=== PATIENT | female | born 1935 | race Caucasian/White ===

== ENCOUNTER 2017-11-13 15:44 | Emergency (ER) | payer MEDICARE, OTHER ==
--- NOTE | 2017-11-13 18:39 | EDM.PDOC ---
ED HPI GENERAL MEDICAL PROBLEM - General Chief Complaint: Headache Stated Complaint: CONCERNED ABOUT STROKE,FEELS FINE NOW Time Seen by Provider: 11/13/17 18:20 Source of Information: Reports: Patient, Family, Old Records History Limitations: Reports: No Limitations - History of Present Illness INITIAL COMMENTS - FREE TEXT/NARRATIVE: 82 yo nearly 3 ppd smoker awoke from a nap this afternoon with slurred speech and a mild FOX. Her sx's lasted about 2.5 minutes and she is now back to her baseline. Her daughter witnessed this and is visiting from [place]. Is already on aspirin. No pHx of CVA. Is on ASA daily and did take it today. Does not use alcohol. No chest pain. No hx of afib. Onset: Today Onset Date: 11/13/17 Onset Time: 14:30 Duration: Minutes: (2.5 estimated.), Resolved Prior to Arrival Location: Reports: Face (speech affected) Quality: Reports: Other (no pain) Severity: Mild Improves with: Reports: Other (time) Worsens with: Reports: Other (? 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 below) (none) - Related Data Allergies Allergy/AdvReac Type Severity Reaction Status Date / Time No Known Allergies Allergy Verified 11/13/17 16:45 Home Meds: Home Meds Digoxin 0.25 mg PO DAILY 11/13/17 [History] Insulin Glarg,Human.Rec.Analog [Lantus Solostar] 18 units SQ DAILY 11/13/17 [ History] Lisinopril [Prinivil] 30 mg PO DAILY 11/13/17 [History] SitaGLIPtin [Januvia] 100 mg PO DAILY 11/13/17 [History] metFORMIN [Glucophage] 1,000 mg PO BIDMEALS 11/13/17 [History] Past Medical History HEENT History: Reports: Cataract, Impaired Vision Cardiovascular History: Reports: Arrhythmia, Hypertension Gastrointestinal History: Reports: Cholelithiasis, Diverticulosis 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: Musculoskeletal History: Reports: Arthritis, Fracture Endocrine/Metabolic History: Reports: Diabetes, Type II - Past Surgical History GI Surgical History: Reports: Cholecystectomy, Colon Social & Family History - Tobacco Use Smoking Status *Q: Current Every Day Smoker Years of Tobacco use: 70 Packs/Tins Daily: 3 - Caffeine Use Caffeine Use: Reports: Coffee - Recreational Drug Use Recreational Drug Use: No ED ROS GENERAL - Review of Systems Review Of Systems: See Below Constitutional: Reports: No Symptoms HEENT: Reports: No Symptoms Respiratory: Reports: No Symptoms Cardiovascular: Reports: No Symptoms GI/Abdominal: Reports: No Symptoms : Reports: No Symptoms Musculoskeletal: Reports: No Symptoms Skin: Reports: No Symptoms Neurological: Reports: Trouble Speaking Psychiatric: Reports: No Symptoms ED EXAM, NEURO - Physical Exam Exam: See Below Exam Limited By: No Limitations General Appearance: Alert, WD/WN, No Apparent Distress Eye Exam: Bilateral Eye: EOMI, Normal Inspection, PERRL Ears: Normal External Exam, Normal Canal, Hearing Grossly Normal Nose: Normal Inspection, Normal Mucosa, No Blood Throat/Mouth: Normal Inspection, Normal Lips, Normal Oropharynx, Normal Voice, No Airway Compromise Head Exam: Atraumatic, Normocephalic Neck: Normal Inspection, Supple, Non-Tender Respiratory/Chest: No Respiratory Distress, Lungs Clear, Normal Breath Sounds, No Accessory Muscle Use, Decreased Breath Sounds (diffusely) Cardiovascular: Regular Rate, Rhythm, No Edema GI/Abdominal: Normal Bowel Sounds, Soft, Non-Tender, No Distention Neurological: Alert, Normal Mood/Affect, Normal Dorsiflexion, CN II-XII Intact, No Motor/Sensory Deficits, Oriented x 3 Back Exam: Normal Inspection Extremities: Normal Inspection, Normal Range of Motion, Non-Tender, No Pedal Edema Psychiatric: Normal Affect, Normal Mood Skin Exam: Warm, Dry, Intact, Normal Color, No Rash Course - Vital Signs Last Recorded V/S: Last Vital Signs Temp 36.9 C 11/13/17 17:05 Pulse 73 11/13/17 19:19 Resp 15 11/13/17 19:19 BP 160/72 H 11/13/17 19:21 Pulse Ox 94 L 11/13/17 19:19 - Orders/Labs/Meds Orders: Active Orders 24 hr Category Date Time Status Cardiac Monitoring [RC] .As Directed Care 11/13/17 18:32 Active Head wo Cont [CT] Stat Exams 11/13/17 18:33 Taken CULTURE URINE [RM] Stat Lab 11/13/17 19:45 Received UA W/MICROSCOPIC [URIN] Stat Lab 11/13/17 19:15 Ordered Labs: Laboratory Tests 11/13/17 11/13/17 11/13/17 Range/Units 18:35 18:35 19:15 WBC 9.9 (4.5-11.0) K/uL RBC 4.85 (3.30-5.50) M/uL Hgb 14.3 (12.0-15.0) g/dL Hct 41.5 (36.0-48.0) % MCV 86 (80-98) fL MCH 30 (27-31) pg MCHC 35 (32-36) % Plt Count 301 (150-400) K/uL Sodium 137 L (140-148) mmol/L Potassium 4.3 (3.6-5.2) mmol/L Chloride 100 (100-108) mmol/L Carbon Dioxide 29 (21-32) mmol/L Anion Gap 12.3 (5.0-14.0) mmol/L BUN 12 (7-18) mg/dL Creatinine 0.8 (0.6-1.0) mg/dL Est Cr Clr Drug Dosing 45.62 mL/min Estimated GFR (MDRD) > 60 (>60) Glucose 104 (74-106) mg/dL Calcium 9.4 (8.5-10.1) mg/dL Troponin I < 0.017 (0.000-0.056) ng/mL Urine Color Yellow Urine Appearance Cloudy Urine pH 6.0 (4.5-8.0) Ur Specific [place] 1.015 (1.008-1.030) Urine Protein Negative (NEGATIVE) mg/dL Urine Glucose (UA) Normal (NEGATIVE) mg/dL Urine Ketones Negative (NEGATIVE) mg/dL Urine Occult Blood Negative (NEGATIVE) Urine Nitrite Positive H (NEGATIVE) Urine Bilirubin Negative (NEGATIVE) Urine Urobilinogen Normal (NORMAL) mg/dL Ur Leukocyte Esterase Negative (NEGATIVE) Urine RBC 0-5 (0-5) Urine WBC 5-10 H (0-5) Ur Epithelial Cells Few Amorphous Sediment Not seen Urine Bacteria Many Urine Mucus Not seen Meds: Medications Discontinued Medications Generic Name Dose Route Start Last Admin Trade Name Freq PRN Reason Stop Dose Admin Lisinopril 10 mg 11/13/17 19:07 11/13/17 19:21 Prinivil PO 11/13/17 19:08 10 mg ONETIME ONE Administration - Radiology Interpretation Free Text/Narrative:: Head CT scan-negative CT Results Date: 11/13/17 CT Results Time: 20:20 Departure - Departure Time of Disposition: 20:31 Disposition: Home, Self-Care 01 Condition: Fair Clinical Impression: Tobacco abuse TIA (transient ischemic attack) Qualifiers: Transient cerebral ischemia type: carotid artery syndrome (hemispheric) Qualified Code(s): G45.1 - Carotid artery syndrome (hemispheric) - Discharge Information Referrals: Panfilo De Leon MD [Primary Care Provider] - Forms: ED Department Discharge Additional Instructions: Increase your lisinopril to 40 mg daily. Continue your aspirin daily. See your doctor soon for a lipid panel if you've not had one in the past 5 yrs. Return for a carotid ultrasound to see if you have any blockages in those arteries that feed your brain. Smoke as little as possible and work with your provider to help you find ways to quit. Also return for a Holter monitor to make sure you are not having episodes of atrial fibrillation that would raise your risk of stroke. Return as needed. - My Orders Last 24 Hours: My Active Orders 11/13/17 18:32 Cardiac Monitoring [RC] .As Directed 11/13/17 18:33 Head wo Cont [CT] Stat 11/13/17 19:15 UA W/MICROSCOPIC [URIN] Stat 11/13/17 19:45 CULTURE URINE [RM] Stat - Assessment/Plan Last 24 Hours: My Active Orders 11/13/17 18:32 Cardiac Monitoring [RC] .As Directed 11/13/17 18:33 Head wo Cont [CT] Stat 11/13/17 19:15 UA W/MICROSCOPIC [URIN] Stat 11/13/17 19:45 CULTURE URINE [RM] Stat
[2017-11-13] MEDS ORDERED: Lisinopril 10 MG Tab PO ONE (19:07)
== END 2017-11-13 20:40 | disposition home or self-care (01) ==
LOC: JP.ED 15:44
DX: G45.1 Carotid artery syndrome (hemispheric) (principal); F17.210 Nicotine dependence, cigarettes, uncomplicated; I10 Essential (primary) hypertension; E11.9 Type 2 diabetes mellitus without complications; Z79.4 Long term (current) use of insulin; Z79.899 Other long term (current) drug therapy
CPT/HCPCS: 36415; 70450; 80048; 81001; 84484; 85027; 87086; 99284; A9270

== ENCOUNTER 2020-01-06 10:00 | Inpatient (IN) | payer MEDICARE, OTHER ==
[2020-01-06] MEDS ORDERED: Sodium Chloride 0.9% 1,000 ML IV SCH ×2 (10:45→12:58)
--- NOTE | 2020-01-06 10:55 | EDM.PDOC ---
ED HPI GENERAL MEDICAL PROBLEM - General Chief Complaint: Lower Extremity Injury/Pain Stated Complaint: MEDICAL VIA NORTH Time Seen by Provider: 01/06/20 10:50 Source of Information: Reports: Patient History Limitations: Reports: No Limitations - History of Present Illness INITIAL COMMENTS - FREE TEXT/NARRATIVE: pt fell on Monday and she landed on her rt side. She slipped on wayer in her house. She had some pain at first but the pain has gotten progressively worse. She is not able to bear weight on the rt leg. Onset: Other (pt fell on Monday, ) Duration: Hour(s): Location: Reports: Lower Extremity, Right Associated Symptoms: Reports: Other (pain in rt hip with movement. ) Right Hip Pain Score (Numeric/FACES): 2 - Related Data Allergies Allergy/AdvReac Type Severity Reaction Status Date / Time No Known Allergies Allergy Verified 01/06/20 10:08 Home Meds: Home Meds Digoxin 0.25 mg PO DAILY 11/13/17 [History] metFORMIN [Glucophage] 1,000 mg PO BIDMEALS 11/13/17 [History] Aspirin [Angelique Chewable Aspirin] 81 mg PO DAILY 01/06/20 [History] Insulin Detemir [Levemir Flextouch] 22 units SUBCUT BEDTIME 01/06/20 [History] Liraglutide [Victoza] 0.6 ml SUBCUT DAILY 01/06/20 [History] lisinopriL [Lisinopril] 30 mg PO DAILY 01/06/20 [History] Past Medical History HEENT History: Reports: Cataract, Impaired Vision Cardiovascular History: Reports: Arrhythmia, Hypertension Gastrointestinal History: Reports: Cholelithiasis, Diverticulosis 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: Musculoskeletal History: Reports: Arthritis, Fracture Endocrine/Metabolic History: Reports: Diabetes, Type II - Past Surgical History HEENT Surgical History: Reports: Cataract Surgery GI Surgical History: Reports: Cholecystectomy, Colon Social & Family History - Tobacco Use Smoking Status *Q: Heavy Tobacco Smoker Years of Tobacco use: 67 Packs/Tins Daily: 2 - Caffeine Use Caffeine Use: Reports: Coffee - Recreational Drug Use Recreational Drug Use: No Review of Systems - Review of Systems Review Of Systems: See Below Constitutional: Reports: No Symptoms Eyes: Reports: No Symptoms Ears: Reports: No Symptoms Nose: Reports: No Symptoms Mouth/Throat: Reports: No Symptoms Respiratory: Reports: No Symptoms Cardiovascular: Reports: No Symptoms GI/Abdominal: Reports: No Symptoms Genitourinary: Reports: No Symptoms Musculoskeletal: Reports: Other (pain in the rt hip area. ) Skin: Reports: No Symptoms Neurological: Reports: No Symptoms ED EXAM, GENERAL - Physical Exam Exam: See Below Free Text/Narrative:: pt arrived with pain in her rt hip. Sh fell on Monday and has been having a fair amount of pain since that time. She has no other injuries. She is a diabetic but has not had recent problems. Exam Limited By: No Limitations General Appearance: Alert, Anxious, Moderate Distress, Other (pupils equal and reactive. ) Ears: Normal TMs Nose: Normal Inspection Throat/Mouth: Normal Inspection Head: Atraumatic Neck: Normal Inspection Respiratory/Chest: No Respiratory Distress Cardiovascular: Regular Rate, Rhythm GI/Abdominal: Soft, Non-Tender (Female) Exam: Deferred Rectal (Female) Exam: Deferred Back Exam: Normal Inspection Extremities: Other (pt has pain in the rt hip with any motion. It is rotated outward. ) Neurological: Alert, Oriented, Normal Cognition Psychiatric: Normal Affect Course - Vital Signs Last Recorded V/S: Last Vital Signs Temp 36.2 C 01/06/20 10:04 Pulse 86 01/06/20 10:04 Resp 16 01/06/20 10:04 BP 173/75 H 01/06/20 10:04 Pulse Ox 96 01/06/20 10:04 - Orders/Labs/Meds Orders: Active Orders 24 hr Category Date Time Status EKG Documentation Completion [RC] ASDIRECTED Care 01/06/20 10:50 Active Hip Min 2V or 3V w Pelvis Rt [CR] Stat Exams 01/06/20 10:23 Taken COMPREHENSIVE METABOLIC PN,CMP [CHEM] Urgent Lab 01/06/20 10:59 Received UA W/MICROSCOPIC [URIN] Urgent Lab 01/06/20 10:44 Ordered Sodium Chloride 0.9% [Normal Saline] 1,000 ml Med 01/06/20 10:45 Active IV ASDIRECTED EKG 12 Lead [EK] Routine Ther 01/06/20 10:50 Ordered Medication Orders Sodium Chloride (Normal Saline) 1,000 mls @ 250 mls/hr IV ASDIRECTED SHELBI Last Admin: 01/06/20 10:58 Dose: 250 mls/hr Documented by: LIZZIE Labs: Laboratory Tests 01/06/20 Range/Units 10:59 WBC 14.2 H (4.5-11.0) K/uL RBC 5.02 (3.30-5.50) M/uL Hgb 14.6 (12.0-15.0) g/dL Hct 43.2 (36.0-48.0) % MCV 86 (80-98) fL MCH 29 (27-31) pg MCHC 34 (32-36) % Plt Count 312 (150-400) K/uL Neut % (Auto) 83 H (36-66) % Lymph % (Auto) 11 L (24-44) % [place] % (Auto) 5 (2-6) % Eos % (Auto) 1 L (2-4) % Baso % (Auto) 0 (0-1) % Meds: Medications Generic Name Dose Route Start Last Admin Trade Name Freq PRN Reason Stop Dose Admin Sodium Chloride 1,000 mls @ 250 mls/hr 01/06/20 10:45 01/06/20 10:58 Normal Saline IV 250 mls/hr ASDIRECTED SHELBI Administration - Re-Assessments/Exams Free Text/Narrative Re-Assessment/Exam: 01/06/20 11:18 Pt was found to have a fracture in the neck of the hip with some impaction Departure - Departure Time of Disposition: 11:19 Disposition: Admitted As Inpatient 67 Condition: Fair Clinical Impression: Fracture of right hip, Diabetes mellitus - Discharge Information Referrals: PCP,None [Primary Care Provider] - Forms: ED Department Discharge Care Plan Goals: admit to Dr Ely and Dr Murcia Sepsis Event Note (ED) - Evaluation Sepsis Screening Result: No Definite Risk - Focused Exam Vital Signs: Vital Signs Temp Pulse Resp BP Pulse Ox 01/06/20 10:04 36.2 C 86 16 173/75 H 96 - My Orders Last 24 Hours: My Active Orders 01/06/20 10:23 Hip Min 2V or 3V w Pelvis Rt [CR] Stat 01/06/20 10:44 UA W/MICROSCOPIC [URIN] Urgent 01/06/20 10:45 Sodium Chloride 0.9% [Normal Saline] 1,000 ml IV ASDIRECTED 01/06/20 10:50 EKG Documentation Completion [RC] ASDIRECTED EKG 12 Lead [EK] Routine 01/06/20 10:59 COMPREHENSIVE METABOLIC PN,CMP [CHEM] Urgent - Assessment/Plan Last 24 Hours: My Active Orders 01/06/20 10:23 Hip Min 2V or 3V w Pelvis Rt [CR] Stat 01/06/20 10:44 UA W/MICROSCOPIC [URIN] Urgent 01/06/20 10:45 Sodium Chloride 0.9% [Normal Saline] 1,000 ml IV ASDIRECTED 01/06/20 10:50 EKG Documentation Completion [RC] ASDIRECTED EKG 12 Lead [EK] Routine 01/06/20 10:59 COMPREHENSIVE METABOLIC PN,CMP [CHEM] Urgent
--- NOTE | 2020-01-06 11:41 | PCM.HP.2 ---
H&P History of Present Illness - General Date of Service: 01/06/20 Admit Problem/Dx: Admission Diagnosis/Problem Admission Diagnosis/Problem Fracture of hip Source of Information: Patient, Family, Provider, RN Notes Reviewed History Limitations: Reports: No Limitations - History of Present Illness Initial Comments - Free Text/Narative: Ms. Ng is an 84-year-old woman who was admitted through the emergency department for further management of right hip pain secondary to a right hip fracture. She had been doing relatively well until 3 days prior to admission when she fell and noted immediate onset of right hip pain. She was able to get around over the next 3 days with use of a walker but had ongoing severe pain in her hip. She presented to the emergency department this morning and x-ray does document a fracture. This has been reviewed by Dr. Rogers, plan is for surgical repair. She otherwise has been doing relatively well up until the fall. Denies recent symptoms of chest pain or pressure or increased shortness of breath. She has a 94-vuro-weim smoking history and smoked up until the time of this admission. She has had no difficulty with general anesthesia and has no family history of adverse reaction to general anesthetic. She denies any hi story of DVT, PE, or bleeding abnormalities. Right Hip Pain Score (Numeric/FACES): 2 - Related Data Allergies/Adverse Reactions: Allergies Allergy/AdvReac Type Severity Reaction Status Date / Time No Known Allergies Allergy Verified 01/06/20 10:08 Home Medications: Home Meds Digoxin 0.25 mg PO DAILY 11/13/17 [History] metFORMIN [Glucophage] 1,000 mg PO BIDMEALS 11/13/17 [History] Aspirin [Angelique Chewable Aspirin] 81 mg PO DAILY 01/06/20 [History] Insulin Detemir [Levemir Flextouch] 22 units SUBCUT BEDTIME 01/06/20 [History] Liraglutide [Victoza] 0.6 ml SUBCUT DAILY 01/06/20 [History] lisinopriL [Lisinopril] 30 mg PO DAILY 01/06/20 [History] Past Medical History HEENT History: Reports: Cataract, Impaired Vision Cardiovascular History: Reports: Arrhythmia, Hypertension Gastrointestinal History: Reports: Cholelithiasis, Diverticulosis 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: Musculoskeletal History: Reports: Arthritis, Fracture Endocrine/Metabolic History: Reports: Diabetes, Type II - Past Surgical History HEENT Surgical History: Reports: Cataract Surgery GI Surgical History: Reports: Cholecystectomy, Colon Social & Family History - Tobacco Use Smoking Status *Q: Heavy Tobacco Smoker Years of Tobacco use: 67 Packs/Tins Daily: 2 - Caffeine Use Caffeine Use: Reports: Coffee - Recreational Drug Use Recreational Drug Use: No H&P Review of Systems - Review of Systems: Review Of Systems: See Below General: Reports: No Symptoms HEENT: Reports: No Symptoms Pulmonary: Reports: No Symptoms Cardiovascular: Reports: No Symptoms Gastrointestinal: Reports: No Symptoms Genitourinary: Reports: No Symptoms Musculoskeletal: Reports: Other (Right hip pain) Skin: Reports: No Symptoms Psychiatric: Reports: No Symptoms Neurological: Reports: No Symptoms Hematologic/Lymphatic: Reports: No Symptoms Immunologic: Reports: No Symptoms Exam - Exam Exam: See Below - Vital Signs Vital Signs: Last Vital Signs Temp 97.1 F 01/06/20 10:04 Pulse 84 01/06/20 11:08 Resp 16 01/06/20 11:08 BP 164/81 H 01/06/20 11:08 Pulse Ox 92 L 01/06/20 11:08 Weight: 135 lb - Exam Quality Assessment: DVT Prophylaxis General: Alert, Oriented, Cooperative, Moderate Distress HEENT: Conjunctiva Clear, Hearing Intact, Mucosa Moist & [place], Normal Nasal Septum, Posterior Pharynx Clear, Pupils Equal Neck: Supple, Trachea Midline, +2 Carotid Pulse wo Bruit Lungs: Clear to Auscultation, Normal Respiratory Effort, Decreased Breath Sounds Cardiovascular: Regular Rate, Regular Rhythm, Normal S1, Normal S2 GI/Abdominal Exam: Soft, Non-Tender, No Organomegaly, No Distention Skin: Warm, Dry, Intact Neurological: Cranial Nerves Intact, Strength Equal Bilateral, Normal Speech, Normal Tone, Sensation Intact. No: Focal Deficit Neuro Extensive - Mental Status: Alert, Oriented x3, Normal Mood/Affect, Normal Cognition, Memory Intact - Patient Data Lab Results Last 24 hrs: Laboratory Results - last 24 hr 01/06/20 Range/Units 10:59 WBC 14.2 H (4.5-11.0) K/uL RBC 5.02 (3.30-5.50) M/uL Hgb 14.6 (12.0-15.0) g/dL Hct 43.2 (36.0-48.0) % MCV 86 (80-98) fL MCH 29 (27-31) pg MCHC 34 (32-36) % Plt Count 312 (150-400) K/uL Neut % (Auto) 83 H (36-66) % Lymph % (Auto) 11 L (24-44) % [place] % (Auto) 5 (2-6) % Eos % (Auto) 1 L (2-4) % Baso % (Auto) 0 (0-1) % Result Diagrams: 01/06/20 10:59 01/06/20 10:59 Sepsis Event Note - Evaluation Sepsis Screening Result: No Definite Risk - Focused Exam Vital Signs: Vital Signs Temp Pulse Resp BP Pulse Ox 01/06/20 11:08 84 16 164/81 H 92 L 01/06/20 10:04 97.1 F 86 16 173/75 H 96 Date Exam was Performed: 01/06/20 Time Exam was Performed: 12:16 *Q Meaningful Use (ADM) - VTE *Q VTE Pharmacological Contraindications *Q: Patient Scheduled Surgery - VTE Risk Assess *Q Each Risk Factor Represents 1 Point: None Total Score 1 Point Risk Factors: 0 Each Risk Factor Represents 2 Points: None Total Score 2 Point Risk Factors: 0 Each Risk Factor Represents 3 Points: Age 75 Years or Greater Total Score 3 Point Risk Factors: 3 Each Risk Factor Represents 5 Points: Hip, Pelvis or Leg Fracture, Less than 1 month Total Score 5 Point Risk Factors: 5 Venous Thromboembolism Risk Factor Score *Q: 8 Problem List Initiated/Reviewed/Updated: Yes Orders Last 24hrs: Active Orders 24 hr Category Date Time Status Patient Status Manage Transfer [TRANSFER] Routine ADT 01/06/20 11:33 Active EKG Documentation Completion [RC] ASDIRECTED Care 01/06/20 10:50 Active Chest 1V Frontal [CR] Stat Exams 01/06/20 11:11 Taken Hip Min 2V or 3V w Pelvis Rt [CR] Stat Exams 01/06/20 10:23 Taken COMPREHENSIVE METABOLIC PN,CMP [CHEM] Urgent Lab 01/06/20 10:59 Received UA W/MICROSCOPIC [URIN] Urgent Lab 01/06/20 10:44 Ordered Sodium Chloride 0.9% [Normal Saline] 1,000 ml Med 01/06/20 10:45 Active IV ASDIRECTED Resuscitation Status Routine Resus Stat 01/06/20 11:35 Ordered EKG 12 Lead [EK] Routine Ther 01/06/20 10:50 Ordered Medication Orders Sodium Chloride (Normal Saline) 1,000 mls @ 250 mls/hr IV ASDIRECTED SHELBI Last Admin: 01/06/20 10:58 Dose: 250 mls/hr Documented by: LIZZIE Assessment/Plan Comment:: ASSESSMENT AND PLAN RIGHT HIP FRACTURE-she fell 3 days ago and has had significant pain in her right hip since then. X-ray obtained in the emergency department documents fracture. -Consult Dr. Rogers -N.p.o. until seen by Dr. Rogers -IV fluids for hydration -Pain and nausea medication as needed HYPERTENSION -Continue outpatient medications TYPE 2 DIABETES MELLITUS -Continue usual dose of long-acting insulin -Hold metformin -4 times daily glucometers -Low-dose sliding scale Humalog MAINTENANCE ISSUES -DVT prophylaxis; SCUDs, Lovenox postop -GI prophylaxis; not indicated -Byers catheter; not indicated -Nutrition; consistent carbohydrate diet -Nicotine dependence; nicotine patch and nicotine gum as needed CODE STATUS-FULL CODE ADMISSION STATUS-patient will be admitted to inpatient status, expect at least a 2 night hospital stay for evaluation and management of problems as outlined above. At the time of this admission I do not reasonably expected evaluation and management of this problem will require more than a 96 hour hospital stay. DISPOSITION-anticipate discharge to home after the hospital stay. PRIMARY CARE PROVIDER- - Mortality Measure Prognosis:: Good
[2020-01-06] MEDS ORDERED: Nicotine Polacrilex 2 MG Gum CHEW PRN (12:24)
--- NOTE | 2020-01-06 12:31 | CR ---
Hip Min 2V or 3V w Pelvis Rt CLINICAL HISTORY: Fall, right hip pain FINDINGS: Patient is comminuted fracture of the femoral neck. There is minimal displacement IMPRESSION: Comminuted fracture right femoral neck
--- NOTE | 2020-01-06 12:47 | CR ---
CHEST: Portable 01/06/2020 at 11:31 AM CLINICAL HISTORY:Hip fracture COMPARISON:None FINDINGS: The heart size, pulmonary vascularity and hilar structures are normal. No infiltrate effusion or pneumothorax is seen. Lungs are hyperaerated. IMPRESSION: No acute cardiopulmonary process. Emphysematous changes.
[2020-01-06] MEDS ORDERED: fentaNYL 100 MCG/2 ML SDV ONE (12:56)
[2020-01-06] MEDS ORDERED: Propofol 200 MG/20 ML SDV ONE (12:56)
[2020-01-06] MEDS ORDERED: Midazolam 1 MG/ML 2 ML SDV ONE (12:56)
[2020-01-06] MEDS ORDERED: Ondansetron 4 MG/2 ML SDV IV PRN (12:58)
[2020-01-06] MEDS ORDERED: 50% Dextrose in Water 50 ML Syringe IV PRN (12:58)
[2020-01-06] MEDS ORDERED: Acetaminophen 325 MG Tab PO PRN (12:58)
[2020-01-06] MEDS ORDERED: Polyethylene Glycol 3350 Powder 17 GM Packet PO PRN (12:58)
[2020-01-06] MEDS ORDERED: Glucose Gel 15 GM in 37.5 GM Tube PO PRN (12:58)
[2020-01-06] MEDS ORDERED: Sodium Chloride 0.9% 10 ML Syringe FLUSH PRN (12:58)
[2020-01-06] MEDS: Nicotine 21 MG/24 Hr Patch TRDERM SCH (13:48)
[2020-01-06] MEDS: HYDROmorphone 0.5 MG/0.5 ML Syringe IVPUSH PRN ×2 (13:48→22:39)
[2020-01-06] MEDS ORDERED: Povidone-Iodine 10% Soln 118.25 ML Bottle ONE (14:11)
[2020-01-06] MEDS ORDERED: ceFAZolin 1 GM Vial ONE (16:19)
[2020-01-06] MEDS ORDERED: Sodium Chloride 0.9% 10 ML ONE (16:19)
[2020-01-06] MEDS ORDERED: Lactated Ringers 1,000 ML ONE (16:44)
[2020-01-06] MEDS ORDERED: Morphine 2 MG/ML SYRINGE IVPUSH PRN (17:26)
[2020-01-06] MEDS ORDERED: traMADol 50 MG Tab PO PRN (17:26)
[2020-01-06] MEDS: Insulin Lispro 100 Unit/ML 3 ML KwikPen SUBCUT SCH ×2 (18:20→21:10)
[2020-01-06] MEDS: oxyCODONE 5 MG Tab PO PRN (19:54)
[2020-01-06] MEDS ORDERED: INSULIN DETEMIR 22 UNIT SUBCUT SCH (21:00)
[2020-01-06] MEDS: Insulin Glargine,Human Rec. Analog 100 Units/ML 3 ML Pen SUBCUT SCH (21:07)
[2020-01-06] MEDS: Nozin Nasal Sanitizer NASBOTH SCH (21:11)
[2020-01-06] MEDS: Aspirin 325 MG Tab.EC PO SCH (21:11)
[2020-01-07] MEDS ORDERED: ceFAZolin 1 GM in Sodium Chloride 0.9% 50 ML IV SCH ×2
[2020-01-07] MEDS: oxyCODONE 5 MG Tab PO PRN ×5 (02:36→22:53)
[2020-01-07] MEDS: Insulin Lispro 100 Unit/ML 3 ML KwikPen SUBCUT SCH ×4 (07:23→21:19)
[2020-01-07] MEDS ORDERED: ceFAZolin 1 GM in Premix Bag 1 BAG IV SCH (08:00)
[2020-01-07] MEDS: Nicotine 21 MG/24 Hr Patch TRDERM SCH (08:17)
[2020-01-07] MEDS: Docusate Sodium 100 MG Cap PO SCH (08:17)
[2020-01-07] MEDS: Aspirin 325 MG Tab.EC PO SCH ×2 (08:17→21:20)
[2020-01-07] MEDS: Liraglutide (rDNA Origin) 0.6 MG/0.1 ML 3 ML Pen SUBCUT SCH (08:21)
[2020-01-07] MEDS ORDERED: LISINOPRIL 30 MG PO SCH (09:00)
[2020-01-07] MEDS ORDERED: Non-Formulary Medication 1 Each (Digoxin [Digoxin] 0.25 MG) PO SCH (09:00)
[2020-01-07] MEDS ORDERED: Liraglutide (rDNA Origin) 0.6 MG/0.1 ML 3 ML Pen SUBCUT SCH (09:00)
[2020-01-07] MEDS: Nozin Nasal Sanitizer NASBOTH SCH ×2 (09:09→21:20)
--- NOTE | 2020-01-07 09:19 | CR ---
Hip Min 1V Rt CLINICAL HISTORY: Postop FINDINGS: Patient has had the placement of a right hemiprosthesis following femoral neck fracture. Component appears well-seated IMPRESSION: Postop placement right hip hemiarthroplasty
[2020-01-07] MEDS: Digoxin 125 MCG Tab PO SCH (12:34)
--- NOTE | 2020-01-07 12:41 | PCM.PN ---
- General Info Date of Service: 01/07/20 Subjective Update: Ms. Ng has been stable status post surgical repair of a right hip fracture yesterday afternoon by Dr. Rogers. She denies symptoms of chest pain or pressure shortness of breath nausea. Pain control has been adequate and she already has been up and transferring/ambulating. Functional Status: Reports: Tolerating Diet, Ambulating - Review of Systems General: Reports: No Symptoms Pulmonary: Reports: No Symptoms Cardiovascular: Reports: No Symptoms Gastrointestinal: Reports: No Symptoms Musculoskeletal: Reports: Joint Pain (Right hip) - Patient Data Vitals - Most Recent: Last Vital Signs Temp 98.7 F 01/07/20 11:00 Pulse 90 01/07/20 12:34 Resp 16 01/07/20 11:00 BP 141/53 H 01/07/20 11:00 Pulse Ox 98 01/07/20 11:00 Weight - Most Recent: 131 lb 3.2 oz I&O - Last 24 Hours: Intake & Output 01/06/20 01/07/20 01/07/20 22:59 06:59 14:59 Intake Total 290 Output Total 710 450 Balance -710 -450 290 Lab Results Last 24 Hours: Laboratory Results - last 24 hr 01/06/20 01/06/20 01/06/20 Range/Units 12:15 12:23 13:29 WBC (4.5-11.0) K/uL RBC (3.30-5.50) M/uL Hgb (12.0-15.0) g/dL Hct (36.0-48.0) % MCV (80-98) fL MCH (27-31) pg MCHC (32-36) % Plt Count (150-400) K/uL Neut % (Auto) (36-66) % Lymph % (Auto) (24-44) % [place] % (Auto) (2-6) % Eos % (Auto) (2-4) % Baso % (Auto) (0-1) % Sodium (140-148) mmol/L Potassium (3.6-5.2) mmol/L Chloride (100-108) mmol/L Carbon Dioxide (21-32) mmol/L Anion Gap (5.0-14.0) mmol/L BUN (7-18) mg/dL Creatinine (0.6-1.0) mg/dL Est Cr Clr Drug Dosing mL/min Estimated GFR (MDRD) (>60) Glucose (74-106) mg/dL POC Glucose (74-106) MG/DL Calcium (8.5-10.1) mg/dL Urine Color Yellow (YELLOW) Urine Appearance Slightly cloudy A (CLEAR) Urine pH 7.0 (5.0-8.0) Ur Specific [place] 1.020 (1.008-1.030) Urine Protein Negative (NEGATIVE) mg/dL Urine Glucose (UA) Negative (NEGATIVE) mg/dL Urine Ketones Trace H (NEGATIVE) mg/dL Urine Occult Blood Negative (NEGATIVE) Urine Nitrite Positive H (NEGATIVE) Urine Bilirubin Negative (NEGATIVE) Urine Urobilinogen 0.2 (0.2-1.0) EU/dL Ur Leukocyte Esterase Negative (NEGATIVE) Urine RBC Not seen (0-5) Urine WBC 0-5 (0-5) Ur Epithelial Cells Moderate Urine Bacteria Many Digoxin 1.09 (0.90-2.00) ng/mL SARS Virus RNA (PCR) Negative (NEGATIVE) 01/06/20 01/07/20 01/07/20 Range/Units 21:00 04:10 04:10 WBC 12.7 H (4.5-11.0) K/uL RBC 4.17 (3.30-5.50) M/uL Hgb 12.3 D (12.0-15.0) g/dL Hct 36.5 (36.0-48.0) % MCV 88 (80-98) fL MCH 30 (27-31) pg MCHC 34 (32-36) % Plt Count 304 (150-400) K/uL Neut % (Auto) 72 H (36-66) % Lymph % (Auto) 19 L (24-44) % Garvin % (Auto) 8 H (2-6) % Eos % (Auto) 1 L (2-4) % Baso % (Auto) 0 (0-1) % Sodium 137 L (140-148) mmol/L Potassium 4.0 (3.6-5.2) mmol/L Chloride 102 (100-108) mmol/L Carbon Dioxide 30 (21-32) mmol/L Anion Gap 9.0 (5.0-14.0) mmol/L BUN 12 (7-18) mg/dL Creatinine 0.9 (0.6-1.0) mg/dL Est Cr Clr Drug Dosing 39.18 mL/min Estimated GFR (MDRD) 60 (>60) Glucose 148 H (74-106) mg/dL POC Glucose 94 (74-106) MG/DL Calcium 8.7 (8.5-10.1) mg/dL Urine Color (YELLOW) Urine Appearance (CLEAR) Urine pH (5.0-8.0) Ur Specific [place] (1.008-1.030) Urine Protein (NEGATIVE) mg/dL Urine Glucose (UA) (NEGATIVE) mg/dL Urine Ketones (NEGATIVE) mg/dL Urine Occult Blood (NEGATIVE) Urine Nitrite (NEGATIVE) Urine Bilirubin (NEGATIVE) Urine Urobilinogen (0.2-1.0) EU/dL Ur Leukocyte Esterase (NEGATIVE) Urine RBC (0-5) Urine WBC (0-5) Ur Epithelial Cells Urine Bacteria Digoxin (0.90-2.00) ng/mL SARS Virus RNA (PCR) (NEGATIVE) 01/07/20 01/07/20 Range/Units 07:25 11:30 WBC (4.5-11.0) K/uL RBC (3.30-5.50) M/uL Hgb (12.0-15.0) g/dL Hct (36.0-48.0) % MCV (80-98) fL MCH (27-31) pg MCHC (32-36) % Plt Count (150-400) K/uL Neut % (Auto) (36-66) % Lymph % (Auto) (24-44) % Garvin % (Auto) (2-6) % Eos % (Auto) (2-4) % Baso % (Auto) (0-1) % Sodium (140-148) mmol/L Potassium (3.6-5.2) mmol/L Chloride (100-108) mmol/L Carbon Dioxide (21-32) mmol/L Anion Gap (5.0-14.0) mmol/L BUN (7-18) mg/dL Creatinine (0.6-1.0) mg/dL Est Cr Clr Drug Dosing mL/min Estimated GFR (MDRD) (>60) Glucose (74-106) mg/dL POC Glucose 115 H 102 (74-106) MG/DL Calcium (8.5-10.1) mg/dL Urine Color (YELLOW) Urine Appearance (CLEAR) Urine pH (5.0-8.0) Ur Specific [place] (1.008-1.030) Urine Protein (NEGATIVE) mg/dL Urine Glucose (UA) (NEGATIVE) mg/dL Urine Ketones (NEGATIVE) mg/dL Urine Occult Blood (NEGATIVE) Urine Nitrite (NEGATIVE) Urine Bilirubin (NEGATIVE) Urine Urobilinogen (0.2-1.0) EU/dL Ur Leukocyte Esterase (NEGATIVE) Urine RBC (0-5) Urine WBC (0-5) Ur Epithelial Cells Urine Bacteria Digoxin (0.90-2.00) ng/mL SARS Virus RNA (PCR) (NEGATIVE) Med Orders - Current: Current Medications Acetaminophen (Tylenol) 650 mg PO Q4H PRN PRN Reason: Pain (Mild 1-3)/fever Aspirin (Ecotrin) 325 mg PO BID [facility] Last Admin: 01/07/20 08:17 Dose: 325 mg Documented by: Bandage/Support Products ( Nasal Patient Transporter) 1 applic NASBOTH BID [facility] Stop: 01/13/20 21:01 Last Admin: 01/07/20 09:09 Dose: 1 applic Documented by: Dextrose (Glutose 15) 15 gm PO ASDIRECTED PRN PRN Reason: Hypoglycemia Dextrose/Water (Dextrose 50% In Water) 50 ml IV ASDIRECTED PRN PRN Reason: Hypoglycemia Digoxin (Lanoxin) 250 mcg PO DAILY@1300 [facility] Last Admin: 01/07/20 12:34 Dose: 250 mcg Documented by: Docusate Sodium (Colace) 100 mg PO DAILY [facility] Last Admin: 01/07/20 08:17 Dose: 100 mg Documented by: Hydromorphone HCl (Dilaudid) 0.5 mg IVPUSH Q2H PRN PRN Reason: Pain (severe 7-10) Last Admin: 01/06/20 22:39 Dose: 0.5 mg Documented by: Sodium Chloride (Normal Saline) 1,000 mls @ 125 mls/hr IV ASDIRECTED [facility] Last Admin: 01/07/20 05:20 Dose: 125 mls/hr Documented by: Cefazolin Sodium/Dextrose 1 gm (/ Premix) 50 mls @ 100 mls/hr IV Q8H [facility] Stop: 01/07/20 16:29 Last Admin: 01/07/20 08:15 Dose: 100 mls/hr Documented by: Insulin Glargine (Lantus Solostar) 22 units SUBCUT BEDTIME [facility] Last Admin: 01/06/20 21:07 Dose: 22 units Documented by: Insulin Human Lispro (Humalog) 0 unit SUBCUT QIDACANDBED [facility]; Protocol Last Admin: 01/07/20 11:40 Dose: Not Given Documented by: Liraglutide (Victoza) 0.6 mg SUBCUT DAILY [facility] Last Admin: 01/07/20 08:21 Dose: 0.6 mg Documented by: Lisinopril 10 mg/ Lisinopril (20 mg) 30 mg PO DAILY [facility] Last Admin: 01/07/20 08:19 Dose: 30 mg Documented by: Magnesium Hydroxide (Milk Of Magnesia) 30 ml PO Q6H PRN PRN Reason: Stool Softener Morphine Sulfate (Morphine) 1 mg IVPUSH Q1H PRN PRN Reason: Breakthrough Pain Nicotine (Habitrol) 21 mg TRDERM DAILY [facility] Last Admin: 01/07/20 08:17 Dose: 21 mg Documented by: Nicotine Polacrilex (Nicorelief) 2 mg CHEW Q1H PRN PRN Reason: Other Ondansetron HCl (Zofran) 4 mg IV Q4H PRN PRN Reason: Nausea/Vomiting Oxycodone HCl (Oxycodone) 5 mg PO Q4H PRN PRN Reason: Pain (moderate 4-6) Last Admin: 01/07/20 12:35 Dose: 5 mg Documented by: Polyethylene Glycol (Miralax) 17 gm PO DAILY PRN PRN Reason: Constipation Sodium Chloride (Saline Flush) 10 ml FLUSH ASDIRECTED PRN PRN Reason: Keep Vein Open Tramadol HCl (Ultram) 50 mg PO Q6H PRN PRN Reason: Pain (mild 1-3) Discontinued Medications Cefazolin Sodium (Ancef) Confirm Administered Dose 1 gm .ROUTE .STK-MED ONE Stop: 01/06/20 16:20 Fentanyl (Sublimaze) Confirm Administered Dose 100 mcg .ROUTE .STK-MED ONE Stop: 01/06/20 12:57 Sodium Chloride (Normal Saline) 1,000 mls @ 250 mls/hr IV ASDIRECTED [facility] Last Admin: 01/06/20 10:58 Dose: 250 mls/hr Documented by: Sodium Chloride (Normal Saline) Confirm Administered Dose 10 mls @ as directed .ROUTE .STK-MED ONE Stop: 01/06/20 16:20 Lactated Ringer's (Ringers, Lactated) Confirm Administered Dose 1,000 mls @ as directed .ROUTE .STK-MED ONE Stop: 01/06/20 16:45 Cefazolin Sodium 1 gm/ Sodium (Chloride) 50 mls @ 200 mls/hr IV Q8H [facility] Stop: 01/07/20 16:14 Last Admin: 01/06/20 23:18 Dose: 200 mls/hr Documented by: Lisinopril 10 mg/ Lisinopril (20 mg) 30 mg PO DAILY [facility] Midazolam HCl (Versed 1 Mg/Ml) Confirm Administered Dose 2 mg .ROUTE .STK-MED ONE Stop: 01/06/20 12:57 Povidone Iodine (Betadine 10% Soln) Confirm Administered Dose 1 ml .ROUTE .STK- MED ONE Stop: 01/06/20 14:12 Last Admin: 01/06/20 17:00 Dose: 1 ml Documented by: Propofol (Diprivan 20 Ml) Confirm Administered Dose 200 mg .ROUTE .STK-MED ONE Stop: 01/06/20 12:57 - Exam Quality Assessment: DVT Prophylaxis General: Alert, Oriented, Cooperative, Moderate Distress Lungs: Clear to Auscultation, Normal Respiratory Effort Cardiovascular: Regular Rate, Regular Rhythm, No Murmurs GI/Abdominal Exam: Soft, Non-Tender, No Organomegaly, No Distention Sepsis Event Note - Evaluation Sepsis Screening Result: No Definite Risk - Focused Exam Vital Signs: Vital Signs Temp Temp Pulse Pulse Resp BP BP 01/07/20 12:34 90 01/07/20 11:00 98.7 F 16 141/53 H 01/07/20 08:19 128/73 01/07/20 07:00 97.7 F 85 16 128/73 01/07/20 02:35 98.9 F 90 18 132/61 Pulse Ox 01/07/20 12:34 01/07/20 11:00 98 01/07/20 08:19 01/07/20 07:00 96 01/07/20 02:35 97 Date Exam was Performed: 01/07/20 Time Exam was Performed: 12:37 - Problem List Review Problem List Initiated/Reviewed/Updated: Yes - My Orders Last 24 Hours: My Active Orders 01/06/20 12:24 Nicotine Polacrilex [Nicorelief] 2 mg CHEW Q1H PRN 01/06/20 12:30 Nicotine [Habitrol] 21 mg TRDERM DAILY 01/06/20 12:58 Acetaminophen [Tylenol] 650 mg PO Q4H PRN Dextrose 50% in Water 50 ml IV ASDIRECTED PRN Dextrose [Glutose 15] 15 gm PO ASDIRECTED PRN HYDROmorphone [Dilaudid] 0.5 mg IVPUSH Q2H PRN Ondansetron [Zofran] 4 mg IV Q4H PRN Sodium Chloride 0.9% [Normal Saline] 1,000 ml IV ASDIRECTED Sodium Chloride 0.9% [Saline Flush] 10 ml FLUSH ASDIRECTED PRN oxyCODONE 5 mg PO Q4H PRN polyethylene glycoL 3350 [MiraLAX] 17 gm PO DAILY PRN 01/06/20 12:58 Patient Status [ADT] Routine Diabetes Education [RC] Click to Edit Height and Weight [RC] 0500 Intake and Output [RC] QSHIFT Notify Provider [RC] PRN Oxygen Therapy [RC] PRN Peripheral IV Care [RC] Q12H Up With Assistance [RC] ASDIRECTED Vital Signs [RC] Q4H Peripheral IV Insertion Adult [OM.PC] Routine Sequential Compression Device [OM.PC] Per Unit Routine 01/06/20 14:30 Lisinopril [Prinivil] 30 mg PO DAILY 01/06/20 17:00 Insulin Lispro [HumaLOG] See Protocol SUBCUT QIDACANDBED 01/06/20 21:00 Insulin Glarg,Human.Rec.Analog [LantUS Solostar] 22 units SUBCUT BEDTIME 01/07/20 09:00 Liraglutide [Victoza] 0.6 mg SUBCUT DAILY 01/07/20 13:00 Digoxin [Lanoxin] 250 mcg PO DAILY@1300 01/07/20 16:30 GLUCOSE POC LAB TO COLLECT JPM [POC] QIDACANDBED 01/07/20 21:00 GLUCOSE POC LAB TO COLLECT JPM [POC] QIDACANDBED 01/08/20 07:30 GLUCOSE POC LAB TO COLLECT JPM [POC] QIDACANDBED 01/08/20 11:30 GLUCOSE POC LAB TO COLLECT JPM [POC] QIDACANDBED 01/08/20 16:30 GLUCOSE POC LAB TO COLLECT JPM [POC] QIDACANDBED 01/08/20 21:00 GLUCOSE POC LAB TO COLLECT JPM [POC] QIDACANDBED 01/09/20 07:30 GLUCOSE POC LAB TO COLLECT JPM [POC] QIDACANDBED 01/09/20 11:30 GLUCOSE POC LAB TO COLLECT JPM [POC] QIDACANDBED 01/09/20 16:30 GLUCOSE POC LAB TO COLLECT JPM [POC] QIDACANDBED 01/09/20 21:00 GLUCOSE POC LAB TO COLLECT JPM [POC] QIDACANDBED 01/10/20 07:30 GLUCOSE POC LAB TO COLLECT JPM [POC] QIDACANDBED 01/10/20 11:30 GLUCOSE POC LAB TO COLLECT JPM [POC] QIDACANDBED 01/10/20 16:30 GLUCOSE POC LAB TO COLLECT JPM [POC] QIDACANDBED 01/10/20 21:00 GLUCOSE POC LAB TO COLLECT JPM [POC] QIDACANDBED 01/11/20 07:30 GLUCOSE POC LAB TO COLLECT JPM [POC] QIDACANDBED 01/11/20 11:30 GLUCOSE POC LAB TO COLLECT JPM [POC] QIDACANDBED - Plan Plan:: ASSESSMENT AND PLAN RIGHT HIP FRACTURE-status post surgical repair yesterday by Dr. Rogers -Postoperative care per Dr. Rogers HYPERTENSION -Continue outpatient medications TYPE 2 DIABETES MELLITUS -Continue usual dose of long-acting insulin -Hold metformin -4 times daily glucometers -Low-dose sliding scale Humalog MAINTENANCE ISSUES -DVT prophylaxis; SCUDs, Lovenox postop -GI prophylaxis; not indicated -Byers catheter; not indicated -Nutrition; consistent carbohydrate diet -Nicotine dependence; nicotine patch and nicotine gum as needed CODE STATUS-FULL CODE ADMISSION STATUS-patient will be admitted to inpatient status, expect at least a 2 night hospital stay for evaluation and management of problems as outlined above. At the time of this admission I do not reasonably expected evaluation and management of this problem will require more than a 96 hour hospital stay. DISPOSITION-anticipate discharge to home after the hospital stay. PRIMARY CARE PROVIDER-
[2020-01-07] MEDS: Insulin Glargine,Human Rec. Analog 100 Units/ML 3 ML Pen SUBCUT SCH (21:20)
[2020-01-08] MEDS: Magnesium Hydroxide 400 MG/5 ML Susp 30 ML Cup PO PRN ×2 (05:32→21:25)
[2020-01-08] MEDS: Insulin Lispro 100 Unit/ML 3 ML KwikPen SUBCUT SCH ×4 (07:32→21:22)
[2020-01-08] MEDS: Nozin Nasal Sanitizer NASBOTH SCH ×2 (08:28→20:01)
[2020-01-08] MEDS: Aspirin 325 MG Tab.EC PO SCH ×2 (08:29→20:02)
[2020-01-08] MEDS: Nicotine 21 MG/24 Hr Patch TRDERM SCH (08:29)
[2020-01-08] MEDS: Docusate Sodium 100 MG Cap PO SCH (08:29)
[2020-01-08] MEDS: Liraglutide (rDNA Origin) 0.6 MG/0.1 ML 3 ML Pen SUBCUT SCH (08:30)
--- NOTE | 2020-01-08 10:43 | PCM.PN ---
- General Info Date of Service: 01/08/20 Subjective Update: Ms. Ng continues to do well, working with physical therapy and has been able to ambulate short distances. Functional Status: Reports: Tolerating Diet, Ambulating - Review of Systems General: Reports: Weakness, Malaise. Denies: Fever, Chills Pulmonary: Reports: No Symptoms Cardiovascular: Reports: No Symptoms Gastrointestinal: Reports: No Symptoms Musculoskeletal: Reports: Joint Pain - Patient Data Vitals - Most Recent: Last Vital Signs Temp 98.9 F 01/08/20 10:32 Pulse 83 01/08/20 10:32 Resp 18 01/08/20 10:32 BP 142/65 H 01/08/20 10:32 Pulse Ox 96 01/08/20 10:32 Weight - Most Recent: 131 lb 3.189 oz I&O - Last 24 Hours: Intake & Output 01/07/20 01/08/20 01/08/20 22:59 06:59 14:59 Intake Total 960 Output Total 550 Balance 410 Lab Results Last 24 Hours: Laboratory Results - last 24 hr 01/07/20 01/07/20 01/07/20 Range/Units 11:30 16:27 20:55 POC Glucose 102 103 142 H (74-106) MG/DL 01/08/20 Range/Units 07:30 POC Glucose 94 (74-106) MG/DL Med Orders - Current: Current Medications Acetaminophen (Tylenol) 650 mg PO Q4H PRN PRN Reason: Pain (Mild 1-3)/fever Last Admin: 01/07/20 22:53 Dose: 650 mg Documented by: Aspirin (Ecotrin) 325 mg PO BID [facility] Last Admin: 01/08/20 08:29 Dose: 325 mg Documented by: Bandage/Support Products ( Nasal Investigator Fraud) 1 applic NASBOTH BID [facility] Stop: 01/13/20 21:01 Last Admin: 01/08/20 08:28 Dose: 1 applic Documented by: Dextrose (Glutose 15) 15 gm PO ASDIRECTED PRN PRN Reason: Hypoglycemia Digoxin (Lanoxin) 250 mcg PO DAILY@1300 [facility] Last Admin: 01/07/20 12:34 Dose: 250 mcg Documented by: Docusate Sodium (Colace) 100 mg PO DAILY [facility] Last Admin: 01/08/20 08:29 Dose: 100 mg Documented by: Insulin Glargine (Lantus Solostar) 22 units SUBCUT BEDTIME [facility] Last Admin: 01/07/20 21:20 Dose: 22 units Documented by: Insulin Human Lispro (Humalog) 0 unit SUBCUT QIDACANDBED [facility]; Protocol Last Admin: 01/08/20 07:32 Dose: Not Given Documented by: Liraglutide (Victoza) 0.6 mg SUBCUT DAILY [facility] Last Admin: 01/08/20 08:30 Dose: 0.6 mg Documented by: Lisinopril 10 mg/ Lisinopril (20 mg) 30 mg PO DAILY [facility] Last Admin: 01/08/20 08:29 Dose: 30 mg Documented by: Magnesium Hydroxide (Milk Of Magnesia) 30 ml PO Q6H PRN PRN Reason: Stool Softener Last Admin: 01/08/20 05:32 Dose: 30 ml Documented by: Nicotine (Habitrol) 21 mg TRDERM DAILY [facility] Last Admin: 01/08/20 08:29 Dose: 21 mg Documented by: Nicotine Polacrilex (Nicorelief) 2 mg CHEW Q1H PRN PRN Reason: Other Oxycodone HCl (Oxycodone) 5 mg PO Q4H PRN PRN Reason: Pain (moderate 4-6) Last Admin: 01/07/20 22:53 Dose: 5 mg Documented by: Polyethylene Glycol (Miralax) 17 gm PO DAILY PRN PRN Reason: Constipation Tramadol HCl (Ultram) 50 mg PO Q6H PRN PRN Reason: Pain (mild 1-3) Discontinued Medications Cefazolin Sodium (Ancef) Confirm Administered Dose 1 gm .ROUTE .STK-MED ONE Stop: 01/06/20 16:20 Dextrose/Water (Dextrose 50% In Water) 50 ml IV ASDIRECTED PRN PRN Reason: Hypoglycemia Fentanyl (Sublimaze) Confirm Administered Dose 100 mcg .ROUTE .STK-MED ONE Stop: 01/06/20 12:57 Hydromorphone HCl (Dilaudid) 0.5 mg IVPUSH Q2H PRN PRN Reason: Pain (severe 7-10) Last Admin: 01/06/20 22:39 Dose: 0.5 mg Documented by: Sodium Chloride (Normal Saline) 1,000 mls @ 250 mls/hr IV ASDIRECTED [facility] Last Admin: 01/06/20 10:58 Dose: 250 mls/hr Documented by: Sodium Chloride (Normal Saline) 1,000 mls @ 125 mls/hr IV ASDIRECTED [facility] Last Admin: 01/07/20 05:20 Dose: 125 mls/hr Documented by: Sodium Chloride (Normal Saline) Confirm Administered Dose 10 mls @ as directed .ROUTE .[facility] Stop: 01/06/20 16:20 Lactated Ringer's (Ringers, Lactated) Confirm Administered Dose 1,000 mls @ as directed .ROUTE .[facility] ONE Stop: 01/06/20 16:45 Cefazolin Sodium 1 gm/ Sodium (Chloride) 50 mls @ 200 mls/hr IV Q8H [facility] Stop: 01/07/20 16:14 Last Admin: 01/06/20 23:18 Dose: 200 mls/hr Documented by: Cefazolin Sodium/Dextrose 1 gm (/ Premix) 50 mls @ 100 mls/hr IV Q8H [facility] Stop: 01/07/20 16:29 Last Admin: 01/07/20 08:15 Dose: 100 mls/hr Documented by: Lisinopril 10 mg/ Lisinopril (20 mg) 30 mg PO DAILY [facility] Midazolam HCl (Versed 1 Mg/Ml) Confirm Administered Dose 2 mg .ROUTE .[facility] ONE Stop: 01/06/20 12:57 Morphine Sulfate (Morphine) 1 mg IVPUSH Q1H PRN PRN Reason: Breakthrough Pain Ondansetron HCl (Zofran) 4 mg IV Q4H PRN PRN Reason: Nausea/Vomiting Povidone Iodine (Betadine 10% Soln) Confirm Administered Dose 1 ml .ROUTE .[facility] ONE Stop: 01/06/20 14:12 Last Admin: 01/06/20 17:00 Dose: 1 ml Documented by: Propofol (Diprivan 20 Ml) Confirm Administered Dose 200 mg .ROUTE .[facility] Stop: 01/06/20 12:57 Sodium Chloride (Saline Flush) 10 ml FLUSH ASDIRECTED PRN PRN Reason: Keep Vein Open - Exam General: Alert, Oriented, Cooperative, Mild Distress Lungs: Clear to Auscultation, Normal Respiratory Effort Cardiovascular: Regular Rate, Regular Rhythm, No Murmurs GI/Abdominal Exam: Soft, Non-Tender, No Organomegaly, No Distention Extremities: Non-Tender, No Pedal Edema Sepsis Event Note - Evaluation Sepsis Screening Result: No Definite Risk - Focused Exam Vital Signs: Vital Signs Temp Temp Pulse Resp BP BP Pulse Ox 01/08/20 10:32 98.9 F 83 18 142/65 H 96 01/08/20 08:29 136/67 01/08/20 07:04 98.4 F 81 18 136/67 97 01/08/20 02:46 96.5 F L 78 16 112/48 L 98 01/07/20 23:23 96.5 F L 01/07/20 22:53 99.4 F 01/07/20 22:52 99.4 F 74 18 95 Date Exam was Performed: 01/08/20 Time Exam was Performed: 10:42 - Problem List Review Problem List Initiated/Reviewed/Updated: Yes - My Orders Last 24 Hours: My Active Orders 01/07/20 13:00 Digoxin [Lanoxin] 250 mcg PO DAILY@1300 01/08/20 11:30 GLUCOSE POC LAB TO COLLECT JPM [POC] QIDACANDBED 01/08/20 16:30 GLUCOSE POC LAB TO COLLECT JPM [POC] QIDACANDBED 01/08/20 21:00 GLUCOSE POC LAB TO COLLECT JPM [POC] QIDACANDBED 01/09/20 07:30 GLUCOSE POC LAB TO COLLECT JPM [POC] QIDACANDBED 01/09/20 11:30 GLUCOSE POC LAB TO COLLECT JPM [POC] QIDACANDBED 01/09/20 16:30 GLUCOSE POC LAB TO COLLECT JPM [POC] QIDACANDBED 01/09/20 21:00 GLUCOSE POC LAB TO COLLECT JPM [POC] QIDACANDBED 01/10/20 07:30 GLUCOSE POC LAB TO COLLECT JPM [POC] QIDACANDBED 01/10/20 11:30 GLUCOSE POC LAB TO COLLECT JPM [POC] QIDACANDBED 01/10/20 16:30 GLUCOSE POC LAB TO COLLECT JPM [POC] QIDACANDBED 01/10/20 21:00 GLUCOSE POC LAB TO COLLECT JPM [POC] QIDACANDBED 01/11/20 07:30 GLUCOSE POC LAB TO COLLECT JPM [POC] QIDACANDBED 01/11/20 11:30 GLUCOSE POC LAB TO COLLECT JPM [POC] QIDACANDBED - Plan Plan:: ASSESSMENT AND PLAN RIGHT HIP FRACTURE-status post surgical repair by Dr. Rogers -Postoperative care per Dr. Rogers HYPERTENSION -Continue outpatient medications TYPE 2 DIABETES MELLITUS -Continue usual dose of long-acting insulin -Hold metformin -4 times daily glucometers -Low-dose sliding scale Humalog MAINTENANCE ISSUES -DVT prophylaxis; SCUDs, Lovenox postop -GI prophylaxis; not indicated -Byers catheter; not indicated -Nutrition; consistent carbohydrate diet -Nicotine dependence; nicotine patch and nicotine gum as needed CODE STATUS-FULL CODE ADMISSION STATUS-patient will be admitted to inpatient status, expect at least a 2 night hospital stay for evaluation and management of problems as outlined above. At the time of this admission I do not reasonably expected evaluation and management of this problem will require more than a 96 hour hospital stay. DISPOSITION-anticipate discharge to home after the hospital stay. PRIMARY CARE PROVIDER-
[2020-01-08] MEDS: Digoxin 125 MCG Tab PO SCH (13:13)
[2020-01-08] MEDS: oxyCODONE 5 MG Tab PO PRN (13:14)
[2020-01-08] MEDS ORDERED: Enoxaparin 30 MG/0.3 ML Syringe SUBCUT SCH (16:00)
[2020-01-08] MEDS: Insulin Glargine,Human Rec. Analog 100 Units/ML 3 ML Pen SUBCUT SCH (21:22)
[2020-01-09] MEDS: Insulin Lispro 100 Unit/ML 3 ML KwikPen SUBCUT SCH ×2 (07:50→11:50)
[2020-01-09] MEDS: Liraglutide (rDNA Origin) 0.6 MG/0.1 ML 3 ML Pen SUBCUT SCH (09:02)
[2020-01-09] MEDS: Aspirin 325 MG Tab.EC PO SCH (09:02)
[2020-01-09] MEDS: Nozin Nasal Sanitizer NASBOTH SCH (09:02)
[2020-01-09] MEDS: Docusate Sodium 100 MG Cap PO SCH (09:05)
[2020-01-09] MEDS: Nicotine 21 MG/24 Hr Patch TRDERM SCH (09:06)
--- NOTE | 2020-01-09 10:27 | PCM.DCSUM1 ---
Discharge Summary - Hospital Course Brief History: Ms. Ng is an 84-year-old woman who was admitted through the emergency department with right hip pain secondary to a fracture of the right femoral neck. - Discharge Data Discharge Date: 01/09/20 Discharge Disposition: DC/Tfer to SNF 03 Condition: Fair - Referral to Home Health Primary Care Physician: PCP None - Discharge Diagnosis/Problem(s) (1) Status post-operative repair of closed fracture of right hip SNOMED Code(s): 302232732 ICD Code: Z98.890 - OTHER SPECIFIED POSTPROCEDURAL STATES; Z87.81 - PERSONAL HISTORY OF (HEALED) TRAUMATIC FRACTURE Status: Acute Current Visit: Yes (2) Fracture of right hip SNOMED Code(s): 216815224 ICD Code: S72.001A - FRACTURE OF UNSP PART OF NECK OF RIGHT FEMUR, INIT Status: Acute Current Visit: Yes (3) Diabetes mellitus SNOMED Code(s): 91478480 ICD Code: E11.9 - TYPE 2 DIABETES MELLITUS WITHOUT COMPLICATIONS Status: Chronic Current Visit: Yes - Patient Summary/Data Consults: Consultations 01/06/20 17:26 Consult to Case Management/Mixing Operator [CONS] Routine Comment: Physician Instructions: Discharge placement post hip surgery Service(s) to be Consulted: Case Management PT Evaluation and Treatment [CONS] Routine Please Evaluate and Treat. PT Reason for Consult: Ambulation Discharge Disposition: Home w Home Health Special Instructions: posterior hip precautions, WBAT This query below is only for informational purposes and is not editable. Admission Diagnosis/Problem: Fracture of hip PT Evaluation and Treatment [CONS] Routine Please Evaluate and Treat. PT Reason for Consult: Post op Ortho Surgery Hip Pending Discharge: Yes, 2- -3 days Special Instructions: Schedule first outpatient P.T. appointment 3 - 5 days post discharge This query below is only for informational purposes and is not editable. Admission Diagnosis/Problem: Fracture of hip 01/06/20 17:32 OT Evaluation and Treatment [CONS] Routine Please Evaluate and Treat. OT Reason for Consult: ADL's Special Instructions: Status post Hip Surgery This query below is only for informational purposes and is not editable. Admission Diagnosis/Problem: Fracture of hip Hospital Course: Ms. Ng is an 84-year-old woman who was admitted through the emergency department for further management of right hip pain secondary to a right femoral neck fracture. She had been doing relatively well until 3 days prior to admission when she fell and noted immediate onset of right hip pain. She was able to get around over the next 3 days with use of a walker but had ongoing severe pain in her hip. She presented to the emergency department and x-ray documents a fracture of the right femoral neck. This has been reviewed by Dr. Rogers, plan is for surgical repair. She otherwise has been doing relatively well up until the fall. Denies recent symptoms of chest pain or pressure or increased shortness of breath. She has a [id number] smoking history and smoked up until the time of this admission. Later in the afternoon of admission she underwent surgical repair of the right femoral neck fracture with a unipolar prosthesis. She did well during postoperative care and by the time of discharge was ambulating short distances with use of her walker. Blood glucose levels were monitored throughout her hospital stay and remained within desired range. She will be discharged to the detention for restorative physical therapy and Occupational Therapy. She will be on a 3-week course of anticoagulation with Lovenox 30 mg subcu daily. Activity will be as tolerated and she will remain on a diabetic diet. Follow-up appointment will be scheduled with Dr. Rogers. - Patient Instructions Diet: Diabetic Diet Activity: As Tolerated Other/Special Instructions: Daily physical therapy and occupational therapy while at the detention. Please schedule follow-up appointment with Dr. Rogers - Discharge Plan *PRESCRIPTION DRUG MONITORING PROGRAM REVIEWED*: Not Applicable *COPY OF PRESCRIPTION DRUG MONITORING REPORT IN PATIENT ABRAHAM: Not Applicable Prescriptions/Med Rec: Enoxaparin [Lovenox] 30 mg SUBCUT Q24H #19 syringe oxyCODONE 5 mg PO Q4H PRN #20 tablet PRN Reason: Pain (Moderate 4-6) Home Medications: Home Meds Digoxin 0.25 mg PO DAILY 11/13/17 [History] metFORMIN [Glucophage] 1,000 mg PO BIDMEALS 11/13/17 [History] Aspirin [Angelique Chewable Aspirin] 81 mg PO DAILY 01/06/20 [History] Insulin Detemir [Levemir Flextouch] 22 units SUBCUT BEDTIME 01/06/20 [History] Liraglutide [Victoza] 0.6 mg SUBCUT DAILY 01/06/20 [History] lisinopriL [Lisinopril] 30 mg PO DAILY 01/06/20 [History] Enoxaparin [Lovenox] 30 mg SUBCUT Q24H #19 syringe 01/09/20 [Rx] oxyCODONE 5 mg PO Q4H PRN #20 tablet 01/09/20 [Rx] Referrals: Clay Rogers MD [Physician] - 01/21/20 2:00 pm (Please arrive 15 minutes early to register for your appointment. Please register at the ER desk.) - Discharge Summary/Plan Comment DC Time >30 min.: No - Patient Data Vitals - Most Recent: Last Vital Signs Temp 99.4 F 01/09/20 07:00 Pulse 87 01/09/20 07:00 Resp 18 01/09/20 07:00 BP 121/69 01/09/20 09:05 Pulse Ox 95 01/09/20 07:00 Weight - Most Recent: 126 lb 3.2 oz I&O - Last 24 hours: Intake & Output 01/08/20 01/09/20 01/09/20 22:59 06:59 14:59 Intake Total 300 120 Balance 300 120 Lab Results - Last 24 hrs: Laboratory Results - last 24 hr 01/08/20 01/08/20 01/08/20 Range/Units 11:30 16:26 20:57 POC Glucose 137 H 139 H 155 H (74-106) MG/DL 01/09/20 Range/Units 07:37 POC Glucose 94 (74-106) MG/DL Med Orders - Current: Current Medications Acetaminophen (Tylenol) 650 mg PO Q4H PRN PRN Reason: Pain (Mild 1-3)/fever Last Admin: 01/07/20 22:53 Dose: 650 mg Documented by: Aspirin (Ecotrin) 325 mg PO BID [facility] Last Admin: 01/09/20 09:02 Dose: 325 mg Documented by: Bandage/Support Products ( Nasal Energy Conservation Specialist) 1 applic NASBOTH BID [facility] Stop: 01/13/20 21:01 Last Admin: 01/09/20 09:02 Dose: 1 applic Documented by: Dextrose (Glutose 15) 15 gm PO ASDIRECTED PRN PRN Reason: Hypoglycemia Digoxin (Lanoxin) 250 mcg PO DAILY@1300 [facility] Last Admin: 01/08/20 13:13 Dose: 250 mcg Documented by: Docusate Sodium (Colace) 100 mg PO DAILY [facility] Last Admin: 01/09/20 09:05 Dose: Not Given Documented by: Enoxaparin Sodium (Lovenox) 30 mg SUBCUT Q24H [facility] Last Admin: 01/08/20 15:55 Dose: 30 mg Documented by: Insulin Glargine (Lantus Solostar) 22 units SUBCUT BEDTIME [facility] Last Admin: 01/08/20 21:22 Dose: 22 units Documented by: Insulin Human Lispro (Humalog) 0 unit SUBCUT QIDACANDBED [facility]; Protocol Last Admin: 01/09/20 07:50 Dose: Not Given Documented by: Liraglutide (Victoza) 0.6 mg SUBCUT DAILY [facility] Last Admin: 01/09/20 09:02 Dose: 0.6 mg Documented by: Lisinopril 10 mg/ Lisinopril (20 mg) 30 mg PO DAILY [facility] Last Admin: 01/09/20 09:05 Dose: 30 mg Documented by: Magnesium Hydroxide (Milk Of Magnesia) 30 ml PO Q6H PRN PRN Reason: Stool Softener Last Admin: 01/08/20 21:25 Dose: 30 ml Documented by: Nicotine (Habitrol) 21 mg TRDERM DAILY [facility] Last Admin: 01/09/20 09:06 Dose: 21 mg Documented by: Nicotine Polacrilex (Nicorelief) 2 mg CHEW Q1H PRN PRN Reason: Other Oxycodone HCl (Oxycodone) 5 mg PO Q4H PRN PRN Reason: Pain (moderate 4-6) Last Admin: 01/08/20 13:14 Dose: 5 mg Documented by: Polyethylene Glycol (Miralax) 17 gm PO DAILY PRN PRN Reason: Constipation Tramadol HCl (Ultram) 50 mg PO Q6H PRN PRN Reason: Pain (mild 1-3) Discontinued Medications Cefazolin Sodium (Ancef) Confirm Administered Dose 1 gm .ROUTE .[facility] ONE Stop: 01/06/20 16:20 Dextrose/Water (Dextrose 50% In Water) 50 ml IV ASDIRECTED PRN PRN Reason: Hypoglycemia Fentanyl (Sublimaze) Confirm Administered Dose 100 mcg .ROUTE .STK-[facility] ONE Stop: 01/06/20 12:57 Hydromorphone HCl (Dilaudid) 0.5 mg IVPUSH Q2H PRN PRN Reason: Pain (severe 7-10) Last Admin: 01/06/20 22:39 Dose: 0.5 mg Documented by: Sodium Chloride (Normal Saline) 1,000 mls @ 250 mls/hr IV ASDIRECTED [facility] Last Admin: 01/06/20 10:58 Dose: 250 mls/hr Documented by: Sodium Chloride (Normal Saline) 1,000 mls @ 125 mls/hr IV ASDIRECTED [facility] Last Admin: 01/07/20 05:20 Dose: 125 mls/hr Documented by: Sodium Chloride (Normal Saline) Confirm Administered Dose 10 mls @ as directed .ROUTE .[facility] ONE Stop: 01/06/20 16:20 Lactated Ringer's (Ringers, Lactated) Confirm Administered Dose 1,000 mls @ as directed .ROUTE .[facility] ONE Stop: 01/06/20 16:45 Cefazolin Sodium 1 gm/ Sodium (Chloride) 50 mls @ 200 mls/hr IV Q8H [facility] Stop: 01/07/20 16:14 Last Admin: 01/06/20 23:18 Dose: 200 mls/hr Documented by: Cefazolin Sodium/Dextrose 1 gm (/ Premix) 50 mls @ 100 mls/hr IV Q8H [facility] Stop: 01/07/20 16:29 Last Admin: 01/07/20 08:15 Dose: 100 mls/hr Documented by: Lisinopril 10 mg/ Lisinopril (20 mg) 30 mg PO DAILY [facility] Midazolam HCl (Versed 1 Mg/Ml) Confirm Administered Dose [address] ONE Stop: 01/06/20 12:57 Morphine Sulfate (Morphine) 1 mg IVPUSH Q1H PRN PRN Reason: Breakthrough Pain Ondansetron HCl (Zofran) 4 mg IV Q4H PRN PRN Reason: Nausea/Vomiting Povidone Iodine (Betadine 10% Soln) Confirm Administered Dose [address] Stop: 01/06/20 14:12 Last Admin: 01/06/20 17:00 Dose: 1 ml Documented by: Propofol (Diprivan 20 Ml) Confirm Administered Dose [address] ONE Stop: 01/06/20 12:57 Sodium Chloride (Saline Flush) 10 ml FLUSH ASDIRECTED PRN PRN Reason: Keep Vein Open - Exam Quality Assessment: Reports: DVT Prophylaxis General: Reports: Alert, Oriented, Cooperative, Mild Distress Lungs: Reports: Clear to Auscultation, Normal Respiratory Effort, Decreased Breath Sounds Cardiovascular: Reports: Regular Rate, Regular Rhythm, No Murmurs GI/Abdominal Exam: Soft, Non-Tender, No Organomegaly, No Distention Extremities: Other (Right hip pain) *Q Meaningful Use (DIS) - VTE *Q VTE Pharmacological Contraindications *Q: Patient Scheduled Surgery
[2020-01-09] MEDS: oxyCODONE 5 MG Tab PO PRN (12:17)
[2020-01-09] MEDS: Digoxin 125 MCG Tab PO SCH (12:18)
--- NOTE | 2020-01-29 18:44 | OR ---
DATE OF PROCEDURE: 01/06/2020 SURGEON: Clay Rogers MD PREOPERATIVE DIAGNOSIS: Displaced right femoral neck fracture. POSTOPERATIVE DIAGNOSIS: Displaced right femoral neck fracture with mild comminution. PROCEDURE: Hemiarthroplasty, right hip, using Britta M/L Taper stem size 7.5, 43 mm bipolar cup, with a 22 mm +3 femoral head. ANESTHESIA: Spinal with sedation. INDICATIONS: Chelsea is an 84-year-old female who sustained a fall resulting in fracture of her right hip. X-rays revealed a displaced fracture of the femoral neck, which extends down just to the lesser trochanter. Taken to the operating room for a hemiarthroplasty. Risks, benefits, and potential complications were discussed. PROCEDURE IN DETAIL: After adequate anesthesia was obtained, patient was placed in lateral decubitus position and secured with the hip positioner. The right hip and leg were prepped and draped in a sterile fashion. An incision was made over the greater trochanter, carried down through the subcutaneous tissues and hemostasis obtained with electrocautery. Tensor fascia was split in line with its fibers and a Charnley retractor was placed. Short external rotators were taken off the greater trochanter along with the capsule in a single layer. Capsule was divided in a T-fashion. Hip was internally rotated revealing the fracture. The femoral neck was recut with an oscillating saw and a portion of the fracture was removed. The femoral head was then removed and measured. A trial cup size 43 mm was placed with good fit. A box osteotome was used to remove the lateral femoral neck cortex. An awl was placed down the canal, followed by lateralizing reamer. Broaches were then placed sequentially up to a size 7.5. A trial reduction was made with +3 neck length providing excellent stability and mandaeism of limb length. The trials were then removed. A M/L Taper stem was press-fit into position. A 43 mm bipolar cup with a 22 mm head and +3 neck length were then placed onto the trunnion, and this was reduced into the acetabulum. The hip was taken through range of motion, found to be quite stable at full extension and good mandaeism of limb length. This was then irrigated with the pulse lavage followed by dilute Betadine solution and additional pulse lavage. The capsule was closed with #2 Ethibond and short external rotators reattached to greater trochanter with #2 Ethibond. Tensor fascia was closed in a running locking fashion and the skin was closed with 2-0 Vicryl and a running 3-0 Monocryl. Steri-Strips were applied. Sterile dressing was then placed. The patient tolerated procedure well, there were no complications, taken from the operating room in stable condition. Clay Rogers MD /[id number]
== END 2020-01-09 12:40 | DRG 470 ==
LOC: JP.ED 10:00 → JP.MS 11:33
PROVIDERS: ADMIT Hospitalist; ATTEND Specialist
PROC: 0SRR0JA Replacement of Right Hip Joint, Femoral Surface with Synthetic Substitute, Uncemented, Open Approach (ICD-10-PCS; principal; 2020-01-06)
DX: S72.001A Fracture of unspecified part of neck of right femur, initial encounter for closed fracture (principal); E11.9 Type 2 diabetes mellitus without complications; F17.210 Nicotine dependence, cigarettes, uncomplicated; F17.200 Nicotine dependence, unspecified, uncomplicated; I10 Essential (primary) hypertension; Z79.84 Long term (current) use of oral hypoglycemic drugs; Z20.828 Contact with and (suspected) exposure to other viral communicable diseases; W01.0XXA Fall on same level from slipping, tripping and stumbling without subsequent striking against object, initial encounter; Z79.82 Long term (current) use of aspirin; Z79.4 Long term (current) use of insulin; Z79.899 Other long term (current) drug therapy; Z98.49 Cataract extraction status, unspecified eye; W01.10XA Fall on same level from slipping, tripping and stumbling with subsequent striking against unspecified object, initial encounter; Y92.009 Unspecified place in unspecified non-institutional (private) residence as the place of occurrence of the external cause
CPT/HCPCS: 36415; 71045 ×2; 73502 ×2; 80053; 85025; 93005; 99285; J7030; 51702; 73501-26-RT; 73501-RT; 80048; 80162; 81001; 82962; 93010; 97110-GP; 97116-GP; 97161-GP; 97165-GO; 97530-GP; 99221-AI; 99231; 99238; 99284; A9270-GY; C1776; J0690; J1170; J1650; J1815-GY; J2250; J2704; J3010; J7050; J7120; U0002

== ENCOUNTER 2021-01-18 05:41 | Inpatient (IN) | payer MEDICARE ==
[2021-01-18] MEDS ORDERED: Lactated Ringers 1,000 ML IV SCH (06:00)
[2021-01-18] MEDS ORDERED: Nozin Nasal Sanitizer NASBOTH SCH (06:00)
[2021-01-18] MEDS ORDERED: Povidone-Iodine 10% Soln 118.25 ML Bottle ONE (06:45)
[2021-01-18] MEDS ORDERED: Albuterol/Ipratropium 3.0-0.5 MG/3 ML Neb Soln NEB ONE (07:35)
[2021-01-18] MEDS ORDERED: fentaNYL 100 MCG/2 ML SDV ONE (07:50)
[2021-01-18] MEDS ORDERED: Midazolam 1 MG/ML 2 ML SDV ONE (07:50)
[2021-01-18] MEDS ORDERED: Propofol 200 MG/20 ML SDV ONE (07:50)
[2021-01-18] MEDS ORDERED: Lactated Ringers 1,000 ML ONE (08:32)
[2021-01-18] MEDS ORDERED: Magnesium Hydroxide 400 MG/5 ML Susp 30 ML Cup PO PRN (09:28)
[2021-01-18] MEDS ORDERED: Acetaminophen 325 MG Tab PO PRN (09:28)
[2021-01-18] MEDS ORDERED: Ondansetron 4 MG/2 ML SDV IVPUSH PRN (09:28)
[2021-01-18] MEDS ORDERED: Morphine 2 MG/ML SYRINGE IVPUSH PRN (09:28)
[2021-01-18] MEDS: Acetaminophen/HYDROcodone 325-5 MG Tab PO PRN ×3 (10:56→19:37)
[2021-01-18] MEDS: Sodium Chloride 0.9% 1,000 ML IV SCH ×2 (11:24→19:51)
[2021-01-18] MEDS: ceFAZolin 1 GM in Premix Bag 1 BAG IV SCH ×2 (14:44→21:23)
--- NOTE | 2021-01-18 15:28 | CR ---
Knee 1V or 2V Lt CLINICAL HISTORY: Total knee arthroplasty FINDINGS: Patient is status post total knee arthroplasty. Components appear well seated.
[2021-01-18] MEDS ORDERED: Insulin Lispro 100 Unit/ML 3 ML KwikPen SUBCUT SCH (18:00)
[2021-01-18] MEDS ORDERED: Glucagon,Human Recombinant 1 MG Vial IM PRN ×2 (18:01→18:03)
[2021-01-18] MEDS ORDERED: 50% Dextrose in Water 50 ML Syringe IVPUSH PRN ×2 (18:01→18:03)
[2021-01-18] MEDS: Insulin Lispro 100 Unit/ML 3 ML KwikPen SUBCUT SCH ×2 (18:23→21:19)
[2021-01-18] MEDS: metFORMIN 500 MG Tab PO SCH (18:25)
[2021-01-18] MEDS: Nozin Nasal Sanitizer NASBOTH SCH (19:59)
[2021-01-18] MEDS: Docusate Sodium 100 MG Cap PO SCH (19:59)
[2021-01-18] MEDS ORDERED: Insulin Glargine,Human Rec. Analog 100 Units/ML 3 ML Pen SUBCUT SCH (21:00)
[2021-01-18] MEDS: Acetaminophen/oxyCODONE 325-5 MG Tab PO PRN (23:54)
[2021-01-19] MEDS: Sodium Chloride 0.9% 1,000 ML IV SCH (04:34)
[2021-01-19] MEDS: ceFAZolin 1 GM in Premix Bag 1 BAG IV SCH (05:31)
[2021-01-19] MEDS: Acetaminophen/oxyCODONE 325-5 MG Tab PO PRN ×3 (05:34→14:29)
[2021-01-19] MEDS: metFORMIN 500 MG Tab PO SCH ×2 (07:43→17:31)
[2021-01-19] MEDS: Insulin Lispro 100 Unit/ML 3 ML KwikPen SUBCUT SCH ×3 (07:43→21:36)
[2021-01-19] MEDS: Docusate Sodium 100 MG Cap PO SCH ×2 (08:04→21:34)
[2021-01-19] MEDS: Enoxaparin 30 MG/0.3 ML Syringe SUBCUT SCH (08:04)
[2021-01-19] MEDS: Nozin Nasal Sanitizer NASBOTH SCH ×2 (08:04→21:32)
[2021-01-19] MEDS: amLODIPine 5 MG Tab PO SCH (08:05)
[2021-01-19] MEDS: Hydrochlorothiazide 25 MG Tab PO SCH (08:05)
[2021-01-19] MEDS: Liraglutide (rDNA Origin) 0.6 MG/0.1 ML 3 ML Pen SUBCUT SCH (08:06)
--- NOTE | 2021-01-19 08:21 | PCM.SURGPN ---
- General Info Date of Service: 01/19/21 Date of Surgery/Procedure: 01/18/21 POD#: 1 Post-Op Diagnosis: left knee osteoarthritis Admission Diagnosis/Problem: Knee joint operation Functional Status: Reports: Pain Controlled, Incentive Spirometry - Review of Systems General: Denies: Fever, Weakness, Fatigue, Malaise, Chills Pulmonary: Denies: Shortness of Breath Cardiovascular: Denies: Chest Pain Gastrointestinal: Denies: Nausea, Vomiting Musculoskeletal: Reports: Leg Pain (left ), Joint Pain (left knee ), Joint Swelling (left knee ) Neurological: Reports: No Symptoms Psychiatric: Reports: No Symptoms - Patient Data Vitals - Most Recent: Last Vital Signs Temp 99.2 F 01/19/21 07:55 Pulse 71 01/19/21 07:55 Resp 16 01/19/21 07:55 BP 126/71 01/19/21 07:55 Pulse Ox 96 01/19/21 07:55 Weight - Most Recent: 118 lb 11.2 oz I&O - Last 24 Hours: Intake & Output 01/18/21 01/19/21 01/19/21 22:59 06:59 14:59 Intake Total 1396 1523 Output Total 575 465 Balance 821 1058 Lab Results Last 24 Hrs: Laboratory Results - last 24 hr 01/18/21 01/18/21 01/18/21 Range/Units 09:33 13:22 16:23 WBC (4.5-11.0) K/uL RBC (3.30-5.50) M/uL Hgb (12.0-15.0) g/dL Hct (36.0-48.0) % MCV (80-98) fL MCH (27-31) pg MCHC (32-36) % Plt Count (150-400) K/uL POC Glucose 176 H 216 H 291 H (74-106) mg/dL 01/18/21 01/19/21 01/19/21 Range/Units 21:12 06:08 07:23 WBC 9.0 (4.5-11.0) K/uL RBC 3.60 (3.30-5.50) M/uL Hgb 10.7 L D (12.0-15.0) g/dL Hct 31.7 L (36.0-48.0) % MCV 88 (80-98) fL MCH 30 (27-31) pg MCHC 34 (32-36) % Plt Count 208 (150-400) K/uL POC Glucose 235 H 182 H (74-106) mg/dL Med Orders - Current: Current Medications Acetaminophen (Acetaminophen 325 Mg Tab) 650 mg PO Q4H PRN PRN Reason: Pain/Fever Hydrocodone Bitart/Acetaminophen (Acetaminophen/Hydrocodone 325-5 Mg Tab) 1 tab PO Q4H PRN PRN Reason: Pain (mild 1-3) Last Admin: 01/18/21 19:37 Dose: 1 tab Documented by: Amlodipine Besylate (Amlodipine 5 Mg Tab) 2.5 mg PO DAILY [facility] Bandage/Support Products (Nozin Nasal Interim Controller) 1 applic NASBOTH BID [facility] Last Admin: 01/19/21 08:04 Dose: 1 applic Documented by: Dextrose/Water (50% Dextrose In Water 50 Ml Syringe) 50 ml IVPUSH ASDIRECTED PRN PRN Reason: Hypoglycemia Digoxin (Digoxin 125 Mcg Tab) 250 mcg PO DAILY@1300 [facility] Docusate Sodium (Docusate Sodium 100 Mg Cap) 100 mg PO BID [facility] Last Admin: 01/19/21 08:04 Dose: 100 mg Documented by: Enoxaparin Sodium (Enoxaparin 30 Mg/0.3 Ml Syringe) 30 mg SUBCUT DAILY [facility] Last Admin: 01/19/21 08:04 Dose: 30 mg Documented by: Glucagon (Glucagon,Human Recombinant 1 Mg Vial) 1 mg IM ASDIRECTED PRN PRN Reason: Hypoglycemia Hydrochlorothiazide (Hydrochlorothiazide 25 Mg Tab) 25 mg PO DAILY [facility] Sodium Chloride (Normal Saline) 1,000 mls @ 125 mls/hr IV ASDIRECTED [facility] Last Admin: 01/19/21 04:34 Dose: 125 mls/hr Documented by: Insulin Glargine (Insulin Glargine,Human Rec. Analog 100 Units/Ml 3 Ml Pen) 5 units SUBCUT BEDTIME [facility] Last Admin: 01/18/21 21:18 Dose: 5 units Documented by: Insulin Human Lispro (Insulin Lispro 100 Unit/Ml 3 Ml Kwikpen) 0 unit SUBCUT QIDACANDBED [facility]; Protocol Stop: 01/22/21 20:00 Last Admin: 01/19/21 07:43 Dose: 1 units Documented by: Liraglutide (Liraglutide (Rdna Origin) 0.6 Mg/0.1 Ml 3 Ml Pen) 1.2 mg SUBCUT DAILY [facility] Lisinopril 20 mg/ Lisinopril (10 mg) 30 mg PO DAILY [facility] Magnesium Hydroxide (Magnesium Hydroxide 400 Mg/5 Ml Susp 30 Ml Cup) 30 ml PO BID PRN PRN Reason: Constipation Metformin HCl (Metformin 500 Mg Tab) 1,000 mg PO BIDMEALS [facility] Last Admin: 01/19/21 07:43 Dose: 1,000 mg Documented by: Morphine Sulfate (Morphine 2 Mg/Ml Syringe) 1 mg IVPUSH Q1H PRN PRN Reason: Breakthrough Pain Last Admin: 01/18/21 11:32 Dose: 1 mg Documented by: Ondansetron HCl (Ondansetron 4 Mg/2 Ml Sdv) 4 mg IVPUSH Q4H PRN PRN Reason: Nausea/Vomiting Oxycodone/Acetaminophen (Acetaminophen/Oxycodone 325-5 Mg Tab) 1 - 2 tab PO Q4H PRN PRN Reason: Pain Last Admin: 01/19/21 05:34 Dose: 1 tab Documented by: Discontinued Medications Albuterol/Ipratropium (Albuterol/Ipratropium 3.0-0.5 Mg/3 Ml Neb Soln) 3 ml NEB ONETIME ONE Stop: 01/18/21 07:36 Last Admin: 01/18/21 07:43 Dose: 3 ml Documented by: Bandage/Support Products (Nozin Nasal Interim Controller) 1 applic NASBOTH BID [facility] Last Admin: 01/18/21 06:43 Dose: 1 applic Documented by: Dextrose/Water (50% Dextrose In Water 50 Ml Syringe) 50 ml IVPUSH ASDIRECTED PRN PRN Reason: Hypoglycemia Fentanyl (Fentanyl 100 Mcg/2 Ml Sdv) Confirm Administered Dose 100 mcg .ROUTE .STK-MED ONE Stop: 01/18/21 07:51 Glucagon (Glucagon,Human Recombinant 1 Mg Vial) 1 mg IM ASDIRECTED PRN PRN Reason: Hypoglycemia Cefazolin Sodium/Dextrose (Ancef 2 Gm/50 Ml) 50 mls @ 100 mls/hr IV ONETIME ONE Stop: 01/18/21 06:29 Last Admin: 01/18/21 07:50 Dose: 100 mls/hr Documented by: Lactated Ringer's (Ringers, Lactated) 1,000 mls @ 75 mls/hr IV ASDIRECTED [facility] Last Admin: 01/18/21 06:42 Dose: 75 mls/hr Documented by: Lactated Ringer's (Ringers, Lactated) Confirm Administered Dose 1,000 mls @ as directed .ROUTE .STK-MED ONE Stop: 01/18/21 08:33 Cefazolin Sodium/Dextrose 1 gm (/ Premix) 50 mls @ 200 mls/hr IV Q8H [facility] Stop: 01/19/21 06:14 Last Admin: 01/19/21 05:31 Dose: 200 mls/hr Documented by: Insulin Human Lispro (Insulin Lispro 100 Unit/Ml 3 Ml Kwikpen) 1 unit SUBCUT QIDACANDBED [facility]; Protocol Stop: 01/18/21 19:00 Last Admin: 01/19/21 00:30 Dose: Not Given Documented by: Midazolam HCl (Midazolam 1 Mg/Ml 2 Ml Sdv) Confirm Administered Dose 2 mg .ROUTE .STK-MED ONE Stop: 01/18/21 07:51 Non-Formulary Medication (Lisinopril [Lisinopril]) 30 mg PO DAILY [facility] Povidone Iodine (Povidone-Iodine 10% Soln 118.25 Ml Bottle) Confirm Administered Dose 1 ml .ROUTE .STK-MED ONE Stop: 01/18/21 06:46 Last Admin: 01/18/21 08:25 Dose: 30 ml Documented by: Propofol (Propofol 200 Mg/20 Ml Sdv) Confirm Administered Dose 200 mg .ROUTE .STK-MED ONE Stop: 01/18/21 07:51 - Exam Wound/Incisions: Dressing Dry and Intact, No Drainage Quality Assessment: Urine Catheter, DVT Prophylaxis General: Alert, Cooperative, No Acute Distress Extremities: Pedal Edema, Joint Swelling, Leg Pain (left ), Limited Range of Motion (left knee, due to dressing, post-operative swelling and pain ). No: Anderson's Sign Skin: Dry, Intact Neurological: No New Focal Deficit Psy/Mental Status: Alert, Normal Mood Sepsis Event Note - Evaluation Sepsis Screening Result: No Definite Risk - Focused Exam Vital Signs: Vital Signs Temp Pulse Resp BP Pulse Ox 01/19/21 07:55 99.2 F 71 16 126/71 96 01/19/21 03:00 98.3 F 87 16 136/74 94 L 01/18/21 23:17 98.7 F 103 H 16 142/72 H 94 L - Problem List & Annotations (1) Postoperative anemia due to acute blood loss SNOMED Code(s): 30715968051905354 Code(s): D62 - ACUTE POSTHEMORRHAGIC ANEMIA Status: Acute Current Visit: Yes (2) Status post left knee replacement SNOMED Code(s): 3308327549401, 452587647, 8525701395634 Code(s): Z96.652 - PRESENCE OF LEFT ARTIFICIAL KNEE JOINT Status: Acute Current Visit: Yes - Problem List Review Problem List Initiated/Reviewed/Updated: Yes - My Orders Last 24 Hours: Active Orders 24 hr Category Date Time Status Patient Status [ADT] Routine ADT 01/19/21 08:06 Ordered Ambulate [RC] QID Care 01/18/21 09:28 Active Antiembolic Devices [RC] .Routine Care 01/18/21 09:29 Active Head of Bed Elevation [RC] ASDIRECTED Care 01/18/21 09:28 Active May Shower [RC] ASDIRECTED Care 01/18/21 09:28 Active Neurovascular Check [RC] Q4H Care 01/18/21 09:28 Active Notify Provider Vital Signs [RC] ASDIRECTED Care 01/18/21 09:28 Active Oxygen Therapy [RC] .PRN Care 01/18/21 09:28 Active RT Aerosol Therapy [RC] ASDIRECTED Care 01/18/21 07:35 Active Up to Chair [RC] QID Care 01/18/21 09:28 Active VTE/DVT Education [RC] Click to Edit Care 01/18/21 09:29 Active Vital Signs [RC] Q4H Care 01/18/21 09:28 Active Wound Care [RC] Q12H Care 01/18/21 09:28 Active Consult to Case Management/[employer] [CONS] Cons 01/18/21 09:28 Active Routine OT Evaluation and Treatment [CONS] Routine Cons 01/18/21 09:28 Active PT Evaluation and Treatment [CONS] Routine Cons 01/18/21 09:28 Active PT Evaluation and Treatment [CONS] Routine Cons 01/18/21 09:28 Active Consistent Carbohydrate Diet [DIET] Diet 01/18/21 Lunch Active GLUCOSE POC LAB TO COLLECT JPM [POC] QIDACANDBED Lab 01/19/21 11:30 Ordered GLUCOSE POC LAB TO COLLECT JPM [POC] QIDACANDBED Lab 01/19/21 16:30 Ordered GLUCOSE POC LAB TO COLLECT JPM [POC] QIDACANDBED Lab 01/19/21 21:00 Ordered GLUCOSE POC LAB TO COLLECT JPM [POC] QIDACANDBED Lab 01/20/21 07:30 Ordered GLUCOSE POC LAB TO COLLECT JPM [POC] QIDACANDBED Lab 01/20/21 11:30 Ordered GLUCOSE POC LAB TO COLLECT JPM [POC] QIDACANDBED Lab 01/20/21 16:30 Ordered GLUCOSE POC LAB TO COLLECT JPM [POC] QIDACANDBED Lab 01/20/21 21:00 Ordered GLUCOSE POC LAB TO COLLECT JPM [POC] QIDACANDBED Lab 01/21/21 07:30 Ordered GLUCOSE POC LAB TO COLLECT JPM [POC] QIDACANDBED Lab 01/21/21 11:30 Ordered GLUCOSE POC LAB TO COLLECT JPM [POC] QIDACANDBED Lab 01/21/21 16:30 Ordered GLUCOSE POC LAB TO COLLECT JPM [POC] QIDACANDBED Lab 01/21/21 21:00 Ordered GLUCOSE POC LAB TO COLLECT JPM [POC] QIDACANDBED Lab 01/22/21 07:30 Ordered GLUCOSE POC LAB TO COLLECT JPM [POC] QIDACANDBED Lab 01/22/21 11:30 Ordered Acetaminophen [TylenoL] Med 01/18/21 09:28 Active 650 mg PO Q4H PRN Acetaminophen/HYDROcodone [[place] 325-5 MG] Med 01/18/21 09:28 Active 1 tab PO Q4H PRN Acetaminophen/oxyCODONE [Percocet 325-5 MG] Med 01/18/21 09:28 Active 1 - 2 tab PO Q4H PRN Dextrose 50% in Water Med 01/18/21 18:03 Active 50 ml IVPUSH ASDIRECTED PRN Digoxin [Lanoxin] Med 01/19/21 13:00 Active 250 mcg PO DAILY@1300 Docusate Sodium [Colace] Med 01/18/21 21:00 Active 100 mg PO BID Enoxaparin [Lovenox] Med 01/19/21 09:00 Active 30 mg SUBCUT DAILY Glucagon,Human Recombinant [GlucaGen] Med 01/18/21 18:03 Active 1 mg IM ASDIRECTED PRN Insulin Glarg,Human.Rec.Analog [LantUS Solostar] Med 01/18/21 21:00 Active 5 units SUBCUT BEDTIME Insulin Lispro [HumaLOG] Med 01/18/21 20:00 Active See Dose Instructions SUBCUT QIDACANDBED Liraglutide [Victoza] Med 01/19/21 09:00 Active 1.2 mg SUBCUT DAILY Lisinopril [Prinivil] Med 01/19/21 09:00 Active 30 mg PO DAILY Magnesium Hydroxide [Milk of Magnesia] Med 01/18/21 09:28 Active 30 ml PO BID PRN Morphine Med 01/18/21 09:28 Active 1 mg IVPUSH Q1H PRN Nozin [ Nasal Interim Controller] Med 01/18/21 21:00 Active 1 applic NASBOTH BID Ondansetron [Zofran] Med 01/18/21 09:28 Active 4 mg IVPUSH Q4H PRN Sodium Chloride 0.9% [Normal Saline] 1,000 ml Med 01/18/21 09:30 Active IV ASDIRECTED amLODIPine [Norvasc] Med 01/19/21 09:00 Active 2.5 mg PO DAILY hydroCHLOROthiazide Med 01/19/21 09:00 Active 25 mg PO DAILY metFORMIN [Glucophage] Med 01/18/21 17:00 Active 1,000 mg PO BIDMEALS Antiembolic Hose [OM.PC] Routine Oth 01/18/21 09:28 Ordered DVT/VTE Prophylaxis Reflex [OM.PC] Routine Oth 01/18/21 09:28 Ordered Ice Therapy [OM.PC] Per Unit Routine Oth 01/18/21 09:28 Ordered Medication Continuation Instructions [OM.PC] Per Unit Oth 01/18/21 09:28 Ordered Routine Oral Care [OM.PC] Routine Oth 01/18/21 09:28 Ordered Sequential Compression Device [OM.PC] Routine Oth 01/18/21 09:28 Ordered ROBERT Hose [Antiembolic Hose] [OM.PC] Routine Oth 01/18/21 08:00 Ordered Weight bearing status [OM.PC] Routine Oth 01/18/21 09:36 Ordered Resuscitation Status Routine Resus Stat 01/18/21 09:28 Ordered Medication Orders Acetaminophen (Acetaminophen 325 Mg Tab) 650 mg PO Q4H PRN PRN Reason: Pain/Fever Hydrocodone Bitart/Acetaminophen (Acetaminophen/Hydrocodone 325-5 Mg Tab) 1 tab PO Q4H PRN PRN Reason: Pain (mild 1-3) Last Admin: 01/18/21 19:37 Dose: 1 tab Documented by: Admin: 01/18/21 14:47 Dose: 1 tab Documented by: Admin: 01/18/21 10:56 Dose: 1 tab Documented by: CHIP Amlodipine Besylate (Amlodipine 5 Mg Tab) 2.5 mg PO DAILY [facility] Bandage/Support Products (Nozin Nasal Interim Controller) 1 applic NASBOTH BID [facility] Last Admin: 01/19/21 08:04 Dose: 1 applic Documented by: Admin: 01/18/21 19:59 Dose: 1 applic Documented by: ABIOLA Dextrose/Water (50% Dextrose In Water 50 Ml Syringe) 50 ml IVPUSH ASDIRECTED PRN PRN Reason: Hypoglycemia Digoxin (Digoxin 125 Mcg Tab) 250 mcg PO DAILY@1300 [facility] Docusate Sodium (Docusate Sodium 100 Mg Cap) 100 mg PO BID [facility] Last Admin: 01/19/21 08:04 Dose: 100 mg Documented by: Admin: 01/18/21 19:59 Dose: 100 mg Documented by: ABIOLA Enoxaparin Sodium (Enoxaparin 30 Mg/0.3 Ml Syringe) 30 mg SUBCUT DAILY [facility] Last Admin: 01/19/21 08:04 Dose: 30 mg Documented by: MATT Glucagon (Glucagon,Human Recombinant 1 Mg Vial) 1 mg IM ASDIRECTED PRN PRN Reason: Hypoglycemia Hydrochlorothiazide (Hydrochlorothiazide 25 Mg Tab) 25 mg PO DAILY [facility] Sodium Chloride (Normal Saline) 1,000 mls @ 125 mls/hr IV ASDIRECTED [facility] Last Admin: 01/19/21 04:34 Dose: 125 mls/hr Documented by: Infusion: 01/19/21 03:51 Dose: 125 mls/hr Documented by: Admin: 01/18/21 19:51 Dose: 125 mls/hr Documented by: Infusion: 01/18/21 19:24 Dose: 125 mls/hr Documented by: Admin: 01/18/21 11:24 Dose: 125 mls/hr Documented by: CHIP Insulin Glargine (Insulin Glargine,Human Rec. Analog 100 Units/Ml 3 Ml Pen) 5 units SUBCUT BEDTIME [facility] Last Admin: 01/18/21 21:18 Dose: 5 units Documented by: ABIOLA Cosigned by: RUSSELL Insulin Human Lispro (Insulin Lispro 100 Unit/Ml 3 Ml Kwikpen) 0 unit SUBCUT QIDACANDBED [facility]; Protocol Stop: 01/22/21 20:00 Last Admin: 01/19/21 07:43 Dose: 1 units Documented by: MATT Cosigned by: ENRIKE Admin: 01/18/21 21:19 Dose: 2 units Documented by: ABIOLA Cosigned by: RUSSELL Admin: 01/18/21 18:23 Dose: 3 units Documented by: CHIP Cosigned by: WINTEROMATaylor Liraglutide (Liraglutide (Rdna Origin) 0.6 Mg/0.1 Ml 3 Ml Pen) 1.2 mg SUBCUT DAILY [facility] Lisinopril 20 mg/ Lisinopril (10 mg) 30 mg PO DAILY [facility] Magnesium Hydroxide (Magnesium Hydroxide 400 Mg/5 Ml Susp 30 Ml Cup) 30 ml PO BID PRN PRN Reason: Constipation Metformin HCl (Metformin 500 Mg Tab) 1,000 mg PO BIDMEALS [facility] Last Admin: 01/19/21 07:43 Dose: 1,000 mg Documented by: Admin: 01/18/21 18:25 Dose: 1,000 mg Documented by: CHIP Morphine Sulfate (Morphine 2 Mg/Ml Syringe) 1 mg IVPUSH Q1H PRN PRN Reason: Breakthrough Pain Last Admin: 01/18/21 11:32 Dose: 1 mg Documented by: CHIP Ondansetron HCl (Ondansetron 4 Mg/2 Ml Sdv) 4 mg IVPUSH Q4H PRN PRN Reason: Nausea/Vomiting Oxycodone/Acetaminophen (Acetaminophen/Oxycodone 325-5 Mg Tab) 1 - 2 tab PO Q4H PRN PRN Reason: Pain Last Admin: 01/19/21 05:34 Dose: 1 tab Documented by: Admin: 01/18/21 23:54 Dose: 1 tab Documented by: ABIOLA - Assessment Assessment (Free Text/Narrative):: Patient is a pleasant 85-year-old female, status post left total knee arthroplasty, postop day #1. Patient tolerated surgery well with no complications. No acute events overnight. Vitals within acceptable limits. Postoperative day #1 hemoglobin declined to 10.7. Patient asymptomatic with this; denied dizziness, lightheadedness, dyspnea. Patient also denied subjective fevers, chills, chest pain, nor fatigue. Endorsed pain in left knee when moving in bed and with therapy yesterday. Pain has been adequately controlled thus far on Percocet with IV morphine for breakthrough pain. Patient denied numbness or tingling to left lower extremity. Patient tolerating consistent carbohydrate diet well; denied nausea or emesis at this time. Is unsure what her blood sugars run at home. Patient's blood sugars have been elevated >200 throughout hospital stay. QID glucose checks have been ordered. Due to elevated blood sugar at 291 yesterday evening, low sliding insulin scale ordered to address elevated blood sugars. Resumed home diabetes medication regimen this morning. Decreased urine output and pre-operative labs (elevated creatinine, BUN, and decreased GFR) are concerning of kidney injury. Patient participated in physical therapy following surgery yesterday afternoon and ambulated 2 feet, transferred from bed to chair with four-wheel walker and x1 moderate assist. Patient requires inpatient status at this time for additional physical therapy services to progress ambulation abilities and strengthening of left lower extremity for a safe discharge home. Additionally, there is concern with elevated blood glucose levels and kidney function, so a hospitalist consult will be placed for medical management. Exam: Left lower extremity dressing dry and intact. Postoperative swelling of left lower extremity. Left tibialis posterior appreciated, 2+. Sensation to left lower extremity intact. Dorsiflexion 3/5, Plantar flexion 4/5. Limited range of motion of the left knee joint due to dressing, postoperative swelling, pain. Plan: * Patient to participate in physical and occupational therapy daily while in the hospital. * Continue with current pain regimen. * Postoperative anemia stable at this time; continue to monitor for orthostatic hypotension, dizziness, lightheadedness, dyspnea. If patient becomes symptomatic can recheck a CBC. * Consult placed to hospitalist regarding elevated blood glucose and concern of kidney injury. * Holding sliding scale insulin and resuming home diabetes medication regimen; 5 mg Lantus qd + 1.2 mg Victoza qd. * 30 mg Lovenox subcutaneous daily for chemical DVT/VTE prophylaxis, bilateral lower extremity SCDs for mechanical DVT/VTE prophylaxis. * Byers may be discontinued this afternoon, pending progress with physical therapy on ambulation abilities. * Anticipate discharge to daughter's home when medically stable and ambulation abilities improve. Daughter is requesting home health services at time of discharge.
[2021-01-19] MEDS ORDERED: Glucose Gel 15 GM in 37.5 GM Tube PO PRN (12:06)
--- NOTE | 2021-01-19 12:10 | PCM.CONS ---
H&P History of Present Illness - General Date of Service: 01/19/21 Admit Problem/Dx: Admission Diagnosis/Problem Admission Diagnosis/Problem Knee joint operation Admission Diagnosis/Problem Knee joint operation Source of Information: Patient, Provider, RN Notes Reviewed History Limitations: Reports: No Limitations - History of Present Illness Initial Comments - Free Text/Narative: Ms. Ng is an 86-year-old woman who I been asked to see by Dr. Rogers for assistance with medical management of type 2 diabetes mellitus and chronic kidney disease. She is status post total left knee arthroplasty done yesterday by Dr. Rogers. Blood sugars have been elevated during the postoperative period. At baseline she does have underlying chronic kidney disease stage IIIa. Urine output has been somewhat lower since surgery. She otherwise reports that she is feeling well other than pain in her left knee. - Related Data Allergies/Adverse Reactions: Allergies Allergy/AdvReac Type Severity Reaction Status Date / Time Tzvztyg-Ahz-Yqs Reductase AdvReac Muscle Verified 01/18/21 06:17 Inhibitor Aches Home Medications: Home Meds Digoxin 0.25 mg PO DAILY 11/13/17 [History] metFORMIN [Glucophage] 1,000 mg PO BIDMEALS 11/13/17 [History] Aspirin [Angelique Chewable Aspirin] 81 mg PO DAILY 01/06/20 [History] Insulin Detemir [Levemir Flextouch] 5 units SUBCUT BEDTIME 01/06/20 [History] Liraglutide [Victoza] 1.2 mg SUBCUT DAILY 01/06/20 [History] lisinopriL [Lisinopril] 30 mg PO DAILY 01/06/20 [History] amLODIPine [Norvasc] 2.5 mg PO DAILY 01/12/21 [History] hydroCHLOROthiazide [Hydrochlorothiazide] 25 mg PO DAILY 01/12/21 [History] Past Medical History HEENT History: Reports: Cataract, Impaired Vision Cardiovascular History: Reports: Arrhythmia, Hypertension Gastrointestinal History: Reports: Cholelithiasis, Chronic Diarrhea, Diverticulosis Genitourinary History: Reports: UTI, Recurrent 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/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: Reports: Musculoskeletal History: Reports: Arthritis, Fracture, Other (See Below) Other Musculoskeletal History: left knee pain Neurological History: Reports: TIA, Other (See Below) Other Neuro History: 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 Endocrine/Metabolic History: Reports: Diabetes, Type II - Past Surgical History Head Surgeries/Procedures: Reports: None HEENT Surgical History: Reports: Cataract Surgery GI Surgical History: Reports: Cholecystectomy, Colon, Colonoscopy Female Surgical History: Reports: Breast Biopsy Musculoskeletal Surgical History: Reports: Knee Replacement, Other (See Below) Other Musculoskeletal Surgeries/Procedures:: ORIF rt hip 01/06/20; L TKA 01/18/2021 Social & Family History - Tobacco Use Tobacco Use Status *Q: Current Every Day Tobacco User Years of Tobacco use: 70 Packs/Tins Daily: 2 - Caffeine Use Caffeine Use: Reports: Coffee - Recreational Drug Use Recreational Drug Use: No H&P Review of Systems - Review of Systems: Review Of Systems: See Below General: Reports: No Symptoms Pulmonary: Reports: No Symptoms Cardiovascular: Reports: No Symptoms Gastrointestinal: Reports: No Symptoms Genitourinary: Reports: No Symptoms Musculoskeletal: Reports: Other (Left knee pain) Skin: Reports: No Symptoms Exam - Exam Exam: See Below - Vital Signs Vital Signs: Last Vital Signs Temp 97.9 F 01/19/21 11:15 Pulse 95 01/19/21 11:15 Resp 16 01/19/21 11:15 BP 139/59 L 01/19/21 11:15 Pulse Ox 98 01/19/21 11:15 Weight: 118 lb 11.2 oz - Exam Quality Assessment: DVT Prophylaxis General: Alert, Oriented, Cooperative, Moderate Distress Neck: Supple, Trachea Midline, +2 Carotid Pulse wo Bruit Lungs: Clear to Auscultation, Normal Respiratory Effort Cardiovascular: Regular Rate, Regular Rhythm, Normal S1, Normal S2. No: Systolic Murmur, Diastolic Murmur GI/Abdominal Exam: Soft, Non-Tender, No Organomegaly, No Distention Extremities: Other (Dressing in place left knee) Skin: Warm, Dry - Patient Data Lab Results Last 24 hrs: Laboratory Results - last 24 hr 01/18/21 01/18/21 01/18/21 Range/Units 13:22 16:23 21:12 WBC (4.5-11.0) K/uL RBC (3.30-5.50) M/uL Hgb (12.0-15.0) g/dL Hct (36.0-48.0) % MCV (80-98) fL MCH (27-31) pg MCHC (32-36) % Plt Count (150-400) K/uL Sodium (140-148) mmol/L Potassium (3.6-5.2) mmol/L Chloride (100-108) mmol/L Carbon Dioxide (21-32) mmol/L Anion Gap (5.0-14.0) mmol/L BUN (7-18) mg/dL Creatinine (0.6-1.0) mg/dL Est Cr Clr Drug Dosing mL/min Estimated GFR (MDRD) (>60) Glucose (74-106) mg/dL POC Glucose 216 H 291 H 235 H (74-106) mg/dL Calcium (8.5-10.1) mg/dL 01/19/21 01/19/21 01/19/21 Range/Units 06:08 07:23 11:20 WBC 9.0 (4.5-11.0) K/uL RBC 3.60 (3.30-5.50) M/uL Hgb 10.7 L D (12.0-15.0) g/dL Hct 31.7 L (36.0-48.0) % MCV 88 (80-98) fL MCH 30 (27-31) pg MCHC 34 (32-36) % Plt Count 208 (150-400) K/uL Sodium 138 L (140-148) mmol/L Potassium 3.8 (3.6-5.2) mmol/L Chloride 101 (100-108) mmol/L Carbon Dioxide 28 (21-32) mmol/L Anion Gap 12.8 (5.0-14.0) mmol/L BUN 12 D (7-18) mg/dL Creatinine 0.7 (0.6-1.0) mg/dL Est Cr Clr Drug Dosing 49.49 mL/min Estimated GFR (MDRD) > 60 (>60) Glucose 182 H (74-106) mg/dL POC Glucose 182 H (74-106) mg/dL Calcium 8.1 L D (8.5-10.1) mg/dL 01/19/21 Range/Units 11:20 WBC (4.5-11.0) K/uL RBC (3.30-5.50) M/uL Hgb (12.0-15.0) g/dL Hct (36.0-48.0) % MCV (80-98) fL MCH (27-31) pg MCHC (32-36) % Plt Count (150-400) K/uL Sodium (140-148) mmol/L Potassium (3.6-5.2) mmol/L Chloride (100-108) mmol/L Carbon Dioxide (21-32) mmol/L Anion Gap (5.0-14.0) mmol/L BUN (7-18) mg/dL Creatinine (0.6-1.0) mg/dL Est Cr Clr Drug Dosing mL/min Estimated GFR (MDRD) (>60) Glucose (74-106) mg/dL POC Glucose 246 H (74-106) mg/dL Calcium (8.5-10.1) mg/dL Result Diagrams: 01/19/21 06:08 01/19/21 11:20 Sepsis Event Note - Evaluation Sepsis Screening Result: No Definite Risk - Focused Exam Vital Signs: Vital Signs Temp Pulse Resp BP BP Pulse Ox 01/19/21 11:15 97.9 F 95 16 139/59 L 98 01/19/21 08:05 126/71 01/19/21 07:55 99.2 F 71 16 126/71 96 01/19/21 03:00 98.3 F 87 16 136/74 94 L Consult PN Assessment/Plan Procedures: Procedures ASSAY OF DIGOXIN TOTAL (01/06/20) ASSAY OF TROPONIN QUANT (11/13/17) COMPLETE CBC AUTOMATED (11/13/17) COMPLETE CBC W/AUTO DIFF WBC (01/06/20) COMPREHEN METABOLIC PANEL (01/06/20) CT HEAD/BRAIN W/O DYE (11/13/17) DRAIN/INJ JOINT/BURSA W/O US (10/20/20) ECG MONIT/REPRT UP TO 48 HRS (11/15/17) ECG MONIT/REPRT UP TO 48 HRS (11/15/17) ELECTROCARDIOGRAM TRACING (01/06/20) EMERGENCY DEPT VISIT (01/06/20) EMERGENCY DEPT VISIT (11/13/17) EXTRACRANIAL BILAT STUDY (11/15/17) GAIT TRAINING THERAPY (01/06/20) GLUCOSE BLOOD TEST (01/06/20) INSERT TEMP BLADDER CATH (01/06/20) METABOLIC PANEL TOTAL CA (01/06/20) OFFICE O/P EST LOW 20-29 MIN (10/20/20) OT EVAL LOW COMPLEX 30 MIN (01/06/20) POSTOP FOLLOW-UP VISIT (01/21/20) PT EVAL LOW COMPLEX 20 MIN (01/06/20) PT EVALUATION (01/12/15) ROUTINE VENIPUNCTURE (01/06/20) THERAPEUTIC ACTIVITIES (01/06/20) THERAPEUTIC EXERCISES (01/06/20) TTE W/DOPPLER COMPLETE (07/16/15) URINALYSIS AUTO W/SCOPE (01/06/20) URINE CULTURE/COLONY COUNT (11/13/17) X-RAY EXAM CHEST 1 VIEW (01/06/20) X-RAY EXAM HIP UNI 1 VIEW (02/11/20) X-RAY EXAM HIP UNI 2-3 VIEWS (01/06/20) X-RAY EXAM OF KNEE 3 (10/20/20) X-RAY EXAM OF KNEES (10/20/20) Problem List Initiated/Reviewed/Updated: Yes My Orders Last 24 Hours: My Active Orders 01/19/21 12:06 Communication Order [RC] STAT Diabetes Education [RC] Click to Edit Notify Provider [RC] PRN Dextrose [Glutose 15] 15 gm PO ONETIME PRN 01/19/21 17:00 Insulin Lispro [HumaLOG] See Protocol SUBCUT QIDACANDBED 01/19/21 21:00 Insulin Glarg,Human.Rec.Analog [LantUS Solostar] 10 units SUBCUT BEDTIME Plan: ASSESSMENT AND RECOMMENDATIONS STATUS POST LEFT TOTAL KNEE ARTHROPLASTY -Postoperative care per orthopedic service TYPE 2 DIABETES MELLITUS-glucose levels have been elevated during the postoperative period -Continue Victoza and Metformin -Increase Lantus insulin to 10 units at bedtime -Add low-dose sliding scale Humalog -4 times daily glucometers CHRONIC KIDNEY DISEASE STAGE IIIa-urine output has been somewhat low during the postoperative period, likely secondary to third spacing -Continue current IV fluids -Closely monitor renal function and urine output Requesting Provider: ECHOMETER ENGINEER Date Consult Requested: 01/19/21 Reason for Consult: Postoperative management of diabetes and chronic kidney disease Patient History Reviewed: Yes
[2021-01-19] MEDS: Digoxin 125 MCG Tab PO SCH (12:29)
[2021-01-19] MEDS: Insulin Glargine,Human Rec. Analog 100 Units/ML 3 ML Pen SUBCUT SCH (21:34)
[2021-01-20] MEDS: Acetaminophen/oxyCODONE 325-5 MG Tab PO PRN ×3 (03:42→18:10)
[2021-01-20] MEDS: Calcium Carbonate 500 MG Tab.Chew PO PRN (04:11)
[2021-01-20] MEDS: metFORMIN 500 MG Tab PO SCH ×2 (08:03→17:23)
[2021-01-20] MEDS: amLODIPine 5 MG Tab PO SCH (08:04)
[2021-01-20] MEDS: Docusate Sodium 100 MG Cap PO SCH ×2 (08:04→21:20)
[2021-01-20] MEDS: Hydrochlorothiazide 25 MG Tab PO SCH (08:05)
[2021-01-20] MEDS: Enoxaparin 30 MG/0.3 ML Syringe SUBCUT SCH (08:05)
[2021-01-20] MEDS: Nozin Nasal Sanitizer NASBOTH SCH ×2 (08:07→21:21)
[2021-01-20] MEDS: Insulin Lispro 100 Unit/ML 3 ML KwikPen SUBCUT SCH ×4 (08:07→21:21)
[2021-01-20] MEDS: Liraglutide (rDNA Origin) 0.6 MG/0.1 ML 3 ML Pen SUBCUT SCH (08:10)
--- NOTE | 2021-01-20 13:12 | PCM.SURGPN ---
- General Info Date of Service: 01/20/21 Date of Surgery/Procedure: 01/18/21 POD#: 2 Post-Op Diagnosis: left knee osteoarthritis Admission Diagnosis/Problem: Knee joint operation Functional Status: Reports: Pain Controlled (at rest, increased with ambulation ) - Review of Systems General: Reports: Fatigue. Denies: Fever, Weakness, Malaise, Chills Gastrointestinal: Reports: Decreased Appetite Musculoskeletal: Reports: Leg Pain (left ), Joint Pain (left knee ), Joint Swelling (left knee ) Skin: Reports: Bruising (left thigh, knee ) Neurological: Reports: No Symptoms - Patient Data Vitals - Most Recent: Last Vital Signs Temp 97.7 F 01/20/21 11:46 Pulse 92 01/20/21 11:46 Resp 16 01/20/21 11:46 BP 117/54 L 01/20/21 11:46 Pulse Ox 99 01/20/21 11:46 Weight - Most Recent: 118 lb 11.185 oz I&O - Last 24 Hours: Intake & Output 01/19/21 01/20/21 01/20/21 22:59 06:59 14:59 Intake Total 800 240 Output Total 1540 275 Balance -740 -35 Lab Results Last 24 Hrs: Laboratory Results - last 24 hr 01/19/21 01/19/21 01/20/21 Range/Units 16:32 21:17 07:39 POC Glucose 213 H 126 H 124 H (74-106) mg/dL 01/20/21 Range/Units 11:23 POC Glucose 196 H (74-106) mg/dL Med Orders - Current: Current Medications Acetaminophen (Acetaminophen 325 Mg Tab) 650 mg PO Q4H PRN PRN Reason: Pain/Fever Hydrocodone Bitart/Acetaminophen (Acetaminophen/Hydrocodone 325-5 Mg Tab) 1 tab PO Q4H PRN PRN Reason: Pain (mild 1-3) Last Admin: 01/18/21 19:37 Dose: 1 tab Documented by: Amlodipine Besylate (Amlodipine 5 Mg Tab) 2.5 mg PO DAILY [facility] Last Admin: 01/20/21 08:04 Dose: 2.5 mg Documented by: Bandage/Support Products (Nozin Nasal Take Out Waiter) 1 applic NASBOTH BID [facility] Last Admin: 01/20/21 08:07 Dose: 1 applic Documented by: Calcium Carbonate/Glycine (Calcium Carbonate 500 Mg Tab.Chew) 1,000 mg PO Q2H PRN PRN Reason: Indigestion Last Admin: 01/20/21 04:11 Dose: 1,000 mg Documented by: Dextrose (Glucose Gel 15 Gm In 37.5 Gm Tube) 15 gm PO ONETIME PRN PRN Reason: Hypoglycemia Dextrose/Water (50% Dextrose In Water 50 Ml Syringe) 50 ml IVPUSH ASDIRECTED PRN PRN Reason: Hypoglycemia Digoxin (Digoxin 125 Mcg Tab) 250 mcg PO DAILY@1300 [facility] Last Admin: 01/19/21 12:29 Dose: 250 mcg Documented by: Docusate Sodium (Docusate Sodium 100 Mg Cap) 100 mg PO BID [facility] Last Admin: 01/20/21 08:04 Dose: 100 mg Documented by: Enoxaparin Sodium (Enoxaparin 30 Mg/0.3 Ml Syringe) 30 mg SUBCUT DAILY [facility] Last Admin: 01/20/21 08:05 Dose: 30 mg Documented by: Glucagon (Glucagon,Human Recombinant 1 Mg Vial) 1 mg IM ASDIRECTED PRN PRN Reason: Hypoglycemia Hydrochlorothiazide (Hydrochlorothiazide 25 Mg Tab) 25 mg PO DAILY [facility] Last Admin: 01/20/21 08:05 Dose: 25 mg Documented by: Sodium Chloride (Normal Saline) 1,000 mls @ 125 mls/hr IV ASDIRECTED [facility] Last Admin: 01/19/21 04:34 Dose: 125 mls/hr Documented by: Insulin Glargine (Insulin Glargine,Human Rec. Analog 100 Units/Ml 3 Ml Pen) 10 units SUBCUT BEDTIME [facility] Last Admin: 01/19/21 21:34 Dose: 10 units Documented by: Insulin Human Lispro (Insulin Lispro 100 Unit/Ml 3 Ml Kwikpen) 0 unit SUBCUT QIDACANDBED [facility]; Protocol Last Admin: 01/20/21 08:07 Dose: Not Given Documented by: Liraglutide (Liraglutide (Rdna Origin) 0.6 Mg/0.1 Ml 3 Ml Pen) 1.2 mg SUBCUT DAILY [facility] Last Admin: 01/20/21 08:10 Dose: 1.2 unit Documented by: Lisinopril 20 mg/ Lisinopril (10 mg) 30 mg PO DAILY [facility] Last Admin: 01/20/21 08:04 Dose: 30 mg Documented by: Magnesium Hydroxide (Magnesium Hydroxide 400 Mg/5 Ml Susp 30 Ml Cup) 30 ml PO BID PRN PRN Reason: Constipation Metformin HCl (Metformin 500 Mg Tab) [facility] Last Admin: 01/20/21 08:03 Dose: 1,000 mg Documented by: Morphine Sulfate (Morphine 2 Mg/Ml Syringe) 1 mg IVPUSH Q1H PRN PRN Reason: Breakthrough Pain Last Admin: 01/18/21 11:32 Dose: 1 mg Documented by: Ondansetron HCl (Ondansetron 4 Mg/2 Ml Sdv) 4 mg IVPUSH Q4H PRN PRN Reason: Nausea/Vomiting Oxycodone/Acetaminophen (Acetaminophen/Oxycodone 325-5 Mg Tab) 1 - 2 tab PO Q4H PRN PRN Reason: Pain Last Admin: 01/20/21 09:49 Dose: 1 tab Documented by: Discontinued Medications Albuterol/Ipratropium (Albuterol/Ipratropium 3.0-0.5 Mg/3 Ml Neb Soln) 3 ml NEB ONETIME ONE Stop: 01/18/21 07:36 Last Admin: 01/18/21 07:43 Dose: 3 ml Documented by: Bandage/Support Products (Nozin Nasal Take Out Waiter) 1 applic NASBOTH BID [facility] Last Admin: 01/18/21 06:43 Dose: 1 applic Documented by: Dextrose/Water (50% Dextrose In Water 50 Ml Syringe) 50 ml IVPUSH ASDIRECTED PRN PRN Reason: Hypoglycemia Fentanyl (Fentanyl 100 Mcg/2 Ml Sdv) Confirm Administered Dose 100 mcg .ROUTE .STK-MED ONE Stop: 01/18/21 07:51 Glucagon (Glucagon,Human Recombinant 1 Mg Vial) 1 mg IM ASDIRECTED PRN PRN Reason: Hypoglycemia Cefazolin Sodium/Dextrose (Ancef 2 Gm/50 Ml) 50 mls @ 100 mls/hr IV ONETIME ONE Stop: 01/18/21 06:29 Last Admin: 01/18/21 07:50 Dose: 100 mls/hr Documented by: Lactated Ringer's (Ringers, Lactated) 1,000 mls @ 75 mls/hr IV ASDIRECTED [facility] Last Admin: 01/18/21 06:42 Dose: 75 mls/hr Documented by: Lactated Ringer's (Ringers, Lactated) Confirm Administered Dose 1,000 mls @ as directed .ROUTE .STK-MED ONE Stop: 01/18/21 08:33 Cefazolin Sodium/Dextrose 1 gm (/ Premix) 50 mls @ 200 mls/hr IV Q8H [facility] Stop: 01/19/21 06:14 Last Admin: 01/19/21 05:31 Dose: 200 mls/hr Documented by: Insulin Glargine (Insulin Glargine,Human Rec. Analog 100 Units/Ml 3 Ml Pen) 5 units SUBCUT BEDTIME [facility] Last Admin: 01/18/21 21:18 Dose: 5 units Documented by: Insulin Human Lispro (Insulin Lispro 100 Unit/Ml 3 Ml Kwikpen) 1 unit SUBCUT QIDACANDBED [facility]; Protocol Stop: 01/18/21 19:00 Last Admin: 01/19/21 00:30 Dose: Not Given Documented by: Insulin Human Lispro (Insulin Lispro 100 Unit/Ml 3 Ml Kwikpen) 0 unit SUBCUT QIDACANDBED [facility]; Protocol Stop: 01/22/21 20:00 Last Admin: 01/19/21 07:43 Dose: 1 units Documented by: Midazolam HCl (Midazolam 1 Mg/Ml 2 Ml Sdv) Confirm Administered Dose 2 mg .ROUTE .STK-MED ONE Stop: 01/18/21 07:51 Non-Formulary Medication (Lisinopril [Lisinopril]) 30 mg PO DAILY [facility] Povidone Iodine (Povidone-Iodine 10% Soln 118.25 Ml Bottle) Confirm Administered Dose 1 ml .ROUTE .STK-MED ONE Stop: 01/18/21 06:46 Last Admin: 01/18/21 08:25 Dose: 30 ml Documented by: Propofol (Propofol 200 Mg/20 Ml Sdv) Confirm Administered Dose 200 mg .ROUTE .STK-MED ONE Stop: 01/18/21 07:51 - Exam Wound/Incisions: Healing Well, Dressing Dry and Intact, No Drainage Quality Assessment: Urine Catheter, DVT Prophylaxis General: Alert, Oriented, Cooperative, No Acute Distress Extremities: Pedal Edema, Joint Swelling (left knee ), Leg Pain (left ), Limited Range of Motion Skin: Dry, Intact Neurological: No New Focal Deficit Psy/Mental Status: Alert, Normal Affect, Normal Mood Sepsis Event Note - Evaluation Sepsis Screening Result: No Definite Risk - Focused Exam Vital Signs: Vital Signs Temp Pulse Resp BP BP Pulse Ox 01/20/21 11:46 97.7 F 92 16 117/54 L 99 01/20/21 08:04 128/60 01/20/21 07:37 97.8 F 98 16 128/60 97 01/20/21 03:00 99.4 F 96 16 115/56 L 92 L - Problem List & Annotations (1) Status post left knee replacement SNOMED Code(s): 7116582153329, 753422162, 8230764687357 Code(s): Z96.652 - PRESENCE OF LEFT ARTIFICIAL KNEE JOINT Status: Acute Current Visit: Yes (2) Postoperative anemia due to acute blood loss SNOMED Code(s): 72749743892253283 Code(s): D62 - ACUTE POSTHEMORRHAGIC ANEMIA Status: Acute Current Visit: Yes - Problem List Review Problem List Initiated/Reviewed/Updated: Yes - My Orders Last 24 Hours: Active Orders 24 hr Category Date Time Status GLUCOSE POC LAB TO COLLECT JPM [POC] QIDACANDBED Lab 01/20/21 16:30 Ordered GLUCOSE POC LAB TO COLLECT JPM [POC] QIDACANDBED Lab 01/20/21 21:00 Ordered GLUCOSE POC LAB TO COLLECT JPM [POC] QIDACANDBED Lab 01/21/21 07:30 Ordered GLUCOSE POC LAB TO COLLECT JPM [POC] QIDACANDBED Lab 01/21/21 11:30 Ordered GLUCOSE POC LAB TO COLLECT JPM [POC] QIDACANDBED Lab 01/21/21 16:30 Ordered GLUCOSE POC LAB TO COLLECT JPM [POC] QIDACANDBED Lab 01/21/21 21:00 Ordered GLUCOSE POC LAB TO COLLECT JPM [POC] QIDACANDBED Lab 01/22/21 07:30 Ordered GLUCOSE POC LAB TO COLLECT JPM [POC] QIDACANDBED Lab 01/22/21 11:30 Ordered Calcium Carbonate [Tums] Med 01/20/21 03:43 Active 1,000 mg PO Q2H PRN Digoxin [Lanoxin] Med 01/19/21 13:00 Active 250 mcg PO DAILY@1300 Insulin Glarg,Human.Rec.Analog [LantUS Solostar] Med 01/19/21 21:00 Active 10 units SUBCUT BEDTIME Insulin Lispro [HumaLOG] Med 01/19/21 17:00 Active See Protocol SUBCUT QIDACANDBED Medication Orders Acetaminophen (Acetaminophen 325 Mg Tab) 650 mg PO Q4H PRN PRN Reason: Pain/Fever Hydrocodone Bitart/Acetaminophen (Acetaminophen/Hydrocodone 325-5 Mg Tab) 1 tab PO Q4H PRN PRN Reason: Pain (mild 1-3) Last Admin: 01/18/21 19:37 Dose: 1 tab Documented by: Admin: 01/18/21 14:47 Dose: 1 tab Documented by: Admin: 01/18/21 10:56 Dose: 1 tab Documented by: CHIP Amlodipine Besylate (Amlodipine 5 Mg Tab) 2.5 mg PO DAILY [facility] Last Admin: 01/20/21 08:04 Dose: 2.5 mg Documented by: Admin: 01/19/21 08:05 Dose: 2.5 mg Documented by: MATT Bandage/Support Products (Nozin Nasal Take Out Waiter) 1 applic NASBOTH BID [facility] Admin: 01/20/21 08:07 Dose: 1 applic Documented by: Admin: 01/19/21 21:32 Dose: 1 applic Documented by: Admin: 01/19/21 08:04 Dose: 1 applic Documented by: Admin: 01/18/21 19:59 Dose: 1 applic Documented by: ABIOLA Calcium Carbonate/Glycine (Calcium Carbonate 500 Mg Tab.Chew) 1,000 mg PO Q2H PRN PRN Reason: Indigestion Last Admin: 01/20/21 04:11 Dose: 1,000 mg Documented by: ABIOLA Dextrose (Glucose Gel 15 Gm In 37.5 Gm Tube) 15 gm PO ONETIME PRN PRN Reason: Hypoglycemia Dextrose/Water (50% Dextrose In Water 50 Ml Syringe) 50 ml IVPUSH ASDIRECTED PRN PRN Reason: Hypoglycemia Digoxin (Digoxin 125 Mcg Tab) 250 mcg PO DAILY@1300 [facility] Last Admin: 01/19/21 12:29 Dose: 250 mcg Documented by: MATT Docusate Sodium (Docusate Sodium 100 Mg Cap) 100 mg PO BID [facility] Admin: 01/20/21 08:04 Dose: 100 mg Documented by: Admin: 01/19/21 21:34 Dose: 100 mg Documented by: Admin: 01/19/21 08:04 Dose: 100 mg Documented by: Admin: 01/18/21 19:59 Dose: 100 mg Documented by: ABIOLA Enoxaparin Sodium (Enoxaparin 30 Mg/0.3 Ml Syringe) 30 mg SUBCUT DAILY [facility] Last Admin: 01/20/21 08:05 Dose: 30 mg Documented by: Admin: 01/19/21 08:04 Dose: 30 mg Documented by: MATT Glucagon (Glucagon,Human Recombinant 1 Mg Vial) 1 mg IM ASDIRECTED PRN PRN Reason: Hypoglycemia Hydrochlorothiazide (Hydrochlorothiazide 25 Mg Tab) 25 mg PO DAILY [facility] Last Admin: 01/20/21 08:05 Dose: 25 mg Documented by: Admin: 01/19/21 08:05 Dose: 25 mg Documented by: MATT Sodium Chloride (Normal Saline) 1,000 mls @ 125 mls/hr IV ASDIRECTED [facility] Last Admin: 01/19/21 04:34 Dose: 125 mls/hr Documented by: Infusion: 01/19/21 03:51 Dose: 125 mls/hr Documented by: Admin: 01/18/21 19:51 Dose: 125 mls/hr Documented by: Infusion: 01/18/21 19:24 Dose: 125 mls/hr Documented by: Admin: 01/18/21 11:24 Dose: 125 mls/hr Documented by: CHIP Insulin Glargine (Insulin Glargine,Human Rec. Analog 100 Units/Ml 3 Ml Pen) 10 units SUBCUT BEDTIME [facility] Last Admin: 01/19/21 21:34 Dose: 10 units Documented by: ABIOLA Cosigned by: GONSLAU Insulin Human Lispro (Insulin Lispro 100 Unit/Ml 3 Ml Kwikpen) 0 unit SUBCUT QIDACANDBED [facility]; Protocol Last Admin: 01/20/21 08:07 Dose: Not Given Documented by: Admin: 01/19/21 21:36 Dose: Not Given Documented by: Admin: 01/19/21 17:31 Dose: 2 unit Documented by: MATT Cosigned by: ANGELIA Liraglutide (Liraglutide (Rdna Origin) 0.6 Mg/0.1 Ml 3 Ml Pen) 1.2 mg SUBCUT DAILY [facility] Last Admin: 01/20/21 08:10 Dose: 1.2 unit Documented by: Admin: 01/19/21 08:06 Dose: 1.2 unit Documented by: MATT Lisinopril 20 mg/ Lisinopril (10 mg) 30 mg PO DAILY [facility] Last Admin: 01/20/21 08:04 Dose: 30 mg Documented by: Admin: 01/19/21 08:05 Dose: 30 mg Documented by: MATT Magnesium Hydroxide (Magnesium Hydroxide 400 Mg/5 Ml Susp 30 Ml Cup) 30 ml PO BID PRN PRN Reason: Constipation Metformin HCl (Metformin 500 Mg Tab) 1,000 mg PO BIDMEALS [facility] Last Admin: 01/20/21 08:03 Dose: 1,000 mg Documented by: Admin: 01/19/21 17:31 Dose: 1,000 mg Documented by: Admin: 01/19/21 07:43 Dose: 1,000 mg Documented by: Admin: 01/18/21 18:25 Dose: 1,000 mg Documented by: CHIP Morphine Sulfate (Morphine 2 Mg/Ml Syringe) 1 mg IVPUSH Q1H PRN PRN Reason: Breakthrough Pain Last Admin: 01/18/21 11:32 Dose: 1 mg Documented by: CHIP Ondansetron HCl (Ondansetron 4 Mg/2 Ml Sdv) 4 mg IVPUSH Q4H PRN PRN Reason: Nausea/Vomiting Oxycodone/Acetaminophen (Acetaminophen/Oxycodone 325-5 Mg Tab) 1 - 2 tab PO Q4H PRN PRN Reason: Pain Last Admin: 01/20/21 09:49 Dose: 1 tab Documented by: Admin: 01/20/21 03:42 Dose: 1 tab Documented by: Admin: 01/19/21 14:29 Dose: 2 tab Documented by: Admin: 01/19/21 10:21 Dose: 1 tab Documented by: Admin: 01/19/21 05:34 Dose: 1 tab Documented by: Admin: 01/18/21 23:54 Dose: 1 tab Documented by: ABIOLA - Assessment Assessment (Free Text/Narrative):: Pleasant 85 y/o female, status post left total knee arthroplasty, POD #2. No acute events overnight. Hospitalist kindly agreed to review patients medical history yesterday and make adjustments as necessary for diabetes and kidney management. Blood sugars have improved with increased Lantus dosage. Vitals within acceptable range. Patient reports feeling well today. Has been reluctant to put weight on left leg. Education provided that she will not damage anything with full weight bearing. Continues to work with PT twice a day; has ambulated 6 feet with FWW and x2 moderate assist. ROM to 83 degrees flexion. Byers catheter remains in place due to limited ambulation abilities at this time. Pain well controlled at rest; increased with any attempt to weight bear. Patients appetite is decreased. No reports of nausea or emesis. Continues to require inpatient status at this time for additional therapy services to progress functional mobility of left leg and for post-operative medical management of diabetes and kidney failure. Exam: Dressing removed; incision well approximated, no surrounding erythema nor active drainage. Moderate postoperative swelling present on left lower extremity. Significant ecchymosis along left thigh and knee. LE neurovascular intact. Plan: * Hospitalist to kindly continue medical management of patient. * Dressing change performed today by orthopedic provider. * Byers remains in due to limited ambulation abilities. * Continue with BID physical therapy and daily occupational therapy. * Continue with current pain regimen. * Continue with 30 mg Lovenox subcutaneous daily and bilateral LE SCDs for DVT/VTE prophylaxis. * Anticipate discharge to SNF when medically stable and pain controlled with PO medications. facilities planner working on placement. Due to limited ambulation and functional mobility, unsafe for patient to go home with daughter as initially planned.
[2021-01-20] MEDS: Digoxin 125 MCG Tab PO SCH (13:56)
--- NOTE | 2021-01-20 17:53 | PCM.CONSN ---
- General Info Date of Service: 01/20/21 Subjective Update: Ms. Ng been stable since yesterday, continues to experience significant pain in her left leg with standing. Glucose levels have been, under much better control with current management. Renal function on follow-up lab yesterday was within normal range. Functional Status: Reports: Tolerating Diet - Review of Systems General: Reports: No Symptoms Pulmonary: Reports: No Symptoms Cardiovascular: Reports: No Symptoms Gastrointestinal: Reports: No Symptoms Musculoskeletal: Reports: Leg Pain - Patient Data Vitals - Most Recent: Last Vital Signs Temp 100.3 F 01/20/21 17:11 Pulse 101 H 01/20/21 17:11 Resp 16 01/20/21 17:11 BP 121/63 01/20/21 17:11 Pulse Ox 93 L 01/20/21 17:11 Weight - Most Recent: 118 lb 11.185 oz I&O - Last 24 Hours: Intake & Output 01/20/21 01/20/21 01/20/21 06:59 14:59 22:59 Intake Total 240 480 Output Total 275 325 Balance -35 155 Lab Results Last 24 Hours: Laboratory Results - last 24 hr 01/19/21 01/20/21 01/20/21 Range/Units 21:17 07:39 11:23 POC Glucose 126 H 124 H 196 H (74-106) mg/dL 01/20/21 Range/Units 16:59 POC Glucose 216 H (74-106) mg/dL Med Orders - Current: Current Medications Acetaminophen (Acetaminophen 325 Mg Tab) 650 mg PO Q4H PRN PRN Reason: Pain/Fever Hydrocodone Bitart/Acetaminophen (Acetaminophen/Hydrocodone 325-5 Mg Tab) 1 tab PO Q4H PRN PRN Reason: Pain (mild 1-3) Last Admin: 01/18/21 19:37 Dose: 1 tab Documented by: Amlodipine Besylate (Amlodipine 5 Mg Tab) 2.5 mg PO DAILY [facility] Last Admin: 01/20/21 08:04 Dose: 2.5 mg Documented by: Bandage/Support Products (Nozin Nasal Room Service Food Service Attendant) 1 applic NASBOTH BID [facility] Last Admin: 01/20/21 08:07 Dose: 1 applic Documented by: Calcium Carbonate/Glycine (Calcium Carbonate 500 Mg Tab.Chew) 1,000 mg PO Q2H PRN PRN Reason: Indigestion Last Admin: 01/20/21 04:11 Dose: 1,000 mg Documented by: Dextrose (Glucose Gel 15 Gm In 37.5 Gm Tube) 15 gm PO ONETIME PRN PRN Reason: Hypoglycemia Dextrose/Water (50% Dextrose In Water 50 Ml Syringe) 50 ml IVPUSH ASDIRECTED PRN PRN Reason: Hypoglycemia Digoxin (Digoxin 125 Mcg Tab) 250 mcg PO DAILY@1300 [facility] Last Admin: 01/20/21 13:56 Dose: 250 mcg Documented by: Docusate Sodium (Docusate Sodium 100 Mg Cap) 100 mg PO BID [facility] Last Admin: 01/20/21 08:04 Dose: 100 mg Documented by: Enoxaparin Sodium (Enoxaparin 30 Mg/0.3 Ml Syringe) 30 mg SUBCUT DAILY [facility] Last Admin: 01/20/21 08:05 Dose: 30 mg Documented by: Glucagon (Glucagon,Human Recombinant 1 Mg Vial) 1 mg IM ASDIRECTED PRN PRN Reason: Hypoglycemia Hydrochlorothiazide (Hydrochlorothiazide 25 Mg Tab) 25 mg PO DAILY [facility] Last Admin: 01/20/21 08:05 Dose: 25 mg Documented by: Sodium Chloride (Normal Saline) 1,000 mls @ 125 mls/hr IV ASDIRECTED [facility] Last Admin: 01/19/21 04:34 Dose: 125 mls/hr Documented by: Insulin Glargine (Insulin Glargine,Human Rec. Analog 100 Units/Ml 3 Ml Pen) 10 units SUBCUT BEDTIME [facility] Last Admin: 01/19/21 21:34 Dose: 10 units Documented by: Insulin Human Lispro (Insulin Lispro 100 Unit/Ml 3 Ml Kwikpen) 0 unit SUBCUT QIDACANDBED [facility]; Protocol Last Admin: 01/20/21 17:20 Dose: 2 unit Documented by: Lactobacillus Rhamnosus (Lactobacillus Rhamnosus Gg (Probiotic) Cap) 1 cap PO BID [facility] Liraglutide (Liraglutide (Rdna Origin) 0.6 Mg/0.1 Ml 3 Ml Pen) 1.2 mg SUBCUT DAILY [facility] Last Admin: 01/20/21 08:10 Dose: 1.2 unit Documented by: Lisinopril 20 mg/ Lisinopril (10 mg) 30 mg PO DAILY [facility] Last Admin: 01/20/21 08:04 Dose: 30 mg Documented by: Magnesium Hydroxide (Magnesium Hydroxide 400 Mg/5 Ml Susp 30 Ml Cup) 30 ml PO BID PRN PRN Reason: Constipation Metformin HCl (Metformin 500 Mg Tab) 1,000 mg PO BIDMEALS [facility] Last Admin: 01/20/21 17:23 Dose: 1,000 mg Documented by: Morphine Sulfate (Morphine 2 Mg/Ml Syringe) 1 mg IVPUSH Q1H PRN PRN Reason: Breakthrough Pain Last Admin: 01/18/21 11:32 Dose: 1 mg Documented by: Ondansetron HCl (Ondansetron 4 Mg/2 Ml Sdv) 4 mg IVPUSH Q4H PRN PRN Reason: Nausea/Vomiting Oxycodone/Acetaminophen (Acetaminophen/Oxycodone 325-5 Mg Tab) 1 - 2 tab PO Q4H PRN PRN Reason: Pain Last Admin: 01/20/21 09:49 Dose: 1 tab Documented by: Discontinued Medications Albuterol/Ipratropium (Albuterol/Ipratropium 3.0-0.5 Mg/3 Ml Neb Soln) 3 ml NEB ONETIME ONE Stop: 01/18/21 07:36 Last Admin: 01/18/21 07:43 Dose: 3 ml Documented by: Bandage/Support Products (Nozin Nasal Room Service Food Service Attendant) 1 applic NASBOTH BID [facility] Last Admin: 01/18/21 06:43 Dose: 1 applic Documented by: Dextrose/Water (50% Dextrose In Water 50 Ml Syringe) 50 ml IVPUSH ASDIRECTED PRN PRN Reason: Hypoglycemia Fentanyl (Fentanyl 100 Mcg/2 Ml Sdv) Confirm Administered Dose 100 mcg .ROUTE .STK-MED ONE Stop: 01/18/21 07:51 Glucagon (Glucagon,Human Recombinant 1 Mg Vial) 1 mg IM ASDIRECTED PRN PRN Reason: Hypoglycemia Cefazolin Sodium/Dextrose (Ancef 2 Gm/50 Ml) 50 mls @ 100 mls/hr IV ONETIME ONE Stop: 01/18/21 06:29 Last Admin: 01/18/21 07:50 Dose: 100 mls/hr Documented by: Lactated Ringer's (Ringers, Lactated) 1,000 mls @ 75 mls/hr IV ASDIRECTED [facility] Last Admin: 01/18/21 06:42 Dose: 75 mls/hr Documented by: Lactated Ringer's (Ringers, Lactated) Confirm Administered Dose 1,000 mls @ as directed .ROUTE .STK-MED ONE Stop: 01/18/21 08:33 Cefazolin Sodium/Dextrose 1 gm (/ Premix) 50 mls @ 200 mls/hr IV Q8H [facility] Stop: 01/19/21 06:14 Last Admin: 01/19/21 05:31 Dose: 200 mls/hr Documented by: Insulin Glargine (Insulin Glargine,Human Rec. Analog 100 Units/Ml 3 Ml Pen) 5 units SUBCUT BEDTIME [facility] Last Admin: 01/18/21 21:18 Dose: 5 units Documented by: Insulin Human Lispro (Insulin Lispro 100 Unit/Ml 3 Ml Kwikpen) 1 unit SUBCUT QIDACANDBED [facility]; Protocol Stop: 01/18/21 19:00 Last Admin: 01/19/21 00:30 Dose: Not Given Documented by: Insulin Human Lispro (Insulin Lispro 100 Unit/Ml 3 Ml Kwikpen) 0 unit SUBCUT QIDACANDBED [facility]; Protocol Stop: 01/22/21 20:00 Last Admin: 01/19/21 07:43 Dose: 1 units Documented by: Midazolam HCl (Midazolam 1 Mg/Ml 2 Ml Sdv) Confirm Administered Dose 2 mg .ROUTE .STK-MED ONE Stop: 01/18/21 07:51 Non-Formulary Medication (Lisinopril [Lisinopril]) 30 mg PO DAILY [facility] Povidone Iodine (Povidone-Iodine 10% Soln 118.25 Ml Bottle) Confirm Administered Dose 1 ml .ROUTE .STK-MED ONE Stop: 01/18/21 06:46 Last Admin: 01/18/21 08:25 Dose: 30 ml Documented by: Propofol (Propofol 200 Mg/20 Ml Sdv) Confirm Administered Dose 200 mg .ROUTE .STK-MED ONE Stop: 01/18/21 07:51 - Exam Urinary Catheter Total Time: 1Days 23Hours General: Alert, Oriented, Cooperative, Moderate Distress Lungs: Clear to Auscultation, Normal Respiratory Effort Cardiovascular: Regular Rate, Regular Rhythm, No Murmurs GI/Abdominal Exam: Soft, Non-Tender, No Organomegaly, No Distention Extremities: Leg Pain Sepsis Event Note - Evaluation Sepsis Screening Result: No Definite Risk - Focused Exam Vital Signs: Vital Signs Temp Pulse Pulse Resp BP BP Pulse Ox 01/20/21 17:11 100.3 F 101 H 16 121/63 93 L 01/20/21 13:56 97 01/20/21 11:46 97.7 F 92 16 117/54 L 99 01/20/21 08:04 128/60 01/20/21 07:37 97.8 F 98 16 128/60 97 Consult PN Assessment/Plan Procedures: Procedures ASSAY OF DIGOXIN TOTAL (01/06/20) ASSAY OF TROPONIN QUANT (11/13/17) COMPLETE CBC AUTOMATED (11/13/17) COMPLETE CBC W/AUTO DIFF WBC (01/06/20) COMPREHEN METABOLIC PANEL (01/06/20) CT HEAD/BRAIN W/O DYE (11/13/17) DRAIN/INJ JOINT/BURSA W/O US (10/20/20) ECG MONIT/REPRT UP TO 48 HRS (11/15/17) ECG MONIT/REPRT UP TO 48 HRS (11/15/17) ELECTROCARDIOGRAM TRACING (01/06/20) EMERGENCY DEPT VISIT (01/06/20) EMERGENCY DEPT VISIT (11/13/17) EXTRACRANIAL BILAT STUDY (11/15/17) GAIT TRAINING THERAPY (01/06/20) GLUCOSE BLOOD TEST (01/06/20) INSERT TEMP BLADDER CATH (01/06/20) METABOLIC PANEL TOTAL CA (01/06/20) OFFICE O/P EST LOW 20-29 MIN (10/20/20) OT EVAL LOW COMPLEX 30 MIN (01/06/20) POSTOP FOLLOW-UP VISIT (01/21/20) PT EVAL LOW COMPLEX 20 MIN (01/06/20) PT EVALUATION (01/12/15) ROUTINE VENIPUNCTURE (01/06/20) THERAPEUTIC ACTIVITIES (01/06/20) THERAPEUTIC EXERCISES (01/06/20) TTE W/DOPPLER COMPLETE (07/16/15) URINALYSIS AUTO W/SCOPE (01/06/20) URINE CULTURE/COLONY COUNT (11/13/17) X-RAY EXAM CHEST 1 VIEW (01/06/20) X-RAY EXAM HIP UNI 1 VIEW (02/11/20) X-RAY EXAM HIP UNI 2-3 VIEWS (01/06/20) X-RAY EXAM OF KNEE 3 (10/20/20) X-RAY EXAM OF KNEES (05/18/21) Problem List Initiated/Reviewed/Updated: Yes My Orders Last 24 Hours: My Active Orders 01/19/21 17:00 Insulin Lispro [HumaLOG] See Protocol SUBCUT QIDACANDBED 01/19/21 21:00 Insulin Glarg,Human.Rec.Analog [LantUS Solostar] 10 units SUBCUT BEDTIME 01/20/21 17:48 Orthostatic Vital Signs [RC] Q6HR 01/20/21 18:00 Lactobacillus Rhamnosus GG [Culturelle] 1 cap PO BID Plan: ASSESSMENT AND RECOMMENDATIONS STATUS POST LEFT TOTAL KNEE ARTHROPLASTY -Postoperative care per orthopedic service TYPE 2 DIABETES MELLITUS-glucose levels significantly improved with current management -Continue Victoza and Metformin -Increase Lantus insulin to 10 units at bedtime -Add low-dose sliding scale Humalog -4 times daily glucometers CHRONIC KIDNEY DISEASE STAGE IIIa-renal function within desired range on follow- up labs yesterday, urine output has improved -Continue current IV fluids -Closely monitor renal function and urine output
[2021-01-20] MEDS: Lactobacillus Rhamnosus GG (Probiotic) Cap PO SCH ×2 (18:13→21:23)
[2021-01-20] MEDS: Insulin Glargine,Human Rec. Analog 100 Units/ML 3 ML Pen SUBCUT SCH (21:19)
[2021-01-21] MEDS: Insulin Lispro 100 Unit/ML 3 ML KwikPen SUBCUT SCH ×4 (08:22→21:10)
[2021-01-21] MEDS: metFORMIN 500 MG Tab PO SCH ×2 (08:22→16:52)
--- NOTE | 2021-01-21 08:23 | PCM.SURGPN ---
- General Info Date of Service: 01/21/21 Date of Surgery/Procedure: 01/18/21 POD#: 3 Post-Op Diagnosis: s/p left total knee arthroplasty Admission Diagnosis/Problem: Knee joint operation Functional Status: Reports: Pain Controlled (at rest, increased with ambulation ), Tolerating Diet, Ambulating (minimally, FWW, x2 assist ) - Review of Systems General: Reports: Weakness, Malaise. Denies: Fever, Chills Musculoskeletal: Reports: Leg Pain (left ), Joint Pain (left knee, right hip ), Joint Swelling (left knee ) Skin: Reports: Bruising (left thigh, knee, calf ) Neurological: Reports: No Symptoms Psychiatric: Reports: No Symptoms - Patient Data Vitals - Most Recent: Last Vital Signs Temp 97.9 F 01/21/21 08:02 Pulse 89 01/21/21 08:02 Resp 16 01/21/21 08:02 BP 119/59 L 01/21/21 08:02 Pulse Ox 99 01/21/21 08:02 Orthostatic Blood Pressure [ 132/70 Standing] Orthostatic Blood Pressure [ 120/65 Sitting] Orthostatic Blood Pressure [ 119/59 Supine] Weight - Most Recent: 118 lb 11.185 oz I&O - Last 24 Hours: Intake & Output 01/20/21 01/21/21 01/21/21 22:59 06:59 14:59 Intake Total 300 Output Total 300 350 Balance -300 -50 Lab Results Last 24 Hrs: Laboratory Results - last 24 hr 01/20/21 01/20/21 01/20/21 Range/Units 11:23 16:59 21:04 Sodium (140-148) mmol/L Potassium (3.6-5.2) mmol/L Chloride (100-108) mmol/L Carbon Dioxide (21-32) mmol/L Anion Gap (5.0-14.0) mmol/L BUN (7-18) mg/dL Creatinine (0.6-1.0) mg/dL Est Cr Clr Drug Dosing mL/min Estimated GFR (MDRD) (>60) Glucose (74-106) mg/dL POC Glucose 196 H 216 H 143 H (74-106) mg/dL Calcium (8.5-10.1) mg/dL 01/21/21 01/21/21 Range/Units 06:17 07:38 Sodium 136 L (140-148) mmol/L Potassium 3.4 L (3.6-5.2) mmol/L Chloride 97 L (100-108) mmol/L Carbon Dioxide 33 H (21-32) mmol/L Anion Gap 9.4 (5.0-14.0) mmol/L BUN 12 (7-18) mg/dL Creatinine 0.6 (0.6-1.0) mg/dL Est Cr Clr Drug Dosing 57.72 mL/min Estimated GFR (MDRD) > 60 (>60) Glucose 129 H (74-106) mg/dL POC Glucose 160 H (74-106) mg/dL Calcium 9.0 (8.5-10.1) mg/dL Med Orders - Current: Current Medications Acetaminophen (Acetaminophen 325 Mg Tab) 650 mg PO Q4H PRN PRN Reason: Pain/Fever Hydrocodone Bitart/Acetaminophen (Acetaminophen/Hydrocodone 325-5 Mg Tab) 1 tab PO Q4H PRN PRN Reason: Pain (mild 1-3) Last Admin: 01/18/21 19:37 Dose: 1 tab Documented by: Amlodipine Besylate (Amlodipine 5 Mg Tab) 2.5 mg PO DAILY [facility] Last Admin: 01/20/21 08:04 Dose: 2.5 mg Documented by: Bandage/Support Products (Nozin Nasal [employer]) 1 applic NASBOTH BID [facility] Last Admin: 01/20/21 21:21 Dose: 1 applic Documented by: Calcium Carbonate/Glycine (Calcium Carbonate 500 Mg Tab.Chew) 1,000 mg PO Q2H PRN PRN Reason: Indigestion Last Admin: 01/20/21 04:11 Dose: 1,000 mg Documented by: Dextrose (Glucose Gel 15 Gm In 37.5 Gm Tube) 15 gm PO ONETIME PRN PRN Reason: Hypoglycemia Dextrose/Water (50% Dextrose In Water 50 Ml Syringe) 50 ml IVPUSH ASDIRECTED PRN PRN Reason: Hypoglycemia Digoxin (Digoxin 125 Mcg Tab) 250 mcg PO DAILY@1300 [facility] Last Admin: 01/20/21 13:56 Dose: 250 mcg Documented by: Docusate Sodium (Docusate Sodium 100 Mg Cap) 100 mg PO BID [facility] Last Admin: 01/20/21 21:20 Dose: 100 mg Documented by: Enoxaparin Sodium (Enoxaparin 30 Mg/0.3 Ml Syringe) 30 mg SUBCUT DAILY [facility] Last Admin: 01/20/21 08:05 Dose: 30 mg Documented by: Glucagon (Glucagon,Human Recombinant 1 Mg Vial) 1 mg IM ASDIRECTED PRN PRN Reason: Hypoglycemia Hydrochlorothiazide (Hydrochlorothiazide 25 Mg Tab) 25 mg PO DAILY [facility] Last Admin: 01/20/21 08:05 Dose: 25 mg Documented by: Sodium Chloride (Normal Saline) 1,000 mls @ 125 mls/hr IV ASDIRECTED [facility] Last Admin: 01/19/21 04:34 Dose: 125 mls/hr Documented by: Insulin Glargine (Insulin Glargine,Human Rec. Analog 100 Units/Ml 3 Ml Pen) 10 units SUBCUT BEDTIME [facility] Last Admin: 01/20/21 21:19 Dose: 10 units Documented by: Insulin Human Lispro (Insulin Lispro 100 Unit/Ml 3 Ml Kwikpen) 0 unit SUBCUT Q IDACANDBED [facility]; Protocol Last Admin: 01/20/21 21:21 Dose: Not Given Documented by: Lactobacillus Rhamnosus (Lactobacillus Rhamnosus Gg (Probiotic) Cap) 1 cap PO BID [facility] Last Admin: 01/20/21 21:23 Dose: 1 cap Documented by: Liraglutide (Liraglutide (Rdna Origin) 0.6 Mg/0.1 Ml 3 Ml Pen) 1.2 mg SUBCUT DAILY [facility] Last Admin: 01/20/21 08:10 Dose: 1.2 unit Documented by: Lisinopril 20 mg/ Lisinopril (10 mg) 30 mg PO DAILY [facility] Last Admin: 01/20/21 08:04 Dose: 30 mg Documented by: Magnesium Hydroxide (Magnesium Hydroxide 400 Mg/5 Ml Susp 30 Ml Cup) 30 ml PO BID PRN PRN Reason: Constipation Last Admin: 01/21/21 04:03 Dose: 30 ml Documented by: Metformin HCl (Metformin 500 Mg Tab) 1,000 mg PO BIDMEALS [facility] Last Admin: 01/20/21 17:23 Dose: 1,000 mg Documented by: Morphine Sulfate (Morphine 2 Mg/Ml Syringe) 1 mg IVPUSH Q1H PRN PRN Reason: Breakthrough Pain Last Admin: 01/18/21 11:32 Dose: 1 mg Documented by: Ondansetron HCl (Ondansetron 4 Mg/2 Ml Sdv) 4 mg IVPUSH Q4H PRN PRN Reason: Nausea/Vomiting Oxycodone/Acetaminophen (Acetaminophen/Oxycodone 325-5 Mg Tab) 1 - 2 tab PO Q4H PRN PRN Reason: Pain Last Admin: 01/20/21 18:10 Dose: 1 tab Documented by: Discontinued Medications Albuterol/Ipratropium (Albuterol/Ipratropium 3.0-0.5 Mg/3 Ml Neb Soln) 3 ml NEB ONETIME ONE Stop: 01/18/21 07:36 Last Admin: 01/18/21 07:43 Dose: 3 ml Documented by: Bandage/Support Products (Nozin Nasal [employer]) 1 applic NASBOTH BID [facility] Last Admin: 01/18/21 06:43 Dose: 1 applic Documented by: Dextrose/Water (50% Dextrose In Water 50 Ml Syringe) 50 ml IVPUSH ASDIRECTED PRN PRN Reason: Hypoglycemia Fentanyl (Fentanyl 100 Mcg/2 Ml Sdv) Confirm Administered Dose 100 mcg .ROUTE .STK-MED ONE Stop: 01/18/21 07:51 Glucagon (Glucagon,Human Recombinant 1 Mg Vial) 1 mg IM ASDIRECTED PRN PRN Reason: Hypoglycemia Cefazolin Sodium/Dextrose (Ancef 2 Gm/50 Ml) 50 mls @ 100 mls/hr IV ONETIME ONE Stop: 01/18/21 06:29 Last Admin: 01/18/21 07:50 Dose: 100 mls/hr Documented by: Lactated Ringer's (Ringers, Lactated) 1,000 mls @ 75 mls/hr IV ASDIRECTED [facility] Last Admin: 01/18/21 06:42 Dose: 75 mls/hr Documented by: Lactated Ringer's (Ringers, Lactated) Confirm Administered Dose 1,000 mls @ as directed .ROUTE .STK-MED ONE Stop: 01/18/21 08:33 Cefazolin Sodium/Dextrose 1 gm (/ Premix) 50 mls @ 200 mls/hr IV Q8H [facility] Stop: 01/19/21 06:14 Last Admin: 01/19/21 05:31 Dose: 200 mls/hr Documented by: Insulin Glargine (Insulin Glargine,Human Rec. Analog 100 Units/Ml 3 Ml Pen) 5 units SUBCUT BEDTIME [facility] Last Admin: 08/16/21 21:18 Dose: 5 units Documented by: Insulin Human Lispro (Insulin Lispro 100 Unit/Ml 3 Ml Kwikpen) 1 unit SUBCUT QIDACANDBED [facility]; Protocol Stop: 01/18/21 19:00 Last Admin: 01/19/21 00:30 Dose: Not Given Documented by: Insulin Human Lispro (Insulin Lispro 100 Unit/Ml 3 Ml Kwikpen) 0 unit SUBCUT QIDACANDBED [facility]; Protocol Stop: 01/22/21 20:00 Last Admin: 01/19/21 07:43 Dose: 1 units Documented by: Midazolam HCl (Midazolam 1 Mg/Ml 2 Ml Sdv) Confirm Administered Dose 2 mg .ROUTE .STK-MED ONE Stop: 01/18/21 07:51 Non-Formulary Medication (Lisinopril [Lisinopril]) 30 mg PO DAILY [facility] Povidone Iodine (Povidone-Iodine 10% Soln 118.25 Ml Bottle) Confirm Administered Dose 1 ml .ROUTE .STK-MED ONE Stop: 01/18/21 06:46 Last Admin: 01/18/21 08:25 Dose: 30 ml Documented by: Propofol (Propofol 200 Mg/20 Ml Sdv) Confirm Administered Dose 200 mg .ROUTE .STK-MED ONE Stop: 01/18/21 07:51 - Exam Wound/Incisions: Dressing Dry and Intact, No Drainage Quality Assessment: Urine Catheter, DVT Prophylaxis General: Alert, Oriented, Cooperative, No Acute Distress Extremities: Normal Capillary Refill, Pedal Edema, Joint Swelling (left knee), Leg Pain (left ), Limited Range of Motion (from postoperative swelling ), Other (left dorsiflexion: 3/5. plantar flexion: 4/5. ). No: Anderson's Sign Skin: Warm, Dry, Intact, Ecchymosis (left thigh, knee, calf ) Neurological: No New Focal Deficit Psy/Mental Status: Alert, Normal Affect, Normal Mood Sepsis Event Note - Evaluation Sepsis Screening Result: Possible Sepsis Risk - Focused Exam Vital Signs: Vital Signs Temp Pulse Resp BP Pulse Ox 01/21/21 08:02 97.9 F 89 16 119/59 L 99 01/21/21 03:58 98.7 F 88 16 109/48 L 92 L 01/20/21 22:40 97.4 F 93 16 124/50 L 97 - Problem List & Annotations (1) Status post left knee replacement SNOMED Code(s): 9700437879465, 128977319, 3215779950134 Code(s): Z96.652 - PRESENCE OF LEFT ARTIFICIAL KNEE JOINT Status: Acute Current Visit: Yes (2) Postoperative anemia due to acute blood loss SNOMED Code(s): 84624235142452475 Code(s): D62 - ACUTE POSTHEMORRHAGIC ANEMIA Status: Acute Current Visit: Yes - Problem List Review Problem List Initiated/Reviewed/Updated: Yes - My Orders Last 24 Hours: Active Orders 24 hr Category Date Time Status Orthostatic Vital Signs [RC] Q6HR Care 01/20/21 17:48 Active GLUCOSE POC LAB TO COLLECT JPM [POC] QIDACANDBED Lab 01/21/21 11:30 Ordered GLUCOSE POC LAB TO COLLECT JPM [POC] QIDACANDBED Lab 01/21/21 16:30 Ordered GLUCOSE POC LAB TO COLLECT JPM [POC] QIDACANDBED Lab 01/21/21 21:00 Ordered GLUCOSE POC LAB TO COLLECT JPM [POC] QIDACANDBED Lab 01/22/21 07:30 Ordered GLUCOSE POC LAB TO COLLECT JPM [POC] QIDACANDBED Lab 01/22/21 11:30 Ordered Lactobacillus Rhamnosus GG [Culturelle] Med 01/20/21 18:00 Active 1 cap PO BID Medication Orders Acetaminophen (Acetaminophen 325 Mg Tab) 650 mg PO Q4H PRN PRN Reason: Pain/Fever Hydrocodone Bitart/Acetaminophen (Acetaminophen/Hydrocodone 325-5 Mg Tab) 1 tab PO Q4H PRN PRN Reason: Pain (mild 1-3) Last Admin: 01/18/21 19:37 Dose: 1 tab Documented by: Admin: 01/18/21 14:47 Dose: 1 tab Documented by: Admin: 01/18/21 10:56 Dose: 1 tab Documented by: CHIP Amlodipine Besylate (Amlodipine 5 Mg Tab) 2.5 mg PO DAILY [facility] Last Admin: 01/20/21 08:04 Dose: 2.5 mg Documented by: Admin: 01/19/21 08:05 Dose: 2.5 mg Documented by: MATT Bandage/Support Products (Nozin Nasal [employer]sembl[employer]) 1 applic NASBOTH BID [facility] Last Admin: 01/20/21 21:21 Dose: 1 applic Documented by: Admin: 01/20/21 08:07 Dose: 1 applic Documented by: Admin: 01/19/21 21:32 Dose: 1 applic Documented by: Admin: 01/19/21 08:04 Dose: 1 applic Documented by: Admin: 01/18/21 19:59 Dose: 1 applic Documented by: ABIOLA Calcium Carbonate/Glycine (Calcium Carbonate 500 Mg Tab.Chew) 1,000 mg PO Q2H PRN PRN Reason: Indigestion Last Admin: 01/20/21 04:11 Dose: 1,000 mg Documented by: ABIOLA Dextrose (Glucose Gel 15 Gm In 37.5 Gm Tube) 15 gm PO ONETIME PRN PRN Reason: Hypoglycemia Dextrose/Water (50% Dextrose In Water 50 Ml Syringe) 50 ml IVPUSH ASDIRECTED PRN PRN Reason: Hypoglycemia Digoxin (Digoxin 125 Mcg Tab) 250 mcg PO DAILY@1300 [facility] Admin: 01/20/21 13:56 Dose: 250 mcg Documented by: Admin: 01/19/21 12:29 Dose: 250 mcg Documented by: MATT Docusate Sodium (Docusate Sodium 100 Mg Cap) 100 mg PO BID [facility] Admin: 01/20/21 21:20 Dose: 100 mg Documented by: Admin: 01/20/21 08:04 Dose: 100 mg Documented by: Admin: 01/19/21 21:34 Dose: 100 mg Documented by: Admin: 01/19/21 08:04 Dose: 100 mg Documented by: Admin: 01/18/21 19:59 Dose: 100 mg Documented by: ABIOLA Enoxaparin Sodium (Enoxaparin 30 Mg/0.3 Ml Syringe) 30 mg SUBCUT DAILY [facility] Admin: 01/20/21 08:05 Dose: 30 mg Documented by: Admin: 01/19/21 08:04 Dose: 30 mg Documented by: MATT Glucagon (Glucagon,Human Recombinant 1 Mg Vial) 1 mg IM ASDIRECTED PRN PRN Reason: Hypoglycemia Hydrochlorothiazide (Hydrochlorothiazide 25 Mg Tab) 25 mg PO DAILY [facility] Admin: 01/20/21 08:05 Dose: 25 mg Documented by: Admin: 01/19/21 08:05 Dose: 25 mg Documented by: MATT Sodium Chloride (Normal Saline) 1,000 mls @ 125 mls/hr IV ASDIRECTED [facility] Last Admin: 01/19/21 04:34 Dose: 125 mls/hr Documented by: Infusion: 01/19/21 03:51 Dose: 125 mls/hr Documented by: Admin: 01/18/21 19:51 Dose: 125 mls/hr Documented by: Infusion: 01/18/21 19:24 Dose: 125 mls/hr Documented by: Admin: 01/18/21 11:24 Dose: 125 mls/hr Documented by: CHIP Insulin Glargine (Insulin Glargine,Human Rec. Analog 100 Units/Ml 3 Ml Pen) 10 units SUBCUT BEDTIME [facility] Last Admin: 01/20/21 21:19 Dose: 10 units Documented by: GARLAND Cosigned by: THELMA Admin: 01/19/21 21:34 Dose: 10 units Documented by: ABIOLA Cosigned by: CHE Insulin Human Lispro (Insulin Lispro 100 Unit/Ml 3 Ml Kwikpen) 0 unit SUBCUT QIDACANDBED [facility]; Protocol Last Admin: 01/20/21 21:21 Dose: Not Given Documented by: Admin: 01/20/21 17:20 Dose: 2 unit Documented by: CHIP Cosigned by: KATHLEEN Admin: 01/20/21 13:54 Dose: 1 unit Documented by: CHIP Cosigned by: ROBERTO Admin: 01/20/21 08:07 Dose: Not Given Documented by: Admin: 01/19/21 21:36 Dose: Not Given Documented by: Admin: 01/19/21 17:31 Dose: 2 unit Documented by: MATT Cosigned by: ANGELIA Lactobacillus Rhamnosus (Lactobacillus Rhamnosus Gg (Probiotic) Cap) 1 cap PO BID [facility] Last Admin: 01/20/21 21:23 Dose: 1 cap Documented by: Admin: 01/20/21 18:13 Dose: 1 cap Documented by: CHIP Liraglutide (Liraglutide (Rdna Origin) 0.6 Mg/0.1 Ml 3 Ml Pen) 1.2 mg SUBCUT DAILY [facility] Last Admin: 01/20/21 08:10 Dose: 1.2 unit Documented by: Admin: 01/19/21 08:06 Dose: 1.2 unit Documented by: MATT Lisinopril 20 mg/ Lisinopril (10 mg) 30 mg PO DAILY [facility] Last Admin: 01/20/21 08:04 Dose: 30 mg Documented by: Admin: 01/19/21 08:05 Dose: 30 mg Documented by: MATT Magnesium Hydroxide (Magnesium Hydroxide 400 Mg/5 Ml Susp 30 Ml Cup) 30 ml PO BID PRN PRN Reason: Constipation Last Admin: 01/21/21 04:03 Dose: 30 ml Documented by: GARLAND Metformin HCl (Metformin 500 Mg Tab) 1,000 mg PO BIDMEALS [facility] Last Admin: 01/20/21 17:23 Dose: 1,000 mg Documented by: Admin: 01/20/21 08:03 Dose: 1,000 mg Documented by: Admin: 01/19/21 17:31 Dose: 1,000 mg Documented by: Admin: 01/19/21 07:43 Dose: 1,000 mg Documented by: Admin: 01/18/21 18:25 Dose: 1,000 mg Documented by: CHIP Morphine Sulfate (Morphine 2 Mg/Ml Syringe) 1 mg IVPUSH Q1H PRN PRN Reason: Breakthrough Pain Last Admin: 01/18/21 11:32 Dose: 1 mg Documented by: CHIP Ondansetron HCl (Ondansetron 4 Mg/2 Ml Sdv) 4 mg IVPUSH Q4H PRN PRN Reason: Nausea/Vomiting Oxycodone/Acetaminophen (Acetaminophen/Oxycodone 325-5 Mg Tab) 1 - 2 tab PO Q4H PRN PRN Reason: Pain Last Admin: 01/20/21 18:10 Dose: 1 tab Documented by: Admin: 01/20/21 09:49 Dose: 1 tab Documented by: Admin: 01/20/21 03:42 Dose: 1 tab Documented by: Admin: 01/19/21 14:29 Dose: 2 tab Documented by: Admin: 01/19/21 10:21 Dose: 1 tab Documented by: Admin: 01/19/21 05:34 Dose: 1 tab Documented by: Admin: 01/18/21 23:54 Dose: 1 tab Documented by: ABIOLA - Assessment Assessment (Free Text/Narrative):: Patient is a pleasant 85-year-old female, status post left total knee arthroplasty, postop day #3. No acute events overnight. Vitals remain within acceptable range. Hospitalist has kindly agreed to follow patient for medical management of diabetes and kidney failure. Blood sugars have significantly improved with the increase Lantus dosage. Urine output showed improvements yesterday. Patient compliant with twice a day physical therapy; struggling to ambulate further than 6 feet. Unable to bear full weight on left lower extremity from pain from recent total knee arthroplasty. Is also limited by right hip pain from hip fracture 3 months prior. Range of motion to left knee improving; nearly 90 degrees flexion this morning. Pain in left knee is well controlled at rest with oral pain medications. Signif icant increase in pain with any attempts to weight-bear on left lower extremity. Patient denied decreased appetite, but oral intake remains somewhat limited per staff. Denied nausea or emesis. Continues to require inpatient status at this time for additional therapy services to progress functional mobility of left lower extremity and for postoperative medical management of diabetes and kidney failure. Exam: Left knee dressing dry and intact. Moderate postoperative edema present on left lower extremity. Ecchymosis present along left posterior thigh, knee, extending into calf. Negative Homans' sign. Left lower extremity neurovascular intact. Plan: * Patient to continue with twice daily physical therapy services and daily occupational therapy services. * Discontinue Byers catheter today. * Encouraged patient to continue with 3 meals per day on consistent carbohydrate diet; needs energy to progress functional mobility. * Continue with current pain regimen. * Continue with 30 mg Lovenox subcutaneous daily and bilateral lower extremity SCDs for DVT/VTE prophylaxis. * Hospitalist to kindly continue medical management of this patient. * Anticipate discharge to [facility] facility when placement is available. landscape architect and planner is aware and has faxed out multiple referrals to nursing facilities in the area.
[2021-01-21] MEDS: Nozin Nasal Sanitizer NASBOTH SCH ×2 (08:27→21:12)
[2021-01-21] MEDS: Hydrochlorothiazide 25 MG Tab PO SCH (08:28)
[2021-01-21] MEDS: Docusate Sodium 100 MG Cap PO SCH ×2 (08:28→21:10)
[2021-01-21] MEDS: amLODIPine 5 MG Tab PO SCH (08:29)
[2021-01-21] MEDS: Enoxaparin 30 MG/0.3 ML Syringe SUBCUT SCH (08:31)
[2021-01-21] MEDS: Liraglutide (rDNA Origin) 0.6 MG/0.1 ML 3 ML Pen SUBCUT SCH (08:32)
[2021-01-21] MEDS: Lactobacillus Rhamnosus GG (Probiotic) Cap PO SCH ×2 (10:49→21:10)
[2021-01-21] MEDS: Digoxin 125 MCG Tab PO SCH (13:37)
[2021-01-21] MEDS: Acetaminophen/oxyCODONE 325-5 MG Tab PO PRN ×2 (18:38→23:30)
[2021-01-21] MEDS: Insulin Glargine,Human Rec. Analog 100 Units/ML 3 ML Pen SUBCUT SCH (21:11)
[2021-01-21] MEDS ORDERED: Insulin Glargine,Human Rec. Analog 100 Units/ML 3 ML Pen SUBCUT ONE (22:00)
--- NOTE | 2021-01-21 22:04 | PCM.CONSN ---
- General Info Date of Service: 01/21/21 Admission Dx/Problem (Free Text): Admission Diagnosis/Problem Admission Diagnosis/Problem Knee joint operation Admission Diagnosis/Problem Knee joint operation Subjective Update: Ms. Hodges blood sugar is still elevated today. She has been drinking fruit smoothies with protein powder added which may be part of the problem. She has no complaints. Functional Status: Reports: Tolerating Diet - Review of Systems General: Reports: No Symptoms HEENT: Reports: No Symptoms Pulmonary: Reports: No Symptoms Cardiovascular: Reports: No Symptoms Gastrointestinal: Reports: No Symptoms Genitourinary: Reports: No Symptoms Musculoskeletal: Reports: Leg Pain Skin: Reports: No Symptoms Neurological: Reports: No Symptoms Psychiatric: Reports: No Symptoms - Patient Data Vitals - Most Recent: Last Vital Signs Temp 98.7 F 01/21/21 19:00 Pulse 89 01/21/21 19:00 Resp 18 01/21/21 19:00 BP 112/52 L 01/21/21 19:00 Pulse Ox 94 L 01/21/21 19:00 Orthostatic Blood Pressure [ 125/62 Standing] Orthostatic Blood Pressure [ 107/45 Sitting] Orthostatic Blood Pressure [ 117/51 Supine] Weight - Most Recent: 118 lb 11.185 oz I&O - Last 24 Hours: Intake & Output 01/21/21 01/21/21 01/21/21 06:59 14:59 22:59 Intake Total 300 600 320 Output Total 350 60 475 Balance -50 540 -155 Lab Results Last 24 Hours: Laboratory Results - last 24 hr 01/21/21 01/21/21 01/21/21 Range/Units 06:17 07:38 11:17 Sodium 136 L (140-148) mmol/L Potassium 3.4 L (3.6-5.2) mmol/L Chloride 97 L (100-108) mmol/L Carbon Dioxide 33 H (21-32) mmol/L Anion Gap 9.4 (5.0-14.0) mmol/L BUN 12 (7-18) mg/dL Creatinine 0.6 (0.6-1.0) mg/dL Est Cr Clr Drug Dosing 57.72 mL/min Estimated GFR (MDRD) > 60 (>60) Glucose 129 H (74-106) mg/dL POC Glucose 160 H 284 H (74-106) mg/dL Calcium 9.0 (8.5-10.1) mg/dL 01/21/21 01/21/21 Range/Units 16:40 20:56 Sodium (140-148) mmol/L Potassium (3.6-5.2) mmol/L Chloride (100-108) mmol/L Carbon Dioxide (21-32) mmol/L Anion Gap (5.0-14.0) mmol/L BUN (7-18) mg/dL Creatinine (0.6-1.0) mg/dL Est Cr Clr Drug Dosing mL/min Estimated GFR (MDRD) (>60) Glucose (74-106) mg/dL POC Glucose 119 H 225 H (74-106) mg/dL Calcium (8.5-10.1) mg/dL Med Orders - Current: Current Medications Acetaminophen (Acetaminophen 325 Mg Tab) 650 mg PO Q4H PRN PRN Reason: Pain/Fever Last Admin: 01/21/21 08:21 Dose: 650 mg Documented by: Hydrocodone Bitart/Acetaminophen (Acetaminophen/Hydrocodone 325-5 Mg Tab) 1 tab PO Q4H PRN PRN Reason: Pain (mild 1-3) Last Admin: 01/18/21 19:37 Dose: 1 tab Documented by: Amlodipine Besylate (Amlodipine 5 Mg Tab) 2.5 mg PO DAILY [facility] Last Admin: 01/21/21 08:29 Dose: 2.5 mg Documented by: Bandage/Support Products (Nozin Nasal Nca Certified Concierge) 1 applic NASBOTH BID [facility] Last Admin: 01/21/21 21:12 Dose: 1 applic Documented by: Calcium Carbonate/Glycine (Calcium Carbonate 500 Mg Tab.Chew) 1,000 mg PO Q2H PRN PRN Reason: Indigestion Last Admin: 01/20/21 04:11 Dose: 1,000 mg Documented by: Dextrose (Glucose Gel 15 Gm In 37.5 Gm Tube) 15 gm PO ONETIME PRN PRN Reason: Hypoglycemia Dextrose/Water (50% Dextrose In Water 50 Ml Syringe) 50 ml IVPUSH ASDIRECTED PRN PRN Reason: Hypoglycemia Digoxin (Digoxin 125 Mcg Tab) 250 mcg PO DAILY@1300 [facility] Last Admin: 01/21/21 13:37 Dose: 250 mcg Documented by: Docusate Sodium (Docusate Sodium 100 Mg Cap) 100 mg PO BID [facility] Last Admin: 01/21/21 21:10 Dose: 100 mg Documented by: Enoxaparin Sodium (Enoxaparin 30 Mg/0.3 Ml Syringe) 30 mg SUBCUT DAILY [facility] Last Admin: 01/21/21 08:31 Dose: 30 mg Documented by: Glucagon (Glucagon,Human Recombinant 1 Mg Vial) 1 mg IM ASDIRECTED PRN PRN Reason: Hypoglycemia Hydrochlorothiazide (Hydrochlorothiazide 25 Mg Tab) 25 mg PO DAILY [facility] Last Admin: 01/21/21 08:28 Dose: 25 mg Documented by: Sodium Chloride (Normal Saline) 1,000 mls @ 125 mls/hr IV ASDIRECTED [facility] Last Admin: 01/19/21 04:34 Dose: 125 mls/hr Documented by: Insulin Glargine (Insulin Glargine,Human Rec. Analog 100 Units/Ml 3 Ml Pen) 10 units SUBCUT BEDTIME [facility] Last Admin: 01/21/21 21:11 Dose: 10 units Documented by: Insulin Human Lispro (Insulin Lispro 100 Unit/Ml 3 Ml Kwikpen) 0 unit SUBCUT QIDACANDBED [facility]; Protocol Last Admin: 01/21/21 21:10 Dose: 2 unit Documented by: Lactobacillus Rhamnosus (Lactobacillus Rhamnosus Gg (Probiotic) Cap) 1 cap PO BID [facility] Last Admin: 01/21/21 21:10 Dose: 1 cap Documented by: Liraglutide (Liraglutide (Rdna Origin) 0.6 Mg/0.1 Ml 3 Ml Pen) 1.2 mg SUBCUT DAILY [facility] Last Admin: 01/21/21 08:32 Dose: 1.2 unit Documented by: Lisinopril 20 mg/ Lisinopril (10 mg) 30 mg PO DAILY [facility] Last Admin: 01/21/21 08:28 Dose: 30 mg Documented by: Magnesium Hydroxide (Magnesium Hydroxide 400 Mg/5 Ml Susp 30 Ml Cup) 30 ml PO BID PRN PRN Reason: Constipation Last Admin: 01/21/21 04:03 Dose: 30 ml Documented by: Metformin HCl (Metformin 500 Mg Tab) 1,000 mg PO BIDMEALS [facility] Last Admin: 01/21/21 16:52 Dose: 1,000 mg Documented by: Morphine Sulfate (Morphine 2 Mg/Ml Syringe) 1 mg IVPUSH Q1H PRN PRN Reason: Breakthrough Pain Last Admin: 01/18/21 11:32 Dose: 1 mg Documented by: Ondansetron HCl (Ondansetron 4 Mg/2 Ml Sdv) 4 mg IVPUSH Q4H PRN PRN Reason: Nausea/Vomiting Oxycodone/Acetaminophen (Acetaminophen/Oxycodone 325-5 Mg Tab) 1 - 2 tab PO Q4H PRN PRN Reason: Pain Last Admin: 01/21/21 18:38 Dose: 2 tab Documented by: Discontinued Medications Albuterol/Ipratropium (Albuterol/Ipratropium 3.0-0.5 Mg/3 Ml Neb Soln) 3 ml NEB ONETIME ONE Stop: 01/18/21 07:36 Last Admin: 01/18/21 07:43 Dose: 3 ml Documented by: Bandage/Support Products (Nozin Nasal Nca Certified Concierge) 1 applic NASBOTH BID [facility] Last Admin: 01/18/21 06:43 Dose: 1 applic Documented by: Dextrose/Water (50% Dextrose In Water 50 Ml Syringe) 50 ml IVPUSH ASDIRECTED PRN PRN Reason: Hypoglycemia Fentanyl (Fentanyl 100 Mcg/2 Ml Sdv) Confirm Administered Dose 100 mcg .ROUTE .STK-MED ONE Stop: 01/18/21 07:51 Glucagon (Glucagon,Human Recombinant 1 Mg Vial) 1 mg IM ASDIRECTED PRN PRN Reason: Hypoglycemia Cefazolin Sodium/Dextrose (Ancef 2 Gm/50 Ml) 50 mls @ 100 mls/hr IV ONETIME ONE Stop: 01/18/21 06:29 Last Admin: 01/18/21 07:50 Dose: 100 mls/hr Documented by: Lactated Ringer's (Ringers, Lactated) 1,000 mls @ 75 mls/hr IV ASDIRECTED [facility] Last Admin: 01/18/21 06:42 Dose: 75 mls/hr Documented by: Lactated Ringer's (Ringers, Lactated) Confirm Administered Dose 1,000 mls @ as directed .ROUTE .STK-MED ONE Stop: 01/18/21 08:33 Cefazolin Sodium/Dextrose 1 gm (/ Premix) 50 mls @ 200 mls/hr IV Q8H [facility] Stop: 01/19/21 06:14 Last Admin: 01/19/21 05:31 Dose: 200 mls/hr Documented by: Insulin Glargine (Insulin Glargine,Human Rec. Analog 100 Units/Ml 3 Ml Pen) 5 units SUBCUT BEDTIME [facility] Last Admin: 01/18/21 21:18 Dose: 5 units Documented by: Insulin Human Lispro (Insulin Lispro 100 Unit/Ml 3 Ml Kwikpen) 1 unit SUBCUT QIDACANDBED [facility]; Protocol Stop: 01/18/21 19:00 Last Admin: 01/19/21 00:30 Dose: Not Given Documented by: Insulin Human Lispro (Insulin Lispro 100 Unit/Ml 3 Ml Kwikpen) 0 unit SUBCUT QIDACANDBED [facility]; Protocol Stop: 01/22/21 20:00 Last Admin: 01/19/21 07:43 Dose: 1 units Documented by: Midazolam HCl (Midazolam 1 Mg/Ml 2 Ml Sdv) Confirm Administered Dose 2 mg .ROUTE .STK-MED ONE Stop: 01/18/21 07:51 Non-Formulary Medication (Lisinopril [Lisinopril]) 30 mg PO DAILY [facility] Povidone Iodine (Povidone-Iodine 10% Soln 118.25 Ml Bottle) Confirm Administered Dose 1 ml .ROUTE .STK-MED ONE Stop: 01/18/21 06:46 Last Admin: 01/18/21 08:25 Dose: 30 ml Documented by: Propofol (Propofol 200 Mg/20 Ml Sdv) Confirm Administered Dose 200 mg .ROUTE .STK-MED ONE Stop: 01/18/21 07:51 - Exam Urinary Catheter Total Time: 3Days 10Hours General: Alert, Oriented, Cooperative, No Acute Distress HEENT: Pupils Equal, EOMI, Mucous Membr. Moist/[place] Neck: Supple, Trachea Midline Lungs: Clear to Auscultation, Normal Respiratory Effort Cardiovascular: Regular Rate, Regular Rhythm GI/Abdominal Exam: Normal Bowel Sounds, Soft, Non-Tender, No Distention Skin: Warm, Dry, Intact Neurological: No New Focal Deficit Psy/Mental Status: Alert, Normal Affect, Normal Mood Sepsis Event Note - Evaluation Sepsis Screening Result: No Definite Risk - Focused Exam Vital Signs: Vital Signs Temp Pulse Pulse Resp BP Pulse Ox 01/21/21 19:00 98.7 F 89 18 112/52 L 94 L 01/21/21 15:15 97.7 F 81 16 111/54 L 100 01/21/21 13:37 84 01/21/21 11:11 97.3 F 84 16 102/54 L 97 Consult PN Assessment/Plan Procedures: Procedures ASSAY OF DIGOXIN TOTAL (01/06/20) ASSAY OF TROPONIN QUANT (11/13/17) COMPLETE CBC AUTOMATED (11/13/17) COMPLETE CBC W/AUTO DIFF WBC (01/06/20) COMPREHEN METABOLIC PANEL (01/06/20) CT HEAD/BRAIN W/O DYE (11/13/17) DRAIN/INJ JOINT/BURSA W/O US (10/20/20) ECG MONIT/REPRT UP TO 48 HRS (11/15/17) ECG MONIT/REPRT UP TO 48 HRS (11/15/17) ELECTROCARDIOGRAM TRACING (01/06/20) EMERGENCY DEPT VISIT (01/06/20) EMERGENCY DEPT VISIT (11/13/17) EXTRACRANIAL BILAT STUDY (11/15/17) GAIT TRAINING THERAPY (01/06/20) GLUCOSE BLOOD TEST (01/06/20) INSERT TEMP BLADDER CATH (01/06/20) METABOLIC PANEL TOTAL CA (01/06/20) OFFICE O/P EST LOW 20-29 MIN (10/20/20) OT EVAL LOW COMPLEX 30 MIN (01/06/20) POSTOP FOLLOW-UP VISIT (01/21/20) PT EVAL LOW COMPLEX 20 MIN (01/06/20) PT EVALUATION (01/12/15) ROUTINE VENIPUNCTURE (01/06/20) THERAPEUTIC ACTIVITIES (01/06/20) THERAPEUTIC EXERCISES (01/06/20) TTE W/DOPPLER COMPLETE (07/16/15) URINALYSIS AUTO W/SCOPE (01/06/20) URINE CULTURE/COLONY COUNT (11/13/17) X-RAY EXAM CHEST 1 VIEW (01/06/20) X-RAY EXAM HIP UNI 1 VIEW (02/11/20) X-RAY EXAM HIP UNI 2-3 VIEWS (01/06/20) X-RAY EXAM OF KNEE 3 (10/20/20) X-RAY EXAM OF KNEES (10/20/20) (1) Status post left knee replacement SNOMED Code(s): 8170950693744, 898933760, 7089064759761 Code(s): Z96.652 - PRESENCE OF LEFT ARTIFICIAL KNEE JOINT Current Visit: Yes (2) Diabetes mellitus SNOMED Code(s): 03043875 Code(s): E11.9 - TYPE 2 DIABETES MELLITUS WITHOUT COMPLICATIONS Current Visit: No Problem List Initiated/Reviewed/Updated: Yes My Orders Last 24 Hours: My Active Orders 01/21/21 22:00 Insulin Glarg,Human.Rec.Analog [LantUS Solostar] 4 units SUBCUT BID ONE 01/22/21 21:00 Insulin Glarg,Human.Rec.Analog [LantUS Solostar] 14 units SUBCUT BEDTIME Plan: Diabetes mellitus -Increased Lantus from 10 units at bedtime to 14 units at bedtime -Continue sliding scale insulin as needed with meals Status post left knee replacement -Management per surgical team Plan: We will continue to monitor blood sugars until we have a sustained blood glucose under 180 Erin David DO
--- NOTE | 2021-01-22 08:15 | PCM.SURGPN ---
- General Info Date of Service: 01/22/21 Date of Surgery/Procedure: 01/18/21 POD#: 4 Post-Op Diagnosis: left knee osteoarthritis Admission Diagnosis/Problem: Knee joint operation Functional Status: Reports: Pain Controlled (at rest, increased with weight bearing on LLE ), Tolerating Diet, Ambulating (with FWW, x1 mod assist ), Urinating - Review of Systems General: Reports: Weakness, Malaise. Denies: Fever, Chills, Night Sweats Pulmonary: Denies: Shortness of Breath Cardiovascular: Denies: Chest Pain Musculoskeletal: Reports: Leg Pain (left ) Skin: Reports: Bruising - Patient Data Vitals - Most Recent: Last Vital Signs Temp 97.0 F 01/22/21 02:39 Pulse 81 01/22/21 02:39 Resp 18 01/22/21 02:39 BP 131/53 L 01/22/21 02:39 Pulse Ox 100 01/22/21 02:39 Orthostatic Blood Pressure [ 125/62 Standing] Orthostatic Blood Pressure [ 107/45 Sitting] Orthostatic Blood Pressure [ 117/51 Supine] Weight - Most Recent: 118 lb 11.185 oz I&O - Last 24 Hours: Intake & Output 01/21/21 01/22/21 01/22/21 22:59 06:59 14:59 Intake Total 320 940 Output Total 475 250 Balance -155 690 Lab Results Last 24 Hrs: Laboratory Results - last 24 hr 01/21/21 01/21/21 01/21/21 Range/Units 11:17 16:40 20:56 POC Glucose 284 H 119 H 225 H (74-106) mg/dL 01/22/21 Range/Units 07:17 POC Glucose 171 H (74-106) mg/dL Med Orders - Current: Current Medications Acetaminophen (Acetaminophen 325 Mg Tab) 650 mg PO Q4H PRN PRN Reason: Pain/Fever Last Admin: 01/21/21 08:21 Dose: 650 mg Documented by: Hydrocodone Bitart/Acetaminophen (Acetaminophen/Hydrocodone 325-5 Mg Tab) 1 tab PO Q4H PRN PRN Reason: Pain (mild 1-3) Last Admin: 01/18/21 19:37 Dose: 1 tab Documented by: Amlodipine Besylate (Amlodipine 5 Mg Tab) 2.5 mg PO DAILY SHELBI Last Admin: 01/21/21 08:29 Dose: 2.5 mg Documented by: Bandage/Support Products (Nozin Nasal Fudger) 1 applic NASBOTH BID [facility] Last Admin: 01/21/21 21:12 Dose: 1 applic Documented by: Calcium Carbonate/Glycine (Calcium Carbonate 500 Mg Tab.Chew) 1,000 mg PO Q2H PRN PRN Reason: Indigestion Last Admin: 01/20/21 04:11 Dose: 1,000 mg Documented by: Dextrose (Glucose Gel 15 Gm In 37.5 Gm Tube) 15 gm PO ONETIME PRN PRN Reason: Hypoglycemia Dextrose/Water (50% Dextrose In Water 50 Ml Syringe) 50 ml IVPUSH ASDIRECTED PRN PRN Reason: Hypoglycemia Digoxin (Digoxin 125 Mcg Tab) 250 mcg PO DAILY@1300 [facility] Last Admin: 01/21/21 13:37 Dose: 250 mcg Documented by: Docusate Sodium (Docusate Sodium 100 Mg Cap) 100 mg PO BID [facility] Last Admin: 01/21/21 21:10 Dose: 100 mg Documented by: Enoxaparin Sodium (Enoxaparin 30 Mg/0.3 Ml Syringe) 30 mg SUBCUT DAILY [facility] Last Admin: 01/21/21 08:31 Dose: 30 mg Documented by: Glucagon (Glucagon,Human Recombinant 1 Mg Vial) 1 mg IM ASDIRECTED PRN PRN Reason: Hypoglycemia Hydrochlorothiazide (Hydrochlorothiazide 25 Mg Tab) 25 mg PO DAILY [facility] Last Admin: 01/21/21 08:28 Dose: 25 mg Documented by: Insulin Glargine (Insulin Glargine,Human Rec. Analog 100 Units/Ml 3 Ml Pen) 14 units SUBCUT BEDTIME [facility] Insulin Human Lispro (Insulin Lispro 100 Unit/Ml 3 Ml Kwikpen) 0 unit SUBCUT QIDACANDBED [facility]; Protocol Last Admin: 01/21/21 21:10 Dose: 2 unit Documented by: Lactobacillus Rhamnosus (Lactobacillus Rhamnosus Gg (Probiotic) Cap) 1 cap PO BID [facility] Last Admin: 01/21/21 21:10 Dose: 1 cap Documented by: Liraglutide (Liraglutide (Rdna Origin) 0.6 Mg/0.1 Ml 3 Ml Pen) 1.2 mg SUBCUT DAILY [facility] Last Admin: 01/21/21 08:32 Dose: 1.2 unit Documented by: Lisinopril 20 mg/ Lisinopril (10 mg) 30 mg PO DAILY [facility] Last Admin: 01/21/21 08:28 Dose: 30 mg Documented by: Magnesium Hydroxide (Magnesium Hydroxide 400 Mg/5 Ml Susp 30 Ml Cup) 30 ml PO BID PRN PRN Reason: Constipation Last Admin: 01/21/21 04:03 Dose: 30 ml Documented by: Metformin HCl (Metformin 500 Mg Tab) 1,000 mg PO BIDMEALS [facility] Last Admin: 01/21/21 16:52 Dose: 1,000 mg Documented by: Morphine Sulfate (Morphine 2 Mg/Ml Syringe) 1 mg IVPUSH Q1H PRN PRN Reason: Breakthrough Pain Last Admin: 01/18/21 11:32 Dose: 1 mg Documented by: Ondansetron HCl (Ondansetron 4 Mg/2 Ml Sdv) 4 mg IVPUSH Q4H PRN PRN Reason: Nausea/Vomiting Oxycodone/Acetaminophen (Acetaminophen/Oxycodone 325-5 Mg Tab) 1 - 2 tab PO Q4H PRN PRN Reason: Pain Last Admin: 01/21/21 23:30 Dose: 2 tab Documented by: Discontinued Medications Albuterol/Ipratropium (Albuterol/Ipratropium 3.0-0.5 Mg/3 Ml Neb Soln) 3 ml NEB ONETIME ONE Stop: 01/18/21 07:36 Last Admin: 01/18/21 07:43 Dose: 3 ml Documented by: Bandage/Support Products (Nozin Nasal Fudger) 1 applic NASBOTH BID [facility] Last Admin: 01/18/21 06:43 Dose: 1 applic Documented by: Dextrose/Water (50% Dextrose In Water 50 Ml Syringe) 50 ml IVPUSH ASDIRECTED PRN PRN Reason: Hypoglycemia Fentanyl (Fentanyl 100 Mcg/2 Ml Sdv) Confirm Administered Dose 100 mcg .ROUTE .STK-MED ONE Stop: 01/18/21 07:51 Glucagon (Glucagon,Human Recombinant 1 Mg Vial) 1 mg IM ASDIRECTED PRN PRN Reason: Hypoglycemia Cefazolin Sodium/Dextrose (Ancef 2 Gm/50 Ml) 50 mls @ 100 mls/hr IV ONETIME ONE Stop: 01/18/21 06:29 Last Admin: 01/18/21 07:50 Dose: 100 mls/hr Documented by: Lactated Ringer's (Ringers, Lactated) 1,000 mls @ 75 mls/hr IV ASDIRECTED [facility] Last Admin: 01/18/21 06:42 Dose: 75 mls/hr Documented by: Lactated Ringer's (Ringers, Lactated) Confirm Administered Dose 1,000 mls @ as directed .ROUTE .STK-MED ONE Stop: 01/18/21 08:33 Sodium Chloride (Normal Saline) 1,000 mls @ 125 mls/hr IV ASDIRECTED [facility] Last Admin: 01/19/21 04:34 Dose: 125 mls/hr Documented by: Cefazolin Sodium/Dextrose 1 gm (/ Premix) 50 mls @ 200 mls/hr IV Q8H SHEL[facility] Stop: 01/19/21 06:14 Last Admin: 01/19/21 05:31 Dose: 200 mls/hr Documented by: Insulin Glargine (Insulin Glargine,Human Rec. Analog 100 Units/Ml 3 Ml Pen) 5 units SUBCUT BEDTIME [facility] Last Admin: 01/18/21 21:18 Dose: 5 units Documented by: Insulin Glargine (Insulin Glargine,Human Rec. Analog 100 Units/Ml 3 Ml Pen) 10 units SUBCUT BEDTIME [facility] Last Admin: 01/21/21 21:11 Dose: 10 units Documented by: Insulin Glargine (Insulin Glargine,Human Rec. Analog 100 Units/Ml 3 Ml Pen) 4 units SUBCUT BID ONE Stop: 01/21/21 22:01 Last Admin: 01/21/21 23:26 Dose: 4 units Documented by: Insulin Human Lispro (Insulin Lispro 100 Unit/Ml 3 Ml Kwikpen) 1 unit SUBCUT QIDACANDBED [facility]; Protocol Stop: 01/18/21 19:00 Last Admin: 01/19/21 00:30 Dose: Not Given Documented by: Insulin Human Lispro (Insulin Lispro 100 Unit/Ml 3 Ml Kwikpen) 0 unit SUBCUT QIDACANDBED [facility]; Protocol Stop: 01/22/21 20:00 Last Admin: 01/19/21 07:43 Dose: 1 units Documented by: Midazolam HCl (Midazolam 1 Mg/Ml 2 Ml Sdv) Confirm Administered Dose 2 mg .ROUTE .STK-MED ONE Stop: 01/18/21 07:51 Non-Formulary Medication (Lisinopril [Lisinopril]) 30 mg PO DAILY SHELBI Povidone Iodine (Povidone-Iodine 10% Soln 118.25 Ml Bottle) Confirm Administered Dose 1 ml .ROUTE .STK-MED ONE Stop: 01/18/21 06:46 Last Admin: 01/18/21 08:25 Dose: 30 ml Documented by: Propofol (Propofol 200 Mg/20 Ml Sdv) Confirm Administered Dose 200 mg .ROUTE .STK-MED ONE Stop: 01/18/21 07:51 - Exam Wound/Incisions: Healing Well, Dressing Dry and Intact, No Drainage Quality Assessment: DVT Prophylaxis General: Alert, Oriented, Cooperative, No Acute Distress Extremities: Normal Capillary Refill, Pedal Edema, Joint Swelling (left knee ), Leg Pain (left ), Limited Range of Motion (from postoperative swelling and pain ). No: Anderson's Sign Skin: Dry, Intact, Ecchymosis (left thigh, knee, calf ) Neurological: No New Focal Deficit Psy/Mental Status: Alert, Normal Affect, Normal Mood Sepsis Event Note - Evaluation Sepsis Screening Result: No Definite Risk - Focused Exam Vital Signs: Vital Signs Temp Pulse Resp BP Pulse Ox 01/22/21 02:39 97.0 F 81 18 131/53 L 100 01/21/21 23:00 96.7 F L 80 16 111/51 L 97 - Problem List & Annotations (1) Status post left knee replacement SNOMED Code(s): 5149898884880, [id number], 7492742301930 Code(s): Z96.652 - PRESENCE OF LEFT ARTIFICIAL KNEE JOINT Status: Acute Current Visit: Yes (2) Postoperative anemia due to acute blood loss SNOMED Code(s): 10163474024394894 Code(s): D62 - ACUTE POSTHEMORRHAGIC ANEMIA Status: Acute Current Visit: Yes - Problem List Review Problem List Initiated/Reviewed/Updated: Yes - My Orders Last 24 Hours: Active Orders 24 hr Category Date Time Status GLUCOSE POC LAB TO COLLECT JPM [POC] QIDACANDBED Lab 01/22/21 11:30 Ordered GLUCOSE POC LAB TO COLLECT JPM [POC] QIDACANDBED Lab 01/22/21 16:30 Ordered GLUCOSE POC LAB TO COLLECT JPM [POC] QIDACANDBED Lab 01/22/21 21:00 Ordered GLUCOSE POC LAB TO COLLECT JPM [POC] QIDACANDBED Lab 01/23/21 07:30 Ordered GLUCOSE POC LAB TO COLLECT JPM [POC] QIDACANDBED Lab 01/23/21 11:30 Ordered GLUCOSE POC LAB TO COLLECT JPM [POC] QIDACANDBED Lab 01/23/21 16:30 Ordered GLUCOSE POC LAB TO COLLECT JPM [POC] QIDACANDBED Lab 01/23/21 21:00 Ordered GLUCOSE POC LAB TO COLLECT JPM [POC] QIDACANDBED Lab 01/24/21 07:30 Ordered GLUCOSE POC LAB TO COLLECT JPM [POC] QIDACANDBED Lab 01/24/21 11:30 Ordered GLUCOSE POC LAB TO COLLECT JPM [POC] QIDACANDBED Lab 01/24/21 16:30 Ordered GLUCOSE POC LAB TO COLLECT JPM [POC] QIDACANDBED Lab 01/24/21 21:00 Ordered Insulin Glarg,Human.Rec.Analog [LantUS Solostar] Med 01/22/21 21:00 Active 14 units SUBCUT BEDTIME Convert IV to Saline Lock [OM.PC] Routine Oth 01/22/21 03:43 Ordered Medication Orders Acetaminophen (Acetaminophen 325 Mg Tab) 650 mg PO Q4H PRN PRN Reason: Pain/Fever Last Admin: 01/21/21 08:21 Dose: 650 mg Documented by: CHIP Hydrocodone Bitart/Acetaminophen (Acetaminophen/Hydrocodone 325-5 Mg Tab) 1 tab PO Q4H PRN PRN Reason: Pain (mild 1-3) Last Admin: 01/18/21 19:37 Dose: 1 tab Documented by: Admin: 01/18/21 14:47 Dose: 1 tab Documented by: Admin: 01/18/21 10:56 Dose: 1 tab Documented by: CHIP Amlodipine Besylate (Amlodipine 5 Mg Tab) 2.5 mg PO DAILY [facility] Last Admin: 01/21/21 08:29 Dose: 2.5 mg Documented by: Admin: 01/20/21 08:04 Dose: 2.5 mg Documented by: Admin: 01/19/21 08:05 Dose: 2.5 mg Documented by: MATT Bandage/Support Products (Nozin Nasal Fudger) 1 applic NASBOTH BID [facility] Last Admin: 01/21/21 21:12 Dose: 1 applic Documented by: Admin: 01/21/21 08:27 Dose: 1 applic Documented by: Admin: 01/20/21 21:21 Dose: 1 applic Documented by: Admin: 01/20/21 08:07 Dose: 1 applic Documented by: Admin: 01/19/21 21:32 Dose: 1 applic Documented by: Admin: 01/19/21 08:04 Dose: 1 applic Documented by: Admin: 01/18/21 19:59 Dose: 1 applic Documented by: ABIOLA Calcium Carbonate/Glycine (Calcium Carbonate 500 Mg Tab.Chew) 1,000 mg PO Q2H PRN PRN Reason: Indigestion Last Admin: 01/20/21 04:11 Dose: 1,000 mg Documented by: ABIOLA Dextrose (Glucose Gel 15 Gm In 37.5 Gm Tube) 15 gm PO ONETIME PRN PRN Reason: Hypoglycemia Dextrose/Water (50% Dextrose In Water 50 Ml Syringe) 50 ml IVPUSH ASDIRECTED PRN PRN Reason: Hypoglycemia Digoxin (Digoxin 125 Mcg Tab) 250 mcg PO DAILY@1300 [facility] Admin: 01/21/21 13:37 Dose: 250 mcg Documented by: Admin: 01/20/21 13:56 Dose: 250 mcg Documented by: Admin: 01/19/21 12:29 Dose: 250 mcg Documented by: MATT Docusate Sodium (Docusate Sodium 100 Mg Cap) 100 mg PO BID [facility] Admin: 01/21/21 21:10 Dose: 100 mg Documented by: Admin: 01/21/21 08:28 Dose: Not Given Documented by: Admin: 01/20/21 21:20 Dose: 100 mg Documented by: Admin: 01/20/21 08:04 Dose: 100 mg Documented by: Admin: 01/19/21 21:34 Dose: 100 mg Documented by: Admin: 01/19/21 08:04 Dose: 100 mg Documented by: Admin: 01/18/21 19:59 Dose: 100 mg Documented by: ABIOLA Enoxaparin Sodium (Enoxaparin 30 Mg/0.3 Ml Syringe) 30 mg SUBCUT DAILY [facility] Last Admin: 01/21/21 08:31 Dose: 30 mg Documented by: Admin: 01/20/21 08:05 Dose: 30 mg Documented by: Admin: 01/19/21 08:04 Dose: 30 mg Documented by: MATT Glucagon (Glucagon,Human Recombinant 1 Mg Vial) 1 mg IM ASDIRECTED PRN PRN Reason: Hypoglycemia Hydrochlorothiazide (Hydrochlorothiazide 25 Mg Tab) 25 mg PO DAILY [facility] Last Admin: 01/21/21 08:28 Dose: 25 mg Documented by: Admin: 01/20/21 08:05 Dose: 25 mg Documented by: Admin: 01/19/21 08:05 Dose: 25 mg Documented by: MATT Insulin Glargine (Insulin Glargine,Human Rec. Analog 100 Units/Ml 3 Ml Pen) 14 units SUBCUT BEDTIME [facility] Insulin Human Lispro (Insulin Lispro 100 Unit/Ml 3 Ml Kwikpen) 0 unit SUBCUT QIDACANDBED [facility]; Protocol Last Admin: 01/21/21 21:10 Dose: 2 unit Documented by: GARLAND Cosigned by: SURYA Admin: 01/21/21 16:52 Dose: Not Given Documented by: Admin: 01/21/21 13:34 Dose: 3 unit Documented by: CHIP Cosigned by: SHANTELL Admin: 01/21/21 08:22 Dose: 1 unit Documented by: CHIP Cosigned by: ABIGAIL Admin: 01/20/21 21:21 Dose: Not Given Documented by: Admin: 01/20/21 17:20 Dose: 2 unit Documented by: CHIP Cosigned by: KATHLEEN Admin: 01/20/21 13:54 Dose: 1 unit Documented by: CHIP Cosigned by: ROBERTO Admin: 01/20/21 08:07 Dose: Not Given Documented by: Admin: 01/19/21 21:36 Dose: Not Given Documented by: Admin: 01/19/21 17:31 Dose: 2 unit Documented by: MATT Israeligned by: ANGELIA Lactobacillus Rhamnosus (Lactobacillus Rhamnosus Gg (Probiotic) Cap) 1 cap PO BID [facility] Admin: 01/21/21 21:10 Dose: 1 cap Documented by: Admin: 01/21/21 10:49 Dose: 1 cap Documented by: Admin: 01/20/21 21:23 Dose: 1 cap Documented by: Admin: 01/20/21 18:13 Dose: 1 cap Documented by: CHIP Liraglutide (Liraglutide (Rdna Origin) 0.6 Mg/0.1 Ml 3 Ml Pen) 1.2 mg SUBCUT DAILY [facility] Last Admin: 01/21/21 08:32 Dose: 1.2 unit Documented by: Admin: 01/20/21 08:10 Dose: 1.2 unit Documented by: Admin: 01/19/21 08:06 Dose: 1.2 unit Documented by: MATT Lisinopril 20 mg/ Lisinopril (10 mg) 30 mg PO DAILY [facility] Last Admin: 01/21/21 08:28 Dose: 30 mg Documented by: Admin: 01/20/21 08:04 Dose: 30 mg Documented by: Admin: 01/19/21 08:05 Dose: 30 mg Documented by: MATT Magnesium Hydroxide (Magnesium Hydroxide 400 Mg/5 Ml Susp 30 Ml Cup) 30 ml PO BID PRN PRN Reason: Constipation Last Admin: 01/21/21 04:03 Dose: 30 ml Documented by: GARLAND Metformin HCl (Metformin 500 Mg Tab) 1,000 mg PO BIDMEALS [facility] Last Admin: 01/21/21 16:52 Dose: 1,000 mg Documented by: Admin: 01/21/21 08:22 Dose: 1,000 mg Documented by: Admin: 01/20/21 17:23 Dose: 1,000 mg Documented by: Admin: 01/20/21 08:03 Dose: 1,000 mg Documented by: Admin: 01/19/21 17:31 Dose: 1,000 mg Documented by: Admin: 01/19/21 07:43 Dose: 1,000 mg Documented by: Admin: 01/18/21 18:25 Dose: 1,000 mg Documented by: CHIP Morphine Sulfate (Morphine 2 Mg/Ml Syringe) 1 mg IVPUSH Q1H PRN PRN Reason: Breakthrough Pain Last Admin: 01/18/21 11:32 Dose: 1 mg Documented by: CHIP Ondansetron HCl (Ondansetron 4 Mg/2 Ml Sdv) 4 mg IVPUSH Q4H PRN PRN Reason: Nausea/Vomiting Oxycodone/Acetaminophen (Acetaminophen/Oxycodone 325-5 Mg Tab) 1 - 2 tab PO Q4H PRN PRN Reason: Pain Last Admin: 01/21/21 23:30 Dose: 2 tab Documented by: Admin: 01/21/21 18:38 Dose: 2 tab Documented by: Admin: 01/20/21 18:10 Dose: 1 tab Documented by: Admin: 01/20/21 09:49 Dose: 1 tab Documented by: Admin: 01/20/21 03:42 Dose: 1 tab Documented by: Admin: 01/19/21 14:29 Dose: 2 tab Documented by: Admin: 01/19/21 10:21 Dose: 1 tab Documented by: Admin: 01/19/21 05:34 Dose: 1 tab Documented by: Admin: 01/18/21 23:54 Dose: 1 tab Documented by: ABIOLA - Assessment Assessment (Free Text/Narrative):: Pleasant 85-year-old female, status post left total knee arthroplasty, postop day #4. No acute events overnight. Patient remains hemodynamically stable with vitals in an acceptable range. Postoperative anemia stable; patient denied dizziness, lightheadedness, dyspnea, nor vision changes. Does endorse feeling a bit fatigued this morning, attributed it to increased ambulation with therapy the day prior. Patient ambulation abilities improved; ambulated 15 feet with four-wheel walker and one moderate assist yesterday afternoon with physical therapy. Does require assistance with left leg transfer into and out of bed. Endorsed increased pain in left knee with ambulation, pain well controlled in knee at rest with oral pain medications. Patient denied nausea or emesis. Tolerates consistent carbohydrate diet, although overall decreased appetite. Tolerated protein shake yesterday. Blood sugars continue to fluctuate, with the highest reading at 284 in the past for 24 hours. Lantus dose was increased from 10 units to 14 units by hospitalist. Byers catheter was discontinued on POD#3; patient has been transferring from bed to commode with one moderate assist. Urine output over past 48 hours decreased. Dressing changed on left knee POD#2 and #4. IV saline locked POD#2. Patient requires inpatient status at this time for additional therapy services to progress functional mobility of left lower extremity. Also awaiting placement at SNF; multiple referrals faxed, no bed availabilities at this time. Exam: Left knee incision well approximated, steri-strips on top of the incision with dried drainage. No surrounding erythema nor active drainage. Mild warmth to touch of left knee. Postoperative swelling present on left knee, expanding into left thigh and calf. Ecchymosis present on left lower extremity. Flexion to 90 degrees. Negative Homans' sign. Left calf is swollen, nontender. Posterior tibial pulse, 2+. Sensation to LE intact. Plan: * Hospitalist to kindly continue medical management of patient. * Continue to monitor strict input and output of patient. * Continue with physical and occupational therapy services daily to progress ambulation abilities and functional mobility of left lower extremity. * Continue with current pain regimen. * Continue with 30 mg Lovenox subcutaneous daily and bilateral lower extremity SCDs for DVT/VTE prophylaxis. * Postoperative anemia remains stable; if patient becomes symptomatic may recheck a CBC. * Awaiting placement at assisted facility for additional rehab services. If unable to discharge to SNF today, will likely have to stay through the weekend until placement at SNF is available next week, as current functional mobility level is unsafe for patient to discharge home.
[2021-01-22] MEDS: Nozin Nasal Sanitizer NASBOTH SCH ×2 (08:19→21:03)
[2021-01-22] MEDS: Docusate Sodium 100 MG Cap PO SCH ×2 (08:19→21:00)
[2021-01-22] MEDS: metFORMIN 500 MG Tab PO SCH ×2 (08:19→17:35)
[2021-01-22] MEDS: Insulin Lispro 100 Unit/ML 3 ML KwikPen SUBCUT SCH ×4 (08:19→20:57)
[2021-01-22] MEDS: Hydrochlorothiazide 25 MG Tab PO SCH (08:20)
[2021-01-22] MEDS: Lactobacillus Rhamnosus GG (Probiotic) Cap PO SCH ×2 (08:20→20:59)
[2021-01-22] MEDS: amLODIPine 5 MG Tab PO SCH (08:20)
[2021-01-22] MEDS: Enoxaparin 30 MG/0.3 ML Syringe SUBCUT SCH (08:20)
[2021-01-22] MEDS: Liraglutide (rDNA Origin) 0.6 MG/0.1 ML 3 ML Pen SUBCUT SCH (08:21)
[2021-01-22] MEDS: Acetaminophen/oxyCODONE 325-5 MG Tab PO PRN ×3 (08:22→19:59)
[2021-01-22] MEDS: Digoxin 125 MCG Tab PO SCH (13:13)
--- NOTE | 2021-01-22 19:14 | PCM.CONSN ---
- General Info Date of Service: 01/22/21 Admission Dx/Problem (Free Text): Admission Diagnosis/Problem Admission Diagnosis/Problem Left Knee replacement Subjective Update: Ms. Ng is doing well today. She states that she has no complaints. She did tell me that she was able to get up and move around a little more with physical therapy today. He has continued to have an appetite. Her blood pressure was on the lower side but she did not experience any symptoms of this. Her blood sugars are better controlled today. Functional Status: Reports: Tolerating Diet, Ambulating. Denies: New Symptoms - Review of Systems General: Reports: No Symptoms, Appetite HEENT: Reports: No Symptoms Pulmonary: Reports: No Symptoms Cardiovascular: Reports: Orthopnea Gastrointestinal: Reports: No Symptoms Genitourinary: Reports: No Symptoms Musculoskeletal: Reports: Leg Pain Skin: Reports: No Symptoms Neurological: Reports: No Symptoms Psychiatric: Reports: No Symptoms - Patient Data Vitals - Most Recent: Last Vital Signs Temp 96.6 F L 01/22/21 12:36 Pulse 76 01/22/21 13:13 Resp 16 01/22/21 12:36 BP 102/34 L 01/22/21 12:36 Pulse Ox 98 01/22/21 12:36 Orthostatic Blood Pressure [ 125/62 Standing] Orthostatic Blood Pressure [ 107/45 Sitting] Orthostatic Blood Pressure [ 117/51 Supine] Weight - Most Recent: 118 lb 11.185 oz I&O - Last 24 Hours: Intake & Output 01/22/21 01/22/21 01/22/21 06:59 14:59 22:59 Intake Total 940 Output Total 250 Balance 690 Lab Results Last 24 Hours: Laboratory Results - last 24 hr 01/21/21 01/22/21 01/22/21 Range/Units 20:56 07:17 11:18 POC Glucose 225 H 171 H 141 H (74-106) mg/dL 01/22/21 Range/Units 16:25 POC Glucose 170 H (74-106) mg/dL Med Orders - Current: Current Medications Acetaminophen (Acetaminophen 325 Mg Tab) 650 mg PO Q4H PRN PRN Reason: Pain/Fever Last Admin: 01/21/21 08:21 Dose: 650 mg Documented by: Hydrocodone Bitart/Acetaminophen (Acetaminophen/Hydrocodone 325-5 Mg Tab) 1 tab PO Q4H PRN PRN Reason: Pain (mild 1-3) Last Admin: 01/18/21 19:37 Dose: 1 tab Documented by: Amlodipine Besylate (Amlodipine 5 Mg Tab) 2.5 mg PO DAILY [facility] Last Admin: 01/22/21 08:20 Dose: 2.5 mg Documented by: Bandage/Support Products (Nozin Nasal Poker Prop Player) 1 applic NASBOTH BID [facility] Stop: 01/24/21 21:01 Last Admin: 01/22/21 08:19 Dose: 1 applic Documented by: Calcium Carbonate/Glycine (Calcium Carbonate 500 Mg Tab.Chew) 1,000 mg PO Q2H PRN PRN Reason: Indigestion Last Admin: 01/20/21 04:11 Dose: 1,000 mg Documented by: Dextrose (Glucose Gel 15 Gm In 37.5 Gm Tube) 15 gm PO ONETIME PRN PRN Reason: Hypoglycemia Dextrose/Water (50% Dextrose In Water 50 Ml Syringe) 50 ml IVPUSH ASDIRECTED PRN PRN Reason: Hypoglycemia Digoxin (Digoxin 125 Mcg Tab) 250 mcg PO DAILY@1300 [facility] Last Admin: 01/22/21 13:13 Dose: 250 mcg Documented by: Docusate Sodium (Docusate Sodium 100 Mg Cap) 100 mg PO BID [facility] Last Admin: 01/22/21 08:19 Dose: 100 mg Documented by: Enoxaparin Sodium (Enoxaparin 30 Mg/0.3 Ml Syringe) 30 mg SUBCUT DAILY [facility] Last Admin: 01/22/21 08:20 Dose: 30 mg Documented by: Glucagon (Glucagon,Human Recombinant 1 Mg Vial) 1 mg IM ASDIRECTED PRN PRN Reason: Hypoglycemia Hydrochlorothiazide (Hydrochlorothiazide 25 Mg Tab) 25 mg PO DAILY [facility] Last Admin: 01/22/21 08:20 Dose: 25 mg Documented by: Insulin Glargine (Insulin Glargine,Human Rec. Analog 100 Units/Ml 3 Ml Pen) 16 units SUBCUT BEDTIME [facility] Insulin Human Lispro (Insulin Lispro 100 Unit/Ml 3 Ml Kwikpen) 0 unit SUBCUT QIDACANDBED [facility]; Protocol Last Admin: 01/22/21 17:35 Dose: 1 unit Documented by: Lactobacillus Rhamnosus (Lactobacillus Rhamnosus Gg (Probiotic) Cap) 1 cap PO BID [facility] Last Admin: 01/22/21 08:20 Dose: 1 cap Documented by: Liraglutide (Liraglutide (Rdna Origin) 0.6 Mg/0.1 Ml 3 Ml Pen) 1.2 mg SUBCUT DAILY [facility] Last Admin: 01/22/21 08:21 Dose: 1.2 mg Documented by: Lisinopril (Lisinopril 20 Mg Tab) 10 mg PO DAILY [facility] Magnesium Hydroxide (Magnesium Hydroxide 400 Mg/5 Ml Susp 30 Ml Cup) 30 ml PO BID PRN PRN Reason: Constipation Last Admin: 01/21/21 04:03 Dose: 30 ml Documented by: Metformin HCl (Metformin 500 Mg Tab) 1,000 mg PO BIDMEALS [facility] Last Admin: 01/22/21 17:35 Dose: 1,000 mg Documented by: Morphine Sulfate (Morphine 2 Mg/Ml Syringe) 1 mg IVPUSH Q1H PRN PRN Reason: Breakthrough Pain Last Admin: 01/18/21 11:32 Dose: 1 mg Documented by: Ondansetron HCl (Ondansetron 4 Mg/2 Ml Sdv) 4 mg IVPUSH Q4H PRN PRN Reason: Nausea/Vomiting Oxycodone/Acetaminophen (Acetaminophen/Oxycodone 325-5 Mg Tab) 1 - 2 tab PO Q4H PRN PRN Reason: Pain Last Admin: 01/22/21 12:36 Dose: 1 tab Documented by: Discontinued Medications Albuterol/Ipratropium (Albuterol/Ipratropium 3.0-0.5 Mg/3 Ml Neb Soln) 3 ml NEB ONETIME ONE Stop: 01/18/21 07:36 Last Admin: 01/18/21 07:43 Dose: 3 ml Documented by: Bandage/Support Products (Nozin Nasal Poker Prop Player) 1 applic NASBOTH BID [facility] Last Admin: 01/18/21 06:43 Dose: 1 applic Documented by: Dextrose/Water (50% Dextrose In Water 50 Ml Syringe) 50 ml IVPUSH ASDIRECTED PRN PRN Reason: Hypoglycemia Fentanyl (Fentanyl 100 Mcg/2 Ml Sdv) Confirm Administered Dose 100 mcg .ROUTE .STK-MED ONE Stop: 01/18/21 07:51 Glucagon (Glucagon,Human Recombinant 1 Mg Vial) 1 mg IM ASDIRECTED PRN PRN Reason: Hypoglycemia Cefazolin Sodium/Dextrose (Ancef 2 Gm/50 Ml) 50 mls @ 100 mls/hr IV ONETIME ONE Stop: 01/18/21 06:29 Last Admin: 01/18/21 07:50 Dose: 100 mls/hr Documented by: Lactated Ringer's (Ringers, Lactated) 1,000 mls @ 75 mls/hr IV ASDIRECTED [facility] Last Admin: 01/18/21 06:42 Dose: 75 mls/hr Documented by: Lactated Ringer's (Ringers, Lactated) Confirm Administered Dose 1,000 mls @ as directed .ROUTE .STK-MED ONE Stop: 01/18/21 08:33 Sodium Chloride (Normal Saline) 1,000 mls @ 125 mls/hr IV ASDIRECTED [facility] Last Admin: 01/19/21 04:34 Dose: 125 mls/hr Documented by: Cefazolin Sodium/Dextrose 1 gm (/ Premix) 50 mls @ 200 mls/hr IV Q8H [facility] Stop: 01/19/21 06:14 Last Admin: 01/19/21 05:31 Dose: 200 mls/hr Documented by: Insulin Glargine (Insulin Glargine,Human Rec. Analog 100 Units/Ml 3 Ml Pen) 5 units SUBCUT BEDTIME [facility] Last Admin: 01/18/21 21:18 Dose: 5 units Documented by: Insulin Glargine (Insulin Glargine,Human Rec. Analog 100 Units/Ml 3 Ml Pen) 10 units SUBCUT BEDTIME [facility] Last Admin: 01/21/21 21:11 Dose: 10 units Documented by: Insulin Glargine (Insulin Glargine,Human Rec. Analog 100 Units/Ml 3 Ml Pen) 14 units SUBCUT BEDTIME [facility] Insulin Glargine (Insulin Glargine,Human Rec. Analog 100 Units/Ml 3 Ml Pen) 4 units SUBCUT BID ONE Stop: 01/21/21 22:01 Last Admin: 01/21/21 23:26 Dose: 4 units Documented by: Insulin Human Lispro (Insulin Lispro 100 Unit/Ml 3 Ml Kwikpen) 1 unit SUBCUT QIDACANDBED [facility]; Protocol Stop: 01/18/21 19:00 Last Admin: 01/19/21 00:30 Dose: Not Given Documented by: Insulin Human Lispro (Insulin Lispro 100 Unit/Ml 3 Ml Kwikpen) 0 unit SUBCUT QIDACANDBED [facility]; Protocol Stop: 01/22/21 20:00 Last Admin: 01/19/21 07:43 Dose: 1 units Documented by: Lisinopril 20 mg/ Lisinopril (10 mg) 30 mg PO DAILY [facility] Last Admin: 01/22/21 08:21 Dose: 30 mg Documented by: Midazolam HCl (Midazolam 1 Mg/Ml 2 Ml Sdv) Confirm Administered Dose 2 mg .ROUTE .STK-MED ONE Stop: 01/18/21 07:51 Non-Formulary Medication (Lisinopril [Lisinopril]) 30 mg PO DAILY [facility] Povidone Iodine (Povidone-Iodine 10% Soln 118.25 Ml Bottle) Confirm Administered Dose 1 ml .ROUTE .STK-MED ONE Stop: 01/18/21 06:46 Last Admin: 01/18/21 08:25 Dose: 30 ml Documented by: Propofol (Propofol 200 Mg/20 Ml Sdv) Confirm Administered Dose 200 mg .ROUTE .STK-MED ONE Stop: 01/18/21 07:51 - Exam Urinary Catheter Total Time: 3Days 10Hours General: Alert, Oriented, Cooperative, No Acute Distress HEENT: Pupils Equal, EOMI, Mucous Membr. Moist/[place] Neck: Supple, Trachea Midline Lungs: Clear to Auscultation, Normal Respiratory Effort Cardiovascular: Regular Rate, Regular Rhythm GI/Abdominal Exam: Normal Bowel Sounds, Soft, Non-Tender, No Distention Back Exam: Normal Inspection Extremities: Pedal Edema, Joint Swelling, Other (Swelling and bruising on the left leg secondary to operation) Skin: Warm, Dry, Intact, Ecchymosis (Of the left lower extremity) Neurological: No New Focal Deficit Psy/Mental Status: Alert, Normal Affect, Normal Mood Sepsis Event Note - Evaluation Sepsis Screening Result: No Definite Risk - Focused Exam Vital Signs: Vital Signs Temp Pulse Pulse Resp BP BP Pulse Ox 01/22/21 13:13 76 01/22/21 12:36 96.6 F L 79 16 102/34 L 98 01/22/21 08:21 129/44 L 01/22/21 08:20 129/44 L 01/22/21 08:17 97.2 F 78 16 129/44 L 95 Consult PN Assessment/Plan POD#: 4 Procedures: Procedures ASSAY OF DIGOXIN TOTAL (01/06/20) ASSAY OF TROPONIN QUANT (11/13/17) COMPLETE CBC AUTOMATED (11/13/17) COMPLETE CBC W/AUTO DIFF WBC (01/06/20) COMPREHEN METABOLIC PANEL (01/06/20) CT HEAD/BRAIN W/O DYE (11/13/17) DRAIN/INJ JOINT/BURSA W/O US (10/20/20) ECG MONIT/REPRT UP TO 48 HRS (11/15/17) ECG MONIT/REPRT UP TO 48 HRS (11/15/17) ELECTROCARDIOGRAM TRACING (01/06/20) EMERGENCY DEPT VISIT (01/06/20) EMERGENCY DEPT VISIT (11/13/17) EXTRACRANIAL BILAT STUDY (11/15/17) GAIT TRAINING THERAPY (01/06/20) GLUCOSE BLOOD TEST (01/06/20) INSERT TEMP BLADDER CATH (01/06/20) METABOLIC PANEL TOTAL CA (01/06/20) OFFICE O/P EST LOW 20-29 MIN (10/20/20) OT EVAL LOW COMPLEX 30 MIN (01/06/20) POSTOP FOLLOW-UP VISIT (01/21/20) PT EVAL LOW COMPLEX 20 MIN (01/06/20) PT EVALUATION (01/12/15) ROUTINE VENIPUNCTURE (01/06/20) THERAPEUTIC ACTIVITIES (01/06/20) THERAPEUTIC EXERCISES (01/06/20) TTE W/DOPPLER COMPLETE (07/16/15) URINALYSIS AUTO W/SCOPE (01/06/20) URINE CULTURE/COLONY COUNT (11/13/17) X-RAY EXAM CHEST 1 VIEW (01/06/20) X-RAY EXAM HIP UNI 1 VIEW (02/11/20) X-RAY EXAM HIP UNI 2-3 VIEWS (01/06/20) X-RAY EXAM OF KNEE 3 (10/20/20) X-RAY EXAM OF KNEES (10/20/20) (1) Status post left knee replacement SNOMED Code(s): 2373494502409, 132865631, 3042784054309 Code(s): Z96.652 - PRESENCE OF LEFT ARTIFICIAL KNEE JOINT Current Visit: Yes (2) Diabetes mellitus SNOMED Code(s): 86911369 Code(s): E11.9 - TYPE 2 DIABETES MELLITUS WITHOUT COMPLICATIONS Current Visit: No Problem List Initiated/Reviewed/Updated: Yes My Orders Last 24 Hours: My Active Orders 01/22/21 21:00 Insulin Glarg,Human.Rec.Analog [LantUS Solostar] 16 units SUBCUT BEDTIME 01/23/21 09:00 lisinopriL [Prinivil] 10 mg PO DAILY Plan: Diabetes mellitus type II -We are getting better control of the blood glucose however the blood sugar remains elevated from 1 40-1 70. Will increase Lantus from 14 to 16 units tonight and continue to monitor -Continue sliding scale insulin as needed with meals Essential hypertension -At home she normally takes hydrochlorothiazide 25 mg, Norvasc 2.5 mg, and lisinopril 30 mg -Her blood pressures have been on the lower side and given her age she can tolerate a higher blood pressure therefore I have decreased her lisinopril to 10 mg as of today -Continue hydrochlorothiazide 25 mg and Norvasc 2.5 mg daily Status post left knee replacement -Management per surgical team Plan: We will decrease the lisinopril and hopefully her blood pressure will not become too elevated. She has not had any elevations in blood pressure beyond 130 since she has been here. Will monitor. Erin David,
[2021-01-22] MEDS ORDERED: Insulin Glargine,Human Rec. Analog 100 Units/ML 3 ML Pen SUBCUT SCH (21:00)
[2021-01-22] MEDS: Insulin Glargine,Human Rec. Analog 100 Units/ML 3 ML Pen SUBCUT SCH (21:05)
[2021-01-23] MEDS: Acetaminophen/oxyCODONE 325-5 MG Tab PO PRN ×2 (07:48→12:51)
[2021-01-23] MEDS: metFORMIN 500 MG Tab PO SCH ×2 (07:51→16:40)
[2021-01-23] MEDS: Insulin Lispro 100 Unit/ML 3 ML KwikPen SUBCUT SCH ×4 (07:52→21:25)
[2021-01-23] MEDS: Nozin Nasal Sanitizer NASBOTH SCH ×2 (08:09→21:26)
[2021-01-23] MEDS: amLODIPine 5 MG Tab PO SCH (08:10)
[2021-01-23] MEDS: Enoxaparin 30 MG/0.3 ML Syringe SUBCUT SCH (08:10)
[2021-01-23] MEDS: Lactobacillus Rhamnosus GG (Probiotic) Cap PO SCH ×2 (08:10→21:27)
[2021-01-23] MEDS: Lisinopril 10 MG Tab PO SCH (08:10)
[2021-01-23] MEDS: Hydrochlorothiazide 25 MG Tab PO SCH (08:11)
[2021-01-23] MEDS: Docusate Sodium 100 MG Cap PO SCH ×2 (08:11→21:26)
[2021-01-23] MEDS: Liraglutide (rDNA Origin) 0.6 MG/0.1 ML 3 ML Pen SUBCUT SCH (10:15)
[2021-01-23] MEDS: Digoxin 125 MCG Tab PO SCH (12:11)
--- NOTE | 2021-01-23 20:15 | PCM.CONSN ---
- General Info Date of Service: 01/23/21 Admission Dx/Problem (Free Text): Admission Diagnosis/Problem Admission Diagnosis/Problem Left Knee replacement Subjective Update: No events overnight. She states that she did more with PT today and believes that the swelling in her leg has gone down. She does have pretty extensive bruising on the posterior aspect of the left leg and we did discuss that this may take a while to go away. She states that she has been rubbing it gently to help the process along. Functional Status: Reports: Pain Controlled, Tolerating Diet, Ambulating. Denies: New Symptoms - Review of Systems General: Reports: No Symptoms HEENT: Reports: No Symptoms Pulmonary: Reports: No Symptoms Cardiovascular: Reports: No Symptoms Gastrointestinal: Reports: No Symptoms Genitourinary: Reports: No Symptoms Musculoskeletal: Reports: Joint Swelling Skin: Reports: Bruising Neurological: Reports: No Symptoms Psychiatric: Reports: No Symptoms - Patient Data Vitals - Most Recent: Last Vital Signs Temp 98.7 F 01/23/21 18:21 Pulse 86 01/23/21 18:21 Resp 18 01/23/21 18:21 BP 123/51 L 01/23/21 18:21 Pulse Ox 94 L 01/23/21 18:21 Orthostatic Blood Pressure [ 125/62 Standing] Orthostatic Blood Pressure [ 107/45 Sitting] Orthostatic Blood Pressure [ 117/51 Supine] Weight - Most Recent: 118 lb 11.185 oz I&O - Last 24 Hours: Intake & Output 01/23/21 01/23/21 01/23/21 06:59 14:59 22:59 Intake Total 240 150 Balance 240 150 Lab Results Last 24 Hours: Laboratory Results - last 24 hr 01/22/21 01/23/21 01/23/21 Range/Units 20:46 05:45 05:45 WBC 10.6 (4.5-11.0) K/uL RBC 3.41 (3.30-5.50) M/uL Hgb 10.2 L (12.0-15.0) g/dL Hct 29.8 L (36.0-48.0) % MCV 87 (80-98) fL MCH 30 (27-31) pg MCHC 34 (32-36) % Plt Count 316 (150-400) K/uL Sodium 136 L (140-148) mmol/L Potassium 3.6 (3.6-5.2) mmol/L Chloride 97 L (100-108) mmol/L Carbon Dioxide 31 (21-32) mmol/L Anion Gap 11.6 (5.0-14.0) mmol/L BUN 14 (7-18) mg/dL Creatinine 0.6 (0.6-1.0) mg/dL Est Cr Clr Drug Dosing 57.72 mL/min Estimated GFR (MDRD) > 60 (>60) Glucose 92 (74-106) mg/dL POC Glucose 128 H (74-106) mg/dL Calcium 8.8 (8.5-10.1) mg/dL 01/23/21 01/23/21 01/23/21 Range/Units 07:33 11:31 16:18 WBC (4.5-11.0) K/uL RBC (3.30-5.50) M/uL Hgb (12.0-15.0) g/dL Hct (36.0-48.0) % MCV (80-98) fL MCH (27-31) pg MCHC (32-36) % Plt Count (150-400) K/uL Sodium (140-148) mmol/L Potassium (3.6-5.2) mmol/L Chloride (100-108) mmol/L Carbon Dioxide (21-32) mmol/L Anion Gap (5.0-14.0) mmol/L BUN (7-18) mg/dL Creatinine (0.6-1.0) mg/dL Est Cr Clr Drug Dosing mL/min Estimated GFR (MDRD) (>60) Glucose (74-106) mg/dL POC Glucose 93 172 H 121 H (74-106) mg/dL Calcium (8.5-10.1) mg/dL Med Orders - Current: Current Medications Acetaminophen (Acetaminophen 325 Mg Tab) 650 mg PO Q4H PRN PRN Reason: Pain/Fever Last Admin: 01/21/21 08:21 Dose: 650 mg Documented by: Hydrocodone Bitart/Acetaminophen (Acetaminophen/Hydrocodone 325-5 Mg Tab) 1 tab PO Q4H PRN PRN Reason: Pain (mild 1-3) Last Admin: 01/18/21 19:37 Dose: 1 tab Documented by: Amlodipine Besylate (Amlodipine 5 Mg Tab) 2.5 mg PO DAILY [facility] Last Admin: 01/23/21 08:10 Dose: 2.5 mg Documented by: Bandage/Support Products (Nozin Nasal Sectionizer) 1 applic NASBOTH BID [facility] Stop: 01/24/21 21:01 Last Admin: 01/23/21 08:09 Dose: 1 applic Documented by: Calcium Carbonate/Glycine (Calcium Carbonate 500 Mg Tab.Chew) 1,000 mg PO Q2H PRN PRN Reason: Indigestion Last Admin: 01/20/21 04:11 Dose: 1,000 mg Documented by: Dextrose (Glucose Gel 15 Gm In 37.5 Gm Tube) 15 gm PO ONETIME PRN PRN Reason: Hypoglycemia Dextrose/Water (50% Dextrose In Water 50 Ml Syringe) 50 ml IVPUSH ASDIRECTED PRN PRN Reason: Hypoglycemia Digoxin (Digoxin 125 Mcg Tab) 250 mcg PO DAILY@1300 [facility] Last Admin: 01/23/21 12:11 Dose: 250 mcg Documented by: Docusate Sodium (Docusate Sodium 100 Mg Cap) 100 mg PO BID [facility] Last Admin: 01/23/21 08:11 Dose: 100 mg Documented by: Enoxaparin Sodium (Enoxaparin 30 Mg/0.3 Ml Syringe) 30 mg SUBCUT DAILY [facility] Last Admin: 01/23/21 08:10 Dose: 30 mg Documented by: Glucagon (Glucagon,Human Recombinant 1 Mg Vial) 1 mg IM ASDIRECTED PRN PRN Reason: Hypoglycemia Hydrochlorothiazide (Hydrochlorothiazide 25 Mg Tab) 25 mg PO DAILY [facility] Last Admin: 01/23/21 08:11 Dose: 25 mg Documented by: Insulin Glargine (Insulin Glargine,Human Rec. Analog 100 Units/Ml 3 Ml Pen) 16 units SUBCUT BEDTIME [facility] Last Admin: 01/22/21 21:05 Dose: 16 units Documented by: Insulin Human Lispro (Insulin Lispro 100 Unit/Ml 3 Ml Kwikpen) 0 unit SUBCUT QIDACANDBED [facility]; Protocol Last Admin: 01/23/21 16:38 Dose: Not Given Documented by: Lactobacillus Rhamnosus (Lactobacillus Rhamnosus Gg (Probiotic) Cap) 1 cap PO BID [facility] Last Admin: 01/23/21 08:10 Dose: 1 cap Documented by: Liraglutide (Liraglutide (Rdna Origin) 0.6 Mg/0.1 Ml 3 Ml Pen) 1.2 mg SUBCUT DAILY [facility] Last Admin: 01/23/21 10:15 Dose: 1.2 mg Documented by: Lisinopril (Lisinopril 10 Mg Tab) 10 mg PO DAILY [facility] Last Admin: 01/23/21 08:10 Dose: 10 mg Documented by: Magnesium Hydroxide (Magnesium Hydroxide 400 Mg/5 Ml Susp 30 Ml Cup) 30 ml PO BID PRN PRN Reason: Constipation Last Admin: 01/21/21 04:03 Dose: 30 ml Documented by: Metformin HCl (Metformin 500 Mg Tab) 1,000 mg PO BIDMEALS [facility] Last Admin: 01/23/21 16:40 Dose: 1,000 mg Documented by: Morphine Sulfate (Morphine 2 Mg/Ml Syringe) 1 mg IVPUSH Q1H PRN PRN Reason: Breakthrough Pain Last Admin: 01/18/21 11:32 Dose: 1 mg Documented by: Ondansetron HCl (Ondansetron 4 Mg/2 Ml Sdv) 4 mg IVPUSH Q4H PRN PRN Reason: Nausea/Vomiting Oxycodone/Acetaminophen (Acetaminophen/Oxycodone 325-5 Mg Tab) 1 - 2 tab PO Q4H PRN PRN Reason: Pain Last Admin: 01/23/21 12:51 Dose: 1 tab Documented by: Discontinued Medications Albuterol/Ipratropium (Albuterol/Ipratropium 3.0-0.5 Mg/3 Ml Neb Soln) 3 ml NEB ONETIME ONE Stop: 01/18/21 07:36 Last Admin: 01/18/21 07:43 Dose: 3 ml Documented by: Bandage/Support Products (Nozin Nasal Sectionizer) 1 applic NASBOTH BID [facility] Last Admin: 01/18/21 06:43 Dose: 1 applic Documented by: Dextrose/Water (50% Dextrose In Water 50 Ml Syringe) 50 ml IVPUSH ASDIRECTED PRN PRN Reason: Hypoglycemia Fentanyl (Fentanyl 100 Mcg/2 Ml Sdv) Confirm Administered Dose 100 mcg .ROUTE .STK-MED ONE Stop: 01/18/21 07:51 Glucagon (Glucagon,Human Recombinant 1 Mg Vial) 1 mg IM ASDIRECTED PRN PRN Reason: Hypoglycemia Cefazolin Sodium/Dextrose (Ancef 2 Gm/50 Ml) 50 mls @ 100 mls/hr IV ONETIME ONE Stop: 01/18/21 06:29 Last Admin: 01/18/21 07:50 Dose: 100 mls/hr Documented by: Lactated Ringer's (Ringers, Lactated) 1,000 mls @ 75 mls/hr IV ASDIRECTED [facility] Last Admin: 01/18/21 06:42 Dose: 75 mls/hr Documented by: Lactated Ringer's (Ringers, Lactated) Confirm Administered Dose 1,000 mls @ as directed .ROUTE .STK-MED ONE Stop: 01/18/21 08:33 Sodium Chloride (Normal Saline) 1,000 mls @ 125 mls/hr IV ASDIRECTED [facility] Last Admin: 01/19/21 04:34 Dose: 125 mls/hr Documented by: Cefazolin Sodium/Dextrose 1 gm (/ Premix) 50 mls @ 200 mls/hr IV Q8H [facility] Stop: 01/19/21 06:14 Last Admin: 01/19/21 05:31 Dose: 200 mls/hr Documented by: Insulin Glargine (Insulin Glargine,Human Rec. Analog 100 Units/Ml 3 Ml Pen) 5 units SUBCUT BEDTIME [facility] Last Admin: 01/18/21 21:18 Dose: 5 units Documented by: Insulin Glargine (Insulin Glargine,Human Rec. Analog 100 Units/Ml 3 Ml Pen) 10 units SUBCUT BEDTIME [facility] Last Admin: 01/21/21 21:11 Dose: 10 units Documented by: Insulin Glargine (Insulin Glargine,Human Rec. Analog 100 Units/Ml 3 Ml Pen) 14 units SUBCUT BEDTIME [facility] Insulin Glargine (Insulin Glargine,Human Rec. Analog 100 Units/Ml 3 Ml Pen) 4 units SUBCUT BID ONE Stop: 01/21/21 22:01 Last Admin: 01/21/21 23:26 Dose: 4 units Documented by: Insulin Human Lispro (Insulin Lispro 100 Unit/Ml 3 Ml Kwikpen) 1 unit SUBCUT QIDACANDBED [facility]; Protocol Stop: 01/18/21 19:00 Last Admin: 01/19/21 00:30 Dose: Not Given Documented by: Insulin Human Lispro (Insulin Lispro 100 Unit/Ml 3 Ml Kwikpen) 0 unit SUBCUT QIDACANDBED [facility]; Protocol Stop: 01/22/21 20:00 Last Admin: 01/19/21 07:43 Dose: 1 units Documented by: Lisinopril 20 mg/ Lisinopril (10 mg) 30 mg PO DAILY [facility] Last Admin: 01/22/21 08:21 Dose: 30 mg Documented by: Midazolam HCl (Midazolam 1 Mg/Ml 2 Ml Sdv) Confirm Administered Dose 2 mg .ROUTE .STK-MED ONE Stop: 01/18/21 07:51 Non-Formulary Medication (Lisinopril [Lisinopril]) 30 mg PO DAILY [facility] Povidone Iodine (Povidone-Iodine 10% Soln 118.25 Ml Bottle) Confirm Administered Dose 1 ml .ROUTE .STK-MED ONE Stop: 01/18/21 06:46 Last Admin: 01/18/21 08:25 Dose: 30 ml Documented by: Propofol (Propofol 200 Mg/20 Ml Sdv) Confirm Administered Dose 200 mg .ROUTE .STK-MED ONE Stop: 01/18/21 07:51 - Exam Urinary Catheter Total Time: 3Days 10Hours General: Alert, Oriented, Cooperative, No Acute Distress HEENT: Pupils Equal, EOMI, Mucous Membr. Moist/[place] Neck: Supple, Trachea Midline Lungs: Clear to Auscultation, Normal Respiratory Effort Cardiovascular: Regular Rate, Regular Rhythm GI/Abdominal Exam: Normal Bowel Sounds, Soft, Non-Tender, No Distention Back Exam: Normal Inspection Extremities: Other (Edema of the left lower extremity with significant posterior ecchymoses on the upper and lower limb, very mild pedal edema on the right) Skin: Warm, Dry, Intact, Ecchymosis Wound/Incisions: Healing Well Neurological: No New Focal Deficit Psy/Mental Status: Alert, Normal Affect, Normal Mood Sepsis Event Note - Evaluation Sepsis Screening Result: No Definite Risk - Focused Exam Vital Signs: Vital Signs Temp Pulse Pulse Resp BP Pulse Ox 01/23/21 18:21 98.7 F 86 18 123/51 L 94 L 01/23/21 16:00 97.6 F 70 18 130/54 L 98 01/23/21 12:11 86 01/23/21 11:49 98.6 F 86 18 111/64 100 Consult PN Assessment/Plan POD#: 5 Procedures: Procedures ASSAY OF DIGOXIN TOTAL (01/06/20) ASSAY OF TROPONIN QUANT (11/13/17) COMPLETE CBC AUTOMATED (11/13/17) COMPLETE CBC W/AUTO DIFF WBC (01/06/20) COMPREHEN METABOLIC PANEL (01/06/20) CT HEAD/BRAIN W/O DYE (11/13/17) DRAIN/INJ JOINT/BURSA W/O US (10/20/20) ECG MONIT/REPRT UP TO 48 HRS (11/15/17) ECG MONIT/REPRT UP TO 48 HRS (11/15/17) ELECTROCARDIOGRAM TRACING (01/06/20) EMERGENCY DEPT VISIT (01/06/20) EMERGENCY DEPT VISIT (11/13/17) EXTRACRANIAL BILAT STUDY (11/15/17) GAIT TRAINING THERAPY (01/06/20) GLUCOSE BLOOD TEST (01/06/20) INSERT TEMP BLADDER CATH (01/06/20) METABOLIC PANEL TOTAL CA (01/06/20) OFFICE O/P EST LOW 20-29 MIN (10/20/20) OT EVAL LOW COMPLEX 30 MIN (01/06/20) POSTOP FOLLOW-UP VISIT (01/21/20) PT EVAL LOW COMPLEX 20 MIN (01/06/20) PT EVALUATION (01/12/15) ROUTINE VENIPUNCTURE (01/06/20) THERAPEUTIC ACTIVITIES (01/06/20) THERAPEUTIC EXERCISES (01/06/20) TTE W/DOPPLER COMPLETE (07/16/15) URINALYSIS AUTO W/SCOPE (01/06/20) URINE CULTURE/COLONY COUNT (11/13/17) X-RAY EXAM CHEST 1 VIEW (01/06/20) X-RAY EXAM HIP UNI 1 VIEW (02/11/20) X-RAY EXAM HIP UNI 2-3 VIEWS (01/06/20) X-RAY EXAM OF KNEE 3 (10/20/20) X-RAY EXAM OF KNEES (10/20/20) (1) Status post left knee replacement SNOMED Code(s): 3975934936409, 013643017, [id number] Code(s): Z96.652 - PRESENCE OF LEFT ARTIFICIAL KNEE JOINT Current Visit: Yes (2) Diabetes mellitus SNOMED Code(s): 64774144 Code(s): E11.9 - TYPE 2 DIABETES MELLITUS WITHOUT COMPLICATIONS Current Visit: No Problem List Initiated/Reviewed/Updated: Yes My Orders Last 24 Hours: My Active Orders 01/22/21 21:00 Insulin Glarg,Human.Rec.Analog [LantUS Solostar] 16 units SUBCUT BEDTIME 01/23/21 09:00 lisinopriL [Prinivil] 10 mg PO DAILY Plan: Diabetes mellitus type II -Lantus 16 units at bedtime -Continue sliding scale insulin as needed with meals Essential hypertension -At home she normally takes hydrochlorothiazide 25 mg, Norvasc 2.5 mg, and lisinopril 30 mg -We are giving her hydrochlorothiazide 25 mg, Norvasc 2.5 mg, and lisinopril 10 mg -She will likely not need to go home on 30 mg lisinopril and just the 10 mg that seems to be adequately controlling her blood pressures Status post left knee replacement -Management per surgical team Plan: Her blood sugars and blood pressure are well controlled. We are waiting for placement which will likely take place on Monday or Monday. Erin David, DO
[2021-01-23] MEDS: Insulin Glargine,Human Rec. Analog 100 Units/ML 3 ML Pen SUBCUT SCH (21:24)
[2021-01-24] MEDS: Acetaminophen/oxyCODONE 325-5 MG Tab PO PRN ×2 (00:29→18:47)
[2021-01-24] MEDS: Insulin Lispro 100 Unit/ML 3 ML KwikPen SUBCUT SCH ×4 (08:05→21:43)
[2021-01-24] MEDS: Hydrochlorothiazide 25 MG Tab PO SCH (08:25)
[2021-01-24] MEDS: metFORMIN 500 MG Tab PO SCH ×2 (08:25→17:50)
[2021-01-24] MEDS: Nozin Nasal Sanitizer NASBOTH SCH ×2 (08:25→20:07)
[2021-01-24] MEDS: Enoxaparin 30 MG/0.3 ML Syringe SUBCUT SCH (08:26)
[2021-01-24] MEDS: Lisinopril 10 MG Tab PO SCH (08:26)
[2021-01-24] MEDS: Liraglutide (rDNA Origin) 0.6 MG/0.1 ML 3 ML Pen SUBCUT SCH (08:27)
[2021-01-24] MEDS: Lactobacillus Rhamnosus GG (Probiotic) Cap PO SCH ×2 (08:27→20:07)
[2021-01-24] MEDS: amLODIPine 5 MG Tab PO SCH (08:27)
[2021-01-24] MEDS: Docusate Sodium 100 MG Cap PO SCH ×2 (08:27→20:07)
[2021-01-24] MEDS: Digoxin 125 MCG Tab PO SCH (12:46)
--- NOTE | 2021-01-24 20:21 | PCM.CONSN ---
- General Info Date of Service: 01/24/21 Admission Dx/Problem (Free Text): Admission Diagnosis/Problem Admission Diagnosis/Problem Left Knee replacement Subjective Update: Ms. Ng was doing well today. She had no complaints. The swelling in her leg continues to improve. Her blood pressure and blood glucose have been under control today. Functional Status: Reports: Pain Controlled, Tolerating Diet, Ambulating, Urinating. Denies: New Symptoms - Review of Systems General: Reports: No Symptoms HEENT: Reports: No Symptoms Pulmonary: Reports: No Symptoms Cardiovascular: Reports: No Symptoms Gastrointestinal: Reports: No Symptoms Genitourinary: Reports: No Symptoms Musculoskeletal: Reports: Joint Swelling, Other (Left lower extremity swelling from the knee down, the thigh is no longer swollen) Skin: Reports: Bruising Neurological: Reports: No Symptoms Psychiatric: Reports: No Symptoms - Patient Data Vitals - Most Recent: Last Vital Signs Temp 100.4 F 01/24/21 19:00 Pulse 95 01/24/21 19:00 Resp 16 01/24/21 19:00 BP 122/56 L 01/24/21 19:00 Pulse Ox 98 01/24/21 19:00 Orthostatic Blood Pressure [ 125/62 Standing] Orthostatic Blood Pressure [ 107/45 Sitting] Orthostatic Blood Pressure [ 117/51 Supine] Weight - Most Recent: 118 lb 11.185 oz I&O - Last 24 Hours: Intake & Output 01/24/21 01/24/21 01/24/21 06:59 14:59 22:59 Intake Total 360 240 Balance 360 240 Lab Results Last 24 Hours: Laboratory Results - last 24 hr 01/23/21 01/24/21 01/24/21 Range/Units 20:50 05:55 05:55 WBC 10.5 (4.5-11.0) K/uL RBC 3.47 (3.30-5.50) M/uL Hgb 10.2 L (12.0-15.0) g/dL Hct 30.5 L (36.0-48.0) % MCV 88 (80-98) fL MCH 29 (27-31) pg MCHC 33 (32-36) % Plt Count 372 (150-400) K/uL Sodium 137 L (140-148) mmol/L Potassium 3.8 (3.6-5.2) mmol/L Chloride 99 L (100-108) mmol/L Carbon Dioxide 32 (21-32) mmol/L Anion Gap 9.8 (5.0-14.0) mmol/L BUN 13 (7-18) mg/dL Creatinine 0.6 (0.6-1.0) mg/dL Est Cr Clr Drug Dosing 57.72 mL/min Estimated GFR (MDRD) > 60 (>60) Glucose 86 (74-106) mg/dL POC Glucose 250 H (74-106) mg/dL Calcium 9.1 (8.5-10.1) mg/dL 01/24/21 01/24/21 01/24/21 Range/Units 07:43 11:31 16:26 WBC (4.5-11.0) K/uL RBC (3.30-5.50) M/uL Hgb (12.0-15.0) g/dL Hct (36.0-48.0) % MCV (80-98) fL MCH (27-31) pg MCHC (32-36) % Plt Count (150-400) K/uL Sodium (140-148) mmol/L Potassium (3.6-5.2) mmol/L Chloride (100-108) mmol/L Carbon Dioxide (21-32) mmol/L Anion Gap (5.0-14.0) mmol/L BUN (7-18) mg/dL Creatinine (0.6-1.0) mg/dL Est Cr Clr Drug Dosing mL/min Estimated GFR (MDRD) (>60) Glucose (74-106) mg/dL POC Glucose 116 H 150 H 139 H (74-106) mg/dL Calcium (8.5-10.1) mg/dL Med Orders - Current: Current Medications Acetaminophen (Acetaminophen 325 Mg Tab) 650 mg PO Q4H PRN PRN Reason: Pain/Fever Last Admin: 01/21/21 08:21 Dose: 650 mg Documented by: Hydrocodone Bitart/Acetaminophen (Acetaminophen/Hydrocodone 325-5 Mg Tab) 1 tab PO Q4H PRN PRN Reason: Pain (mild 1-3) Last Admin: 01/18/21 19:37 Dose: 1 tab Documented by: Amlodipine Besylate (Amlodipine 5 Mg Tab) 2.5 mg PO DAILY SHELBI Last Admin: 01/24/21 08:27 Dose: 2.5 mg Documented by: Bandage/Support Products (Nozin Nasal Maid Supervisor) 1 applic NASBOTH BID [facility] Stop: 01/24/21 21:01 Last Admin: 01/24/21 20:07 Dose: 1 applic Documented by: Calcium Carbonate/Glycine (Calcium Carbonate 500 Mg Tab.Chew) 1,000 mg PO Q2H PRN PRN Reason: Indigestion Last Admin: 01/20/21 04:11 Dose: 1,000 mg Documented by: Dextrose (Glucose Gel 15 Gm In 37.5 Gm Tube) 15 gm PO ONETIME PRN PRN Reason: Hypoglycemia Dextrose/Water (50% Dextrose In Water 50 Ml Syringe) 50 ml IVPUSH ASDIRECTED PRN PRN Reason: Hypoglycemia Digoxin (Digoxin 125 Mcg Tab) 250 mcg PO DAILY@1300 [facility] Last Admin: 01/24/21 12:46 Dose: 250 mcg Documented by: Docusate Sodium (Docusate Sodium 100 Mg Cap) 100 mg PO BID [facility] Last Admin: 01/24/21 20:07 Dose: 100 mg Documented by: Enoxaparin Sodium (Enoxaparin 30 Mg/0.3 Ml Syringe) 30 mg SUBCUT DAILY [facility] Last Admin: 01/24/21 08:26 Dose: 30 mg Documented by: Glucagon (Glucagon,Human Recombinant 1 Mg Vial) 1 mg IM ASDIRECTED PRN PRN Reason: Hypoglycemia Hydrochlorothiazide (Hydrochlorothiazide 25 Mg Tab) 25 mg PO DAILY [facility] Last Admin: 01/24/21 08:25 Dose: 25 mg Documented by: Insulin Glargine (Insulin Glargine,Human Rec. Analog 100 Units/Ml 3 Ml Pen) 16 units SUBCUT BEDTIME [facility] Last Admin: 01/23/21 21:24 Dose: 16 units Documented by: Insulin Human Lispro (Insulin Lispro 100 Unit/Ml 3 Ml Kwikpen) 0 unit SUBCUT QIDACANDBED [facility]; Protocol Last Admin: 01/24/21 17:11 Dose: Not Given Documented by: Lactobacillus Rhamnosus (Lactobacillus Rhamnosus Gg (Probiotic) Cap) 1 cap PO BID [facility] Last Admin: 01/24/21 20:07 Dose: 1 cap Documented by: Liraglutide (Liraglutide (Rdna Origin) 0.6 Mg/0.1 Ml 3 Ml Pen) 1.2 mg SUBCUT DAILY [facility] Last Admin: 01/24/21 08:27 Dose: 1.2 mg Documented by: Lisinopril (Lisinopril 10 Mg Tab) 10 mg PO DAILY [facility] Last Admin: 01/24/21 08:26 Dose: 10 mg Documented by: Magnesium Hydroxide (Magnesium Hydroxide 400 Mg/5 Ml Susp 30 Ml Cup) 30 ml PO BID PRN PRN Reason: Constipation Last Admin: 01/21/21 04:03 Dose: 30 ml Documented by: Metformin HCl (Metformin 500 Mg Tab) 1,000 mg PO BIDHIALS [facility] Last Admin: 01/24/21 17:50 Dose: 1,000 mg Documented by: Morphine Sulfate (Morphine 2 Mg/Ml Syringe) 1 mg IVPUSH Q1H PRN PRN Reason: Breakthrough Pain Last Admin: 01/18/21 11:32 Dose: 1 mg Documented by: Ondansetron HCl (Ondansetron 4 Mg/2 Ml Sdv) 4 mg IVPUSH Q4H PRN PRN Reason: Nausea/Vomiting Oxycodone/Acetaminophen (Acetaminophen/Oxycodone 325-5 Mg Tab) 1 - 2 tab PO Q4H PRN PRN Reason: Pain Last Admin: 01/24/21 18:47 Dose: 1 tab Documented by: Discontinued Medications Albuterol/Ipratropium (Albuterol/Ipratropium 3.0-0.5 Mg/3 Ml Neb Soln) 3 ml NEB ONETIME ONE Stop: 01/18/21 07:36 Last Admin: 01/18/21 07:43 Dose: 3 ml Documented by: Bandage/Support Products (Nozin Nasal Maid Supervisor) 1 applic NASBOTH BID [facility] Last Admin: 01/18/21 06:43 Dose: 1 applic Documented by: Dextrose/Water (50% Dextrose In Water 50 Ml Syringe) 50 ml IVPUSH ASDIRECTED PRN PRN Reason: Hypoglycemia Fentanyl (Fentanyl 100 Mcg/2 Ml Sdv) Confirm Administered Dose 100 mcg .ROUTE .STK-MED ONE Stop: 01/18/21 07:51 Glucagon (Glucagon,Human Recombinant 1 Mg Vial) 1 mg IM ASDIRECTED PRN PRN Reason: Hypoglycemia Cefazolin Sodium/Dextrose (Ancef 2 Gm/50 Ml) 50 mls @ 100 mls/hr IV ONETIME ONE Stop: 01/18/21 06:29 Last Admin: 01/18/21 07:50 Dose: 100 mls/hr Documented by: Lactated Ringer's (Ringers, Lactated) 1,000 mls @ 75 mls/hr IV ASDIRECTED SHELBI Last Admin: 01/18/21 06:42 Dose: 75 mls/hr Documented by: Lactated Ringer's (Ringers, Lactated) Confirm Administered Dose 1,000 mls @ as directed .ROUTE .STK-MED ONE Stop: 01/18/21 08:33 Sodium Chloride (Normal Saline) 1,000 mls @ 125 mls/hr IV ASDIRECTED SHELBI Last Admin: 01/19/21 04:34 Dose: 125 mls/hr Documented by: Cefazolin Sodium/Dextrose 1 gm (/ Premix) 50 mls @ 200 mls/hr IV Q8H [facility] Stop: 01/19/21 06:14 Last Admin: 01/19/21 05:31 Dose: 200 mls/hr Documented by: Insulin Glargine (Insulin Glargine,Human Rec. Analog 100 Units/Ml 3 Ml Pen) 5 units SUBCUT BEDTIME [facility] Last Admin: 01/18/21 21:18 Dose: 5 units Documented by: Insulin Glargine (Insulin Glargine,Human Rec. Analog 100 Units/Ml 3 Ml Pen) 10 units SUBCUT BEDTIME [facility] Last Admin: 01/21/21 21:11 Dose: 10 units Documented by: Insulin Glargine (Insulin Glargine,Human Rec. Analog 100 Units/Ml 3 Ml Pen) 14 units SUBCUT BEDTIME [facility] Insulin Glargine (Insulin Glargine,Human Rec. Analog 100 Units/Ml 3 Ml Pen) 4 units SUBCUT BID ONE Stop: 01/21/21 22:01 Last Admin: 01/21/21 23:26 Dose: 4 units Documented by: Insulin Human Lispro (Insulin Lispro 100 Unit/Ml 3 Ml Kwikpen) 1 unit SUBCUT QIDACANDBED [facility]; Protocol Stop: 01/18/21 19:00 Last Admin: 01/19/21 00:30 Dose: Not Given Documented by: Insulin Human Lispro (Insulin Lispro 100 Unit/Ml 3 Ml Kwikpen) 0 unit SUBCUT QIDACANDBED [facility]; Protocol Stop: 01/22/21 20:00 Last Admin: 01/19/21 07:43 Dose: 1 units Documented by: Lisinopril 20 mg/ Lisinopril (10 mg) 30 mg PO DAILY [facility] Last Admin: 01/22/21 08:21 Dose: 30 mg Documented by: Midazolam HCl (Midazolam 1 Mg/Ml 2 Ml Sdv) Confirm Administered Dose 2 mg .ROUTE .STK-MED ONE Stop: 01/18/21 07:51 Non-Formulary Medication (Lisinopril [Lisinopril]) 30 mg PO DAILY [facility] Povidone Iodine (Povidone-Iodine 10% Soln 118.25 Ml Bottle) Confirm Administered Dose 1 ml .ROUTE .STK-MED ONE Stop: 01/18/21 06:46 Last Admin: 01/18/21 08:25 Dose: 30 ml Documented by: Propofol (Propofol 200 Mg/20 Ml Sdv) Confirm Administered Dose 200 mg .ROUTE .STK-MED ONE Stop: 01/18/21 07:51 - Exam Urinary Catheter Total Time: 3Days 10Hours General: Alert, Oriented, Cooperative, No Acute Distress HEENT: Pupils Equal, Pupils Reactive, Mucous Membr. Moist/[place] Neck: Supple, Trachea Midline Lungs: Clear to Auscultation, Normal Respiratory Effort Cardiovascular: Regular Rate, Regular Rhythm GI/Abdominal Exam: Normal Bowel Sounds, Soft, Non-Tender, No Distention Back Exam: Normal Inspection Extremities: Other (Left lower extremity and knee swelling, surgical scar healing, bruising along the posterior aspect of the entire left lower extremity) Skin: Warm, Dry, Intact Wound/Incisions: Healing Well Neurological: No New Focal Deficit Psy/Mental Status: Alert, Normal Affect, Normal Mood Sepsis Event Note - Evaluation Sepsis Screening Result: No Definite Risk - Focused Exam Vital Signs: Vital Signs Temp Pulse Pulse Resp BP BP Pulse Ox 01/24/21 19:00 100.4 F 95 16 122/56 L 98 01/24/21 15:59 99.6 F 91 16 118/48 L 98 01/24/21 12:46 95 01/24/21 11:33 98.7 F 97 16 116/54 L 96 01/24/21 08:27 122/60 01/24/21 08:26 122/60 Consult PN Assessment/Plan POD#: 6 Procedures: Procedures ASSAY OF DIGOXIN TOTAL (01/06/20) ASSAY OF TROPONIN QUANT (11/13/17) COMPLETE CBC AUTOMATED (11/13/17) COMPLETE CBC W/AUTO DIFF WBC (01/06/20) COMPREHEN METABOLIC PANEL (01/06/20) CT HEAD/BRAIN W/O DYE (11/13/17) DRAIN/INJ JOINT/BURSA W/O US (10/20/20) ECG MONIT/REPRT UP TO 48 HRS (11/15/17) ECG MONIT/REPRT UP TO 48 HRS (11/15/17) ELECTROCARDIOGRAM TRACING (01/06/20) EMERGENCY DEPT VISIT (01/06/20) EMERGENCY DEPT VISIT (11/13/17) EXTRACRANIAL BILAT STUDY (11/15/17) GAIT TRAINING THERAPY (01/06/20) GLUCOSE BLOOD TEST (01/06/20) INSERT TEMP BLADDER CATH (01/06/20) METABOLIC PANEL TOTAL CA (01/06/20) OFFICE O/P EST LOW 20-29 MIN (10/20/20) OT EVAL LOW COMPLEX 30 MIN (01/06/20) POSTOP FOLLOW-UP VISIT (01/21/20) PT EVAL LOW COMPLEX 20 MIN (01/06/20) PT EVALUATION (01/12/15) ROUTINE VENIPUNCTURE (01/06/20) THERAPEUTIC ACTIVITIES (01/06/20) THERAPEUTIC EXERCISES (01/06/20) TTE W/DOPPLER COMPLETE (07/16/15) URINALYSIS AUTO W/SCOPE (01/06/20) URINE CULTURE/COLONY COUNT (11/13/17) X-RAY EXAM CHEST 1 VIEW (01/06/20) X-RAY EXAM HIP UNI 1 VIEW (02/11/20) X-RAY EXAM HIP UNI 2-3 VIEWS (01/06/20) X-RAY EXAM OF KNEE 3 (10/20/20) X-RAY EXAM OF KNEES (10/20/20) (1) Status post left knee replacement SNOMED Code(s): 2689696051281, 254491604, 8706909191469 Code(s): Z96.652 - PRESENCE OF LEFT ARTIFICIAL KNEE JOINT Current Visit: Yes (2) Diabetes mellitus SNOMED Code(s): 13648830 Code(s): E11.9 - TYPE 2 DIABETES MELLITUS WITHOUT COMPLICATIONS Current Visit: No Problem List Initiated/Reviewed/Updated: Yes Plan: Diabetes mellitus type II -Lantus 16 units at bedtime -Continue sliding scale insulin as needed with meals Essential hypertension -At home she normally takes hydrochlorothiazide 25 mg, Norvasc 2.5 mg, and lisinopril 30 mg -We are giving her hydrochlorothiazide 25 mg, Norvasc 2.5 mg, and lisinopril 10 mg -Her blood pressures been adequately controlled on the decreased dose of lisinopril Status post left knee replacement -Management per surgical team Plan: She will be transferred to a rehabilitation facility when a bed becomes available. Erin David DO
[2021-01-24] MEDS: Calcium Carbonate 500 MG Tab.Chew PO PRN (21:41)
[2021-01-24] MEDS: Insulin Glargine,Human Rec. Analog 100 Units/ML 3 ML Pen SUBCUT SCH (21:42)
[2021-01-25] MEDS: Insulin Lispro 100 Unit/ML 3 ML KwikPen SUBCUT SCH ×4 (08:35→21:10)
[2021-01-25] MEDS: Enoxaparin 30 MG/0.3 ML Syringe SUBCUT SCH (08:36)
[2021-01-25] MEDS: metFORMIN 500 MG Tab PO SCH ×2 (08:36→17:37)
[2021-01-25] MEDS: Lactobacillus Rhamnosus GG (Probiotic) Cap PO SCH ×2 (08:36→21:14)
[2021-01-25] MEDS: Docusate Sodium 100 MG Cap PO SCH ×2 (08:37→21:14)
[2021-01-25] MEDS: Hydrochlorothiazide 25 MG Tab PO SCH (08:37)
[2021-01-25] MEDS: Lisinopril 10 MG Tab PO SCH (08:37)
[2021-01-25] MEDS: amLODIPine 5 MG Tab PO SCH (08:37)
[2021-01-25] MEDS: Liraglutide (rDNA Origin) 0.6 MG/0.1 ML 3 ML Pen SUBCUT SCH (08:37)
[2021-01-25] MEDS: Digoxin 125 MCG Tab PO SCH (13:59)
[2021-01-25] MEDS: Acetaminophen/HYDROcodone 325-5 MG Tab PO PRN (15:36)
[2021-01-25] MEDS: Insulin Glargine,Human Rec. Analog 100 Units/ML 3 ML Pen SUBCUT SCH (21:09)
[2021-01-25] MEDS: Acetaminophen/oxyCODONE 325-5 MG Tab PO PRN (21:22)
[2021-01-26] MEDS: Insulin Lispro 100 Unit/ML 3 ML KwikPen SUBCUT SCH ×4 (08:39→21:44)
[2021-01-26] MEDS: metFORMIN 500 MG Tab PO SCH ×2 (08:39→18:08)
[2021-01-26] MEDS: Liraglutide (rDNA Origin) 0.6 MG/0.1 ML 3 ML Pen SUBCUT SCH (09:17)
[2021-01-26] MEDS: Lactobacillus Rhamnosus GG (Probiotic) Cap PO SCH ×2 (09:17→20:10)
[2021-01-26] MEDS: Hydrochlorothiazide 25 MG Tab PO SCH (09:17)
[2021-01-26] MEDS: amLODIPine 5 MG Tab PO SCH (09:17)
[2021-01-26] MEDS: Enoxaparin 30 MG/0.3 ML Syringe SUBCUT SCH (09:17)
[2021-01-26] MEDS: Lisinopril 10 MG Tab PO SCH (09:17)
[2021-01-26] MEDS: Docusate Sodium 100 MG Cap PO SCH ×2 (09:17→20:10)
[2021-01-26] MEDS: Digoxin 125 MCG Tab PO SCH (13:06)
[2021-01-26] MEDS: Acetaminophen/oxyCODONE 325-5 MG Tab PO PRN (20:09)
[2021-01-26] MEDS: Insulin Glargine,Human Rec. Analog 100 Units/ML 3 ML Pen SUBCUT SCH (21:45)
[2021-01-27] MEDS: Insulin Lispro 100 Unit/ML 3 ML KwikPen SUBCUT SCH ×2 (07:23→12:24)
[2021-01-27] MEDS: Acetaminophen/HYDROcodone 325-5 MG Tab PO PRN (08:52)
[2021-01-27] MEDS: Lactobacillus Rhamnosus GG (Probiotic) Cap PO SCH (08:53)
[2021-01-27] MEDS: Docusate Sodium 100 MG Cap PO SCH (08:53)
[2021-01-27] MEDS: metFORMIN 500 MG Tab PO SCH (08:53)
[2021-01-27] MEDS: Hydrochlorothiazide 25 MG Tab PO SCH (08:54)
[2021-01-27] MEDS: Enoxaparin 30 MG/0.3 ML Syringe SUBCUT SCH (08:55)
[2021-01-27] MEDS: amLODIPine 5 MG Tab PO SCH (08:55)
[2021-01-27] MEDS: Lisinopril 10 MG Tab PO SCH (08:56)
[2021-01-27] MEDS: Liraglutide (rDNA Origin) 0.6 MG/0.1 ML 3 ML Pen SUBCUT SCH (08:56)
--- NOTE | 2021-01-27 12:03 | PCM.SURGPN ---
- General Info Date of Service: 01/24/21 Functional Status: Reports: Pain Controlled, Tolerating Diet, Ambulating, Urinating - Review of Systems General: Reports: No Symptoms HEENT: Reports: No Symptoms Pulmonary: Reports: No Symptoms Cardiovascular: Reports: No Symptoms Gastrointestinal: Reports: No Symptoms Genitourinary: Reports: No Symptoms Musculoskeletal: Reports: Leg Pain, Joint Swelling Skin: Reports: No Symptoms Neurological: Reports: No Symptoms Psychiatric: Reports: No Symptoms - Patient Data Vitals - Most Recent: Last Vital Signs Temp 37.2 C 01/27/21 11:00 Pulse 101 H 01/27/21 11:00 Resp 16 01/27/21 11:00 BP 113/61 01/27/21 11:00 Pulse Ox 100 01/27/21 11:00 Orthostatic Blood Pressure [ 125/62 Standing] Orthostatic Blood Pressure [ 107/45 Sitting] Orthostatic Blood Pressure [ 117/51 Supine] Weight - Most Recent: 53.841 kg I&O - Last 24 Hours: Intake & Output 01/26/21 01/27/21 01/27/21 22:59 06:59 14:59 Intake Total 480 240 300 Balance 480 240 300 Lab Results Last 24 Hrs: Laboratory Results - last 24 hr 01/26/21 01/26/21 01/27/21 Range/Units 16:24 21:06 07:18 POC Glucose 165 H 186 H 132 H (74-106) mg/dL 01/27/21 Range/Units 11:34 POC Glucose 146 H (74-106) mg/dL Med Orders - Current: Current Medications Acetaminophen (Acetaminophen 325 Mg Tab) 650 mg PO Q4H PRN PRN Reason: Pain/Fever Last Admin: 01/21/21 08:21 Dose: 650 mg Documented by: Hydrocodone Bitart/Acetaminophen (Acetaminophen/Hydrocodone 325-5 Mg Tab) 1 tab PO Q4H PRN PRN Reason: Pain (mild 1-3) Last Admin: 01/27/21 08:52 Dose: 1 tab Documented by: Amlodipine Besylate (Amlodipine 5 Mg Tab) 2.5 mg PO DAILY [facility] Last Admin: 01/27/21 08:55 Dose: 2.5 mg Documented by: Calcium Carbonate/Glycine (Calcium Carbonate 500 Mg Tab.Chew) 1,000 mg PO Q2H PRN PRN Reason: Indigestion Last Admin: 01/24/21 21:41 Dose: 1,000 mg Documented by: Dextrose (Glucose Gel 15 Gm In 37.5 Gm Tube) 15 gm PO ONETIME PRN PRN Reason: Hypoglycemia Dextrose/Water (50% Dextrose In Water 50 Ml Syringe) 50 ml IVPUSH ASDIRECTED PRN PRN Reason: Hypoglycemia Digoxin (Digoxin 125 Mcg Tab) 250 mcg PO DAILY@1300 [facility] Last Admin: 01/26/21 13:06 Dose: 250 mcg Documented by: Docusate Sodium (Docusate Sodium 100 Mg Cap) 100 mg PO BID [facility] Last Admin: 01/27/21 08:53 Dose: 100 mg Documented by: Enoxaparin Sodium (Enoxaparin 30 Mg/0.3 Ml Syringe) 30 mg SUBCUT DAILY [facility] Last Admin: 01/27/21 08:55 Dose: 30 mg Documented by: Glucagon (Glucagon,Human Recombinant 1 Mg Vial) 1 mg IM ASDIRECTED PRN PRN Reason: Hypoglycemia Hydrochlorothiazide (Hydrochlorothiazide 25 Mg Tab) 25 mg PO DAILY [facility] Last Admin: 01/27/21 08:54 Dose: 25 mg Documented by: Insulin Glargine (Insulin Glargine,Human Rec. Analog 100 Units/Ml 3 Ml Pen) 16 units SUBCUT BEDTIME [facility] Last Admin: 01/26/21 21:45 Dose: 16 units Documented by: Insulin Human Lispro (Insulin Lispro 100 Unit/Ml 3 Ml Kwikpen) 0 unit SUBCUT QIDACANDBED [facility]; Protocol Last Admin: 01/27/21 07:23 Dose: Not Given Documented by: Lactobacillus Rhamnosus (Lactobacillus Rhamnosus Gg (Probiotic) Cap) 1 cap PO BID [facility] Last Admin: 01/27/21 08:53 Dose: 1 cap Documented by: Liraglutide (Liraglutide (Rdna Origin) 0.6 Mg/0.1 Ml 3 Ml Pen) 1.2 mg SUBCUT DAILY [facility] Last Admin: 01/27/21 08:56 Dose: 1.2 mg Documented by: Lisinopril (Lisinopril 10 Mg Tab) 10 mg PO DAILY [facility] Last Admin: 01/27/21 08:56 Dose: 10 mg Documented by: Magnesium Hydroxide (Magnesium Hydroxide 400 Mg/5 Ml Susp 30 Ml Cup) 30 ml PO BID PRN PRN Reason: Constipation Last Admin: 01/21/21 04:03 Dose: 30 ml Documented by: Metformin HCl (Metformin 500 Mg Tab) 1,000 mg PO BIDMEALS [facility] Last Admin: 01/27/21 08:53 Dose: 1,000 mg Documented by: Morphine Sulfate (Morphine 2 Mg/Ml Syringe) 1 mg IVPUSH Q1H PRN PRN Reason: Breakthrough Pain Last Admin: 01/18/21 11:32 Dose: 1 mg Documented by: Ondansetron HCl (Ondansetron 4 Mg/2 Ml Sdv) 4 mg IVPUSH Q4H PRN PRN Reason: Nausea/Vomiting Oxycodone/Acetaminophen (Acetaminophen/Oxycodone 325-5 Mg Tab) 1 - 2 tab PO Q4H PRN PRN Reason: Pain Last Admin: 01/26/21 20:09 Dose: 1 tab Documented by: Discontinued Medications Albuterol/Ipratropium (Albuterol/Ipratropium 3.0-0.5 Mg/3 Ml Neb Soln) 3 ml NEB ONETIME ONE Stop: 01/18/21 07:36 Last Admin: 01/18/21 07:43 Dose: 3 ml Documented by: Bandage/Support Products (Nozin Nasal Behavioral Health Rn) 1 applic NASBOTH BID [facility] Last Admin: 01/18/21 06:43 Dose: 1 applic Documented by: Bandage/Support Products (Nozin Nasal Behavioral Health Rn) 1 applic NASBOTH BID [facility] Stop: 01/24/21 21:01 Last Admin: 01/24/21 20:07 Dose: 1 applic Documented by: Dextrose/Water (50% Dextrose In Water 50 Ml Syringe) 50 ml IVPUSH ASDIRECTED PRN PRN Reason: Hypoglycemia Fentanyl (Fentanyl 100 Mcg/2 Ml Sdv) Confirm Administered Dose 100 mcg .ROUTE .STK-MED ONE Stop: 01/18/21 07:51 Glucagon (Glucagon,Human Recombinant 1 Mg Vial) 1 mg IM ASDIRECTED PRN PRN Reason: Hypoglycemia Cefazolin Sodium/Dextrose (Ancef 2 Gm/50 Ml) 50 mls @ 100 mls/hr IV ONETIME ONE Stop: 01/18/21 06:29 Last Admin: 01/18/21 07:50 Dose: 100 mls/hr Documented by: Lactated Ringer's (Ringers, Lactated) 1,000 mls @ 75 mls/hr IV ASDIRECTED [facility] Last Admin: 01/18/21 06:42 Dose: 75 mls/hr Documented by: Lactated Ringer's (Ringers, Lactated) Confirm Administered Dose 1,000 mls @ as directed .ROUTE .STK-MED ONE Stop: 01/18/21 08:33 Sodium Chloride (Normal Saline) 1,000 mls @ 125 mls/hr IV ASDIRECTED [facility] Last Admin: 01/19/21 04:34 Dose: 125 mls/hr Documented by: Cefazolin Sodium/Dextrose 1 gm (/ Premix) 50 mls @ 200 mls/hr IV Q8H [facility] Stop: 01/19/21 06:14 Last Admin: 01/19/21 05:31 Dose: 200 mls/hr Documented by: Insulin Glargine (Insulin Glargine,Human Rec. Analog 100 Units/Ml 3 Ml Pen) 5 units SUBCUT BEDTIME [facility] Last Admin: 01/18/21 21:18 Dose: 5 units Documented by: Insulin Glargine (Insulin Glargine,Human Rec. Analog 100 Units/Ml 3 Ml Pen) 10 units SUBCUT BEDTIME [facility] Last Admin: 01/21/21 21:11 Dose: 10 units Documented by: Insulin Glargine (Insulin Glargine,Human Rec. Analog 100 Units/Ml 3 Ml Pen) 14 units SUBCUT BEDTIME [facility] Insulin Glargine (Insulin Glargine,Human Rec. Analog 100 Units/Ml 3 Ml Pen) 4 units SUBCUT BID ONE Stop: 01/21/21 22:01 Last Admin: 01/21/21 23:26 Dose: 4 units Documented by: Insulin Human Lispro (Insulin Lispro 100 Unit/Ml 3 Ml Kwikpen) 1 unit SUBCUT QIDACANDBED [facility]; Protocol Stop: 01/18/21 19:00 Last Admin: 01/19/21 00:30 Dose: Not Given Documented by: Insulin Human Lispro (Insulin Lispro 100 Unit/Ml 3 Ml Kwikpen) 0 unit SUBCUT QIDACANDBED [facility]; Protocol Stop: 01/22/21 20:00 Last Admin: 01/19/21 07:43 Dose: 1 units Documented by: Lisinopril 20 mg/ Lisinopril (10 mg) 30 mg PO DAILY [facility] Last Admin: 01/22/21 08:21 Dose: 30 mg Documented by: Midazolam HCl (Midazolam 1 Mg/Ml 2 Ml Sdv) Confirm Administered Dose 2 mg .ROUTE .STK-MED ONE Stop: 01/18/21 07:51 Non-Formulary Medication (Lisinopril [Lisinopril]) 30 mg PO DAILY [facility] Povidone Iodine (Povidone-Iodine 10% Soln 118.25 Ml Bottle) Confirm Administered Dose 1 ml .ROUTE .STK-MED ONE Stop: 01/18/21 06:46 Last Admin: 01/18/21 08:25 Dose: 30 ml Documented by: Propofol (Propofol 200 Mg/20 Ml Sdv) Confirm Administered Dose 200 mg .ROUTE .STK-MED ONE Stop: 01/18/21 07:51 - Exam Wound/Incisions: Healing Well, No Drainage General: Alert, Oriented Cardiovascular: Regular Rate, Regular Rhythm Extremities: Joint Swelling, Limited Range of Motion Skin: Warm, Dry Neurological: No New Focal Deficit Psy/Mental Status: Alert, Normal Affect, Normal Mood Sepsis Event Note - Evaluation Sepsis Screening Result: Possible Sepsis Risk - Focused Exam Vital Signs: Vital Signs Temp Temp Pulse Resp BP BP Pulse Ox 01/27/21 11:00 37.2 C 101 H 16 113/61 100 01/27/21 08:56 124/61 01/27/21 08:55 124/61 01/27/21 07:00 36.8 C 99 16 124/61 95 01/27/21 02:00 36.5 C - Problem List & Annotations (1) Status post left knee replacement SNOMED Code(s): 4890694449754, [id number], [id number] Code(s): Z96.652 - PRESENCE OF LEFT ARTIFICIAL KNEE JOINT Status: Acute Current Visit: Yes - Problem List Review Problem List Initiated/Reviewed/Updated: Yes - My Orders Last 24 Hours: Active Orders 24 hr Category Date Time Status Ready for Discharge [RC] PER UNIT ROUTINE Care 01/27/21 11:57 Ordered GLUCOSE POC LAB TO COLLECT JPM [POC] QIDACANDBED Lab 01/27/21 16:30 Ordered GLUCOSE POC LAB TO COLLECT JPM [POC] QIDACANDBED Lab 01/27/21 21:00 Ordered GLUCOSE POC LAB TO COLLECT JPM [POC] QIDACANDBED Lab 01/28/21 07:30 Ordered GLUCOSE POC LAB TO COLLECT JPM [POC] QIDACANDBED Lab 01/28/21 11:30 Ordered GLUCOSE POC LAB TO COLLECT JPM [POC] QIDACANDBED Lab 01/28/21 16:30 Ordered GLUCOSE POC LAB TO COLLECT JPM [POC] QIDACANDBED Lab 01/28/21 21:00 Ordered GLUCOSE POC LAB TO COLLECT JPM [POC] QIDACANDBED Lab 01/29/21 07:30 Ordered Medication Orders Acetaminophen (Acetaminophen 325 Mg Tab) 650 mg PO Q4H PRN PRN Reason: Pain/Fever Last Admin: 01/21/21 08:21 Dose: 650 mg Documented by: CHIP Hydrocodone Bitart/Acetaminophen (Acetaminophen/Hydrocodone 325-5 Mg Tab) 1 tab PO Q4H PRN PRN Reason: Pain (mild 1-3) Last Admin: 01/27/21 08:52 Dose: 1 tab Documented by: Admin: 01/25/21 15:36 Dose: 1 tab Documented by: Admin: 01/18/21 19:37 Dose: 1 tab Documented by: Admin: 01/18/21 14:47 Dose: 1 tab Documented by: Admin: 01/18/21 10:56 Dose: 1 tab Documented by: CHIP Amlodipine Besylate (Amlodipine 5 Mg Tab) 2.5 mg PO DAILY [facility] Admin: 01/27/21 08:55 Dose: 2.5 mg Documented by: Admin: 01/26/21 09:17 Dose: 2.5 mg Documented by: Admin: 01/25/21 08:37 Dose: 2.5 mg Documented by: Admin: 01/24/21 08:27 Dose: 2.5 mg Documented by: Admin: 01/23/21 08:10 Dose: 2.5 mg Documented by: Admin: 01/22/21 08:20 Dose: 2.5 mg Documented by: Admin: 01/21/21 08:29 Dose: 2.5 mg Documented by: Admin: 01/20/21 08:04 Dose: 2.5 mg Documented by: Admin: 01/19/21 08:05 Dose: 2.5 mg Documented by: MATT Calcium Carbonate/Glycine (Calcium Carbonate 500 Mg Tab.Chew) 1,000 mg PO Q2H PRN PRN Reason: Indigestion Last Admin: 01/24/21 21:41 Dose: 1,000 mg Documented by: Admin: 01/20/21 04:11 Dose: 1,000 mg Documented by: ABIOLA Dextrose (Glucose Gel 15 Gm In 37.5 Gm Tube) 15 gm PO ONETIME PRN PRN Reason: Hypoglycemia Dextrose/Water (50% Dextrose In Water 50 Ml Syringe) 50 ml IVPUSH ASDIRECTED PRN PRN Reason: Hypoglycemia Digoxin (Digoxin 125 Mcg Tab) 250 mcg PO DAILY@1300 [facility] Last Admin: 01/26/21 13:06 Dose: 250 mcg Documented by: Admin: 01/25/21 13:59 Dose: 250 mcg Documented by: Admin: 01/24/21 12:46 Dose: 250 mcg Documented by: Admin: 01/23/21 12:11 Dose: 250 mcg Documented by: Admin: 01/22/21 13:13 Dose: 250 mcg Documented by: Admin: 01/21/21 13:37 Dose: 250 mcg Documented by: Admin: 01/20/21 13:56 Dose: 250 mcg Documented by: Admin: 01/19/21 12:29 Dose: 250 mcg Documented by: MATT Docusate Sodium (Docusate Sodium 100 Mg Cap) 100 mg PO BID [facility] Last Admin: 01/27/21 08:53 Dose: 100 mg Documented by: Admin: 01/26/21 20:10 Dose: 100 mg Documented by: Admin: 01/26/21 09:17 Dose: 100 mg Documented by: Admin: 01/25/21 21:14 Dose: 100 mg Documented by: Admin: 01/25/21 08:37 Dose: 100 mg Documented by: Admin: 01/24/21 20:07 Dose: 100 mg Documented by: Admin: 01/24/21 08:27 Dose: 100 mg Documented by: Admin: 01/23/21 21:26 Dose: 100 mg Documented by: Admin: 01/23/21 08:11 Dose: 100 mg Documented by: Admin: 01/22/21 21:00 Dose: 100 mg Documented by: Admin: 01/22/21 08:19 Dose: 100 mg Documented by: Admin: 01/21/21 21:10 Dose: 100 mg Documented by: Admin: 01/21/21 08:28 Dose: Not Given Documented by: Admin: 01/20/21 21:20 Dose: 100 mg Documented by: Admin: 01/20/21 08:04 Dose: 100 mg Documented by: Admin: 01/19/21 21:34 Dose: 100 mg Documented by: Admin: 01/19/21 08:04 Dose: 100 mg Documented by: Admin: 01/18/21 19:59 Dose: 100 mg Documented by: ABIOLA Enoxaparin Sodium (Enoxaparin 30 Mg/0.3 Ml Syringe) 30 mg SUBCUT DAILY [facility] Admin: 01/27/21 08:55 Dose: 30 mg Documented by: Admin: 01/26/21 09:17 Dose: 30 mg Documented by: Admin: 01/25/21 08:36 Dose: 30 mg Documented by: Admin: 01/24/21 08:26 Dose: 30 mg Documented by: Admin: 01/23/21 08:10 Dose: 30 mg Documented by: Admin: 01/22/21 08:20 Dose: 30 mg Documented by: Admin: 01/21/21 08:31 Dose: 30 mg Documented by: Admin: 01/20/21 08:05 Dose: 30 mg Documented by: Admin: 01/19/21 08:04 Dose: 30 mg Documented by: MATT Glucagon (Glucagon,Human Recombinant 1 Mg Vial) 1 mg IM ASDIRECTED PRN PRN Reason: Hypoglycemia Hydrochlorothiazide (Hydrochlorothiazide 25 Mg Tab) 25 mg PO DAILY [facility] Admin: 01/27/21 08:54 Dose: 25 mg Documented by: Admin: 01/26/21 09:17 Dose: 25 mg Documented by: Admin: 01/25/21 08:37 Dose: 25 mg Documented by: Admin: 01/24/21 08:25 Dose: 25 mg Documented by: Admin: 01/23/21 08:11 Dose: 25 mg Documented by: Admin: 01/22/21 08:20 Dose: 25 mg Documented by: Admin: 01/21/21 08:28 Dose: 25 mg Documented by: Admin: 01/20/21 08:05 Dose: 25 mg Documented by: Admin: 01/19/21 08:05 Dose: 25 mg Documented by: MATT Insulin Glargine (Insulin Glargine,Human Rec. Analog 100 Units/Ml 3 Ml Pen) 16 units SUBCUT BEDTIME [facility] Last Admin: 01/26/21 21:45 Dose: 16 units Documented by: ANUJA Cosigned by: GARLAND Admin: 01/25/21 21:09 Dose: 16 units Documented by: ALIE Cosigned by: SUJIT Admin: 01/24/21 21:42 Dose: 16 units Documented by: ALIE Cosigned by: GEE Admin: 01/23/21 21:24 Dose: 16 units Documented by: AVA Cosigned by: ORTEGA Admin: 01/22/21 21:05 Dose: 16 units Documented by: AVA Cosigned by: CODY Insulin Human Lispro (Insulin Lispro 100 Unit/Ml 3 Ml Kwikpen) 0 unit SUBCUT QIDACANDBED [facility]; Protocol Last Admin: 01/27/21 07:23 Dose: Not Given Documented by: Admin: 01/26/21 21:44 Dose: 1 unit Documented by: ANUJA Cosigned by: GARLAND Admin: 01/26/21 18:08 Dose: 1 unit Documented by: ENRIKE Cosigned by: THELMA Admin: 01/26/21 12:20 Dose: 1 unit Documented by: ENRIKE Israeligned by: SHANTELL Admin: 01/26/21 08:39 Dose: 1 unit Documented by: ENRIKE Jeffries by: LIZZIE Admin: 01/25/21 21:10 Dose: 1 unit Documented by: ALIE Cosigned by: SUJIT Admin: 01/25/21 16:56 Dose: Not Given Documented by: Admin: 01/25/21 12:34 Dose: Not Given Documented by: [email or web address] Admin: 01/25/21 08:35 Dose: Not Given Documented by: Admin: 01/24/21 21:43 Dose: 1 unit Documented by: ALIE Israeligned by: GEE Admin: 01/24/21 17:11 Dose: Not Given Documented by: Admin: 01/24/21 11:35 Dose: Not Given Documented by: Admin: 01/24/21 08:05 Dose: Not Given Documented by: Admin: 01/23/21 21:25 Dose: 3 unit Documented by: AVA Cosigned by: ORTEGA Admin: 01/23/21 16:38 Dose: Not Given Documented by: Admin: 01/23/21 11:46 Dose: 1 unit Documented by: SHANTELL Israeligned by: COURTNEY Admin: 01/23/21 07:52 Dose: Not Given Documented by: Admin: 01/22/21 20:57 Dose: Not Given Documented by: Admin: 01/22/21 17:35 Dose: 1 unit Documented by: ANUJA Israeligned by: SUJIT Admin: 01/22/21 11:24 Dose: Not Given Documented by: Admin: 01/22/21 08:19 Dose: 1 unit Documented by: ANUJA Israeligned by: SUJIT Admin: 01/21/21 21:10 Dose: 2 unit Documented by: GARLAND Israeligned by: SURYA Admin: 01/21/21 16:52 Dose: Not Given Documented by: Admin: 01/21/21 13:34 Dose: 3 unit Documented by: CHIP Israeligned by: SHANTELL Admin: 01/21/21 08:22 Dose: 1 unit Documented by: CHIP Jeffries by: ABIGAIL Admin: 01/20/21 21:21 Dose: Not Given Documented by: Admin: 01/20/21 17:20 Dose: 2 unit Documented by: CHIP Cosigned by: KATHLEEN Admin: 01/20/21 13:54 Dose: 1 unit Documented by: CHIP Jeffries by: ROBERTO Admin: 01/20/21 08:07 Dose: Not Given Documented by: Admin: 01/19/21 21:36 Dose: Not Given Documented by: Admin: 01/19/21 17:31 Dose: 2 unit Documented by: MATT Cosigned by: ANGELIA Lactobacillus Rhamnosus (Lactobacillus Rhamnosus Gg (Probiotic) Cap) 1 cap PO BID [facility] Admin: 01/27/21 08:53 Dose: 1 cap Documented by: Admin: 01/26/21 20:10 Dose: 1 cap Documented by: Admin: 01/26/21 09:17 Dose: 1 cap Documented by: Admin: 01/25/21 21:14 Dose: 1 cap Documented by: Admin: 01/25/21 08:36 Dose: 1 cap Documented by: Admin: 01/24/21 20:07 Dose: 1 cap Documented by: Admin: 01/24/21 08:27 Dose: 1 cap Documented by: Admin: 01/23/21 21:27 Dose: 1 cap [facility]: 01/23/21 08:10 Dose: 1 cap Documented by: Admin: 01/22/21 20:59 Dose: 1 cap [facility]: 01/22/21 08:20 Dose: 1 cap Documented by: Admin: 01/21/21 21:10 Dose: 1 cap Documented by: Admin: 01/21/21 10:49 Dose: 1 cap Documented by: Admin: 01/20/21 21:23 Dose: 1 cap Documented by: Admin: 01/20/21 18:13 Dose: 1 cap Documented by: CHIP Liraglutide (Liraglutide (Rdna Origin) 0.6 Mg/0.1 Ml 3 Ml Pen) 1.2 mg SUBCUT DAILY [facility] Admin: 01/27/21 08:56 Dose: 1.2 mg Documented by: Admin: 01/26/21 09:17 Dose: 1.2 mg Documented by: Admin: 01/25/21 08:37 Dose: 1.2 mg Documented by: Admin: 01/24/21 08:27 Dose: 1.2 mg Documented by: Admin: 01/23/21 10:15 Dose: 1.2 mg Documented by: Admin: 01/22/21 08:21 Dose: 1.2 mg Documented by: Admin: 01/21/21 08:32 Dose: 1.2 unit Documented by: Admin: 01/20/21 08:10 Dose: 1.2 unit Documented by: Admin: 01/19/21 08:06 Dose: 1.2 unit Documented by: MATT Lisinopril (Lisinopril 10 Mg Tab) 10 mg PO DAILY [facility] Last Admin: 01/27/21 08:56 Dose: 10 mg Documented by: Admin: 01/26/21 09:17 Dose: 10 mg Documented by: Admin: 01/25/21 08:37 Dose: 10 mg Documented by: Admin: 01/24/21 08:26 Dose: 10 mg Documented by: Admin: 01/23/21 08:10 Dose: 10 mg Documented by: COURTNEY Magnesium Hydroxide (Magnesium Hydroxide 400 Mg/5 Ml Susp 30 Ml Cup) 30 ml PO BID PRN PRN Reason: Constipation Last Admin: 01/21/21 04:03 Dose: 30 ml Documented by: GARLAND Metformin HCl (Metformin 500 Mg Tab) 1,000 mg PO BIDMEALS [facility] Admin: 01/27/21 08:53 Dose: 1,000 mg Documented by: Admin: 01/26/21 18:08 Dose: 1,000 mg Documented by: Admin: 01/26/21 08:39 Dose: 1,000 mg Documented by: Admin: 01/25/21 17:37 Dose: 1,000 mg Documented by: Admin: 01/25/21 08:36 Dose: 1,000 mg Documented by: Admin: 01/24/21 17:50 Dose: 1,000 mg Documented by: Admin: 01/24/21 08:25 Dose: 1,000 mg Documented by: Admin: 01/23/21 16:40 Dose: 1,000 mg Documented by: Admin: 01/23/21 07:51 Dose: 1,000 mg Documented by: Admin: 01/22/21 17:35 Dose: 1,000 mg Documented by: Admin: 01/22/21 08:19 Dose: 1,000 mg Documented by: Admin: 01/21/21 16:52 Dose: 1,000 mg Documented by: Admin: 01/21/21 08:22 Dose: 1,000 mg Documented by: Admin: 01/20/21 17:23 Dose: 1,000 mg Documented by: Admin: 01/20/21 08:03 Dose: 1,000 mg Documented by: Admin: 01/19/21 17:31 Dose: 1,000 mg Documented by: Admin: 01/19/21 07:43 Dose: 1,000 mg Documented by: Admin: 01/18/21 18:25 Dose: 1,000 mg Documented by: CHIP Morphine Sulfate (Morphine 2 Mg/Ml Syringe) 1 mg IVPUSH Q1H PRN PRN Reason: Breakthrough Pain Last Admin: 01/18/21 11:32 Dose: 1 mg Documented by: CHIP Ondansetron HCl (Ondansetron 4 Mg/2 Ml Sdv) 4 mg IVPUSH Q4H PRN PRN Reason: Nausea/Vomiting Oxycodone/Acetaminophen (Acetaminophen/Oxycodone 325-5 Mg Tab) 1 - 2 tab PO Q4H PRN PRN Reason: Pain Last Admin: 01/26/21 20:09 Dose: 1 tab Documented by: Admin: 01/25/21 21:22 Dose: 1 tab Documented by: Admin: 01/24/21 18:47 Dose: 1 tab Documented by: Admin: 01/24/21 00:29 Dose: 1 tab Documented by: Admin: 01/23/21 12:51 Dose: 1 tab Documented by: Admin: 01/23/21 07:48 Dose: 1 tab Documented by: Admin: 01/22/21 19:59 Dose: 1 tab Documented by: Admin: 01/22/21 12:36 Dose: 1 tab Documented by: Admin: 01/22/21 08:22 Dose: 1 tab Documented by: Admin: 01/21/21 23:30 Dose: 2 tab Documented by: Admin: 01/21/21 18:38 Dose: 2 tab Documented by: Admin: 01/20/21 18:10 Dose: 1 tab Documented by: Admin: 01/20/21 09:49 Dose: 1 tab Documented by: Admin: 01/20/21 03:42 Dose: 1 tab Documented by: Admin: 01/19/21 14:29 Dose: 2 tab Documented by: Admin: 01/19/21 10:21 Dose: 1 tab Documented by: Admin: 01/19/21 05:34 Dose: 1 tab Documented by: Admin: 01/18/21 23:54 Dose: 1 tab Documented by: ABIOLA - Assessment Assessment (Free Text/Narrative):: Pain controlled, no mental status changes, Swelling improving, making slow progress with PT, still no safe for home, awaiting placement for continued Rehab., continue current care
--- NOTE | 2021-01-27 12:10 | PCM.SURGPN ---
- General Info Date of Service: 01/25/21 POD#: 7 Functional Status: Reports: Pain Controlled, Tolerating Diet, Ambulating, Urinating - Review of Systems General: Reports: No Symptoms HEENT: Reports: No Symptoms Pulmonary: Reports: No Symptoms Cardiovascular: Reports: No Symptoms Gastrointestinal: Reports: No Symptoms Genitourinary: Reports: No Symptoms Musculoskeletal: Reports: Leg Pain, Joint Swelling Skin: Reports: Bruising Neurological: Reports: No Symptoms Psychiatric: Reports: No Symptoms - Patient Data Vitals - Most Recent: Last Vital Signs Temp 37.2 C 01/27/21 11:00 Pulse 101 H 01/27/21 11:00 Resp 16 01/27/21 11:00 BP 113/61 01/27/21 11:00 Pulse Ox 100 01/27/21 11:00 Orthostatic Blood Pressure [ 125/62 Standing] Orthostatic Blood Pressure [ 107/45 Sitting] Orthostatic Blood Pressure [ 117/51 Supine] Weight - Most Recent: 53.841 kg I&O - Last 24 Hours: Intake & Output 01/26/21 01/27/21 01/27/21 22:59 06:59 14:59 Intake Total 480 240 300 Balance 480 240 300 Lab Results Last 24 Hrs: Laboratory Results - last 24 hr 01/26/21 01/26/21 01/27/21 Range/Units 16:24 21:06 07:18 POC Glucose 165 H 186 H 132 H (74-106) mg/dL 01/27/21 Range/Units 11:34 POC Glucose 146 H (74-106) mg/dL Med Orders - Current: Current Medications Acetaminophen (Acetaminophen 325 Mg Tab) 650 mg PO Q4H PRN PRN Reason: Pain/Fever Last Admin: 01/21/21 08:21 Dose: 650 mg Documented by: Hydrocodone Bitart/Acetaminophen (Acetaminophen/Hydrocodone 325-5 Mg Tab) 1 tab PO Q4H PRN PRN Reason: Pain (mild 1-3) Last Admin: 01/27/21 08:52 Dose: 1 tab Documented by: Amlodipine Besylate (Amlodipine 5 Mg Tab) 2.5 mg PO DAILY SHELBI Last Admin: 01/27/21 08:55 Dose: 2.5 mg Documented by: Calcium Carbonate/Glycine (Calcium Carbonate 500 Mg Tab.Chew) 1,000 mg PO Q2H PRN PRN Reason: Indigestion Last Admin: 01/24/21 21:41 Dose: 1,000 mg Documented by: Dextrose (Glucose Gel 15 Gm In 37.5 Gm Tube) 15 gm PO ONETIME PRN PRN Reason: Hypoglycemia Dextrose/Water (50% Dextrose In Water 50 Ml Syringe) 50 ml IVPUSH ASDIRECTED PRN PRN Reason: Hypoglycemia Digoxin (Digoxin 125 Mcg Tab) 250 mcg PO DAILY@1300 [facility] Last Admin: 01/26/21 13:06 Dose: 250 mcg Documented by: Docusate Sodium (Docusate Sodium 100 Mg Cap) 100 mg PO BID [facility] Last Admin: 01/27/21 08:53 Dose: 100 mg Documented by: Enoxaparin Sodium (Enoxaparin 30 Mg/0.3 Ml Syringe) 30 mg SUBCUT DAILY [facility] Last Admin: 01/27/21 08:55 Dose: 30 mg Documented by: Glucagon (Glucagon,Human Recombinant 1 Mg Vial) 1 mg IM ASDIRECTED PRN PRN Reason: Hypoglycemia Hydrochlorothiazide (Hydrochlorothiazide 25 Mg Tab) 25 mg PO DAILY [facility] Last Admin: 01/27/21 08:54 Dose: 25 mg Documented by: Insulin Glargine (Insulin Glargine,Human Rec. Analog 100 Units/Ml 3 Ml Pen) 16 units SUBCUT BEDTIME [facility] Last Admin: 01/26/21 21:45 Dose: 16 units Documented by: Insulin Human Lispro (Insulin Lispro 100 Unit/Ml 3 Ml Kwikpen) 0 unit SUBCUT QIDACANDBED [facility]; Protocol Last Admin: 01/27/21 07:23 Dose: Not Given Documented by: Lactobacillus Rhamnosus (Lactobacillus Rhamnosus Gg (Probiotic) Cap) 1 cap PO BID [facility] Last Admin: 01/27/21 08:53 Dose: 1 cap Documented by: Liraglutide (Liraglutide (Rdna Origin) 0.6 Mg/0.1 Ml 3 Ml Pen) 1.2 mg SUBCUT DAILY [facility] Last Admin: 01/27/21 08:56 Dose: 1.2 mg Documented by: Lisinopril (Lisinopril 10 Mg Tab) 10 mg PO DAILY [facility] Last Admin: 01/27/21 08:56 Dose: 10 mg Documented by: Magnesium Hydroxide (Magnesium Hydroxide 400 Mg/5 Ml Susp 30 Ml Cup) 30 ml PO BID PRN PRN Reason: Constipation Last Admin: 01/21/21 04:03 Dose: 30 ml Documented by: Metformin HCl (Metformin 500 Mg Tab) 1,000 mg PO BIDMEALS [facility] Last Admin: 01/27/21 08:53 Dose: 1,000 mg Documented by: Morphine Sulfate (Morphine 2 Mg/Ml Syringe) 1 mg IVPUSH Q1H PRN PRN Reason: Breakthrough Pain Last Admin: 01/18/21 11:32 Dose: 1 mg Documented by: Ondansetron HCl (Ondansetron 4 Mg/2 Ml Sdv) 4 mg IVPUSH Q4H PRN PRN Reason: Nausea/Vomiting Oxycodone/Acetaminophen (Acetaminophen/Oxycodone 325-5 Mg Tab) 1 - 2 tab PO Q4H PRN PRN Reason: Pain Last Admin: 01/26/21 20:09 Dose: 1 tab Documented by: Discontinued Medications Albuterol/Ipratropium (Albuterol/Ipratropium 3.0-0.5 Mg/3 Ml Neb Soln) 3 ml NEB ONETIME ONE Stop: 01/18/21 07:36 Last Admin: 01/18/21 07:43 Dose: 3 ml Documented by: Bandage/Support Products (Nozin Nasal Packager And Strapper) 1 applic NASBOTH BID [facility] Last Admin: 01/18/21 06:43 Dose: 1 applic Documented by: Bandage/Support Products (Nozin Nasal Packager And Strapper) 1 applic NASBOTH BID [facility] Stop: 01/24/21 21:01 Last Admin: 01/24/21 20:07 Dose: 1 applic Documented by: Dextrose/Water (50% Dextrose In Water 50 Ml Syringe) 50 ml IVPUSH ASDIRECTED PRN PRN Reason: Hypoglycemia Fentanyl (Fentanyl 100 Mcg/2 Ml Sdv) Confirm Administered Dose 100 mcg .ROUTE .STK-MED ONE Stop: 01/18/21 07:51 Glucagon (Glucagon,Human Recombinant 1 Mg Vial) 1 mg IM ASDIRECTED PRN PRN Reason: Hypoglycemia Cefazolin Sodium/Dextrose (Ancef 2 Gm/50 Ml) 50 mls @ 100 mls/hr IV ONETIME ONE Stop: 01/18/21 06:29 Last Admin: 01/18/21 07:50 Dose: 100 mls/hr Documented by: Lactated Ringer's (Ringers, Lactated) 1,000 mls @ 75 mls/hr IV ASDIRECTED [facility] Last Admin: 01/18/21 06:42 Dose: 75 mls/hr Documented by: Lactated Ringer's (Ringers, Lactated) Confirm Administered Dose 1,000 mls @ as directed .ROUTE .STK-MED ONE Stop: 01/18/21 08:33 Sodium Chloride (Normal Saline) 1,000 mls @ 125 mls/hr IV ASDIRECTED [facility] Last Admin: 01/19/21 04:34 Dose: 125 mls/hr Documented by: Cefazolin Sodium/Dextrose 1 gm (/ Premix) 50 mls @ 200 mls/hr IV Q8H SHELBI Stop: 01/19/21 06:14 Last Admin: 01/19/21 05:31 Dose: 200 mls/hr Documented by: Insulin Glargine (Insulin Glargine,Human Rec. Analog 100 Units/Ml 3 Ml Pen) 5 units SUBCUT BEDTIME [facility] Last Admin: 01/18/21 21:18 Dose: 5 units Documented by: Insulin Glargine (Insulin Glargine,Human Rec. Analog 100 Units/Ml 3 Ml Pen) 10 units SUBCUT BEDTIME [facility] Last Admin: 01/21/21 21:11 Dose: 10 units Documented by: Insulin Glargine (Insulin Glargine,Human Rec. Analog 100 Units/Ml 3 Ml Pen) 14 units SUBCUT BEDTIME SHELBI Insulin Glargine (Insulin Glargine,Human Rec. Analog 100 Units/Ml 3 Ml Pen) 4 units SUBCUT BID ONE Stop: 01/21/21 22:01 Last Admin: 01/21/21 23:26 Dose: 4 units Documented by: Insulin Human Lispro (Insulin Lispro 100 Unit/Ml 3 Ml Kwikpen) 1 unit SUBCUT QIDACANDBED [facility]; Protocol Stop: 01/18/21 19:00 Last Admin: 01/19/21 00:30 Dose: Not Given Documented by: Insulin Human Lispro (Insulin Lispro 100 Unit/Ml 3 Ml Kwikpen) 0 unit SUBCUT QIDACANDBED [facility]; Protocol Stop: 01/22/21 20:00 Last Admin: 01/19/21 07:43 Dose: 1 units Documented by: Lisinopril 20 mg/ Lisinopril (10 mg) 30 mg PO DAILY [facility] Last Admin: 01/22/21 08:21 Dose: 30 mg Documented by: Midazolam HCl (Midazolam 1 Mg/Ml 2 Ml Sdv) Confirm Administered Dose 2 mg .ROUTE .STK-MED ONE Stop: 01/18/21 07:51 Non-Formulary Medication (Lisinopril [Lisinopril]) 30 mg PO DAILY SHELBI Povidone Iodine (Povidone-Iodine 10% Soln 118.25 Ml Bottle) Confirm Administered Dose 1 ml .ROUTE .STK-MED ONE Stop: 01/18/21 06:46 Last Admin: 01/18/21 08:25 Dose: 30 ml Documented by: Propofol (Propofol 200 Mg/20 Ml Sdv) Confirm Administered Dose 200 mg .ROUTE . STK-MED ONE Stop: 01/18/21 07:51 - Exam Wound/Incisions: Healing Well, No Drainage General: Alert, Oriented Cardiovascular: Regular Rate, Regular Rhythm Extremities: Joint Swelling (Swelling improved, large ecchymosis posterior leg), Limited Range of Motion Skin: Warm, Dry Neurological: No New Focal Deficit Psy/Mental Status: Alert, Normal Affect, Normal Mood Sepsis Event Note - Evaluation Sepsis Screening Result: Possible Sepsis Risk - Focused Exam Vital Signs: Vital Signs Temp Temp Pulse Resp BP BP Pulse Ox 01/27/21 11:00 37.2 C 101 H 16 113/61 100 01/27/21 08:56 124/61 01/27/21 08:55 124/61 01/27/21 07:00 36.8 C 99 16 124/61 95 01/27/21 02:00 36.5 C - Problem List & Annotations (1) Status post left knee replacement SNOMED Code(s): 0956284552223, 601092050, 5749792668317 Code(s): Z96.652 - PRESENCE OF LEFT ARTIFICIAL KNEE JOINT Status: Acute Current Visit: Yes - Problem List Review Problem List Initiated/Reviewed/Updated: Yes - My Orders Last 24 Hours: Active Orders 24 hr Category Date Time Status Ready for Discharge [RC] PER UNIT ROUTINE Care 01/27/21 11:57 Ordered GLUCOSE POC LAB TO COLLECT JPM [POC] QIDACANDBED Lab 01/27/21 16:30 Ordered GLUCOSE POC LAB TO COLLECT JPM [POC] QIDACANDBED Lab 01/27/21 21:00 Ordered GLUCOSE POC LAB TO COLLECT JPM [POC] QIDACANDBED Lab 01/28/21 07:30 Ordered GLUCOSE POC LAB TO COLLECT JPM [POC] QIDACANDBED Lab 01/28/21 11:30 Ordered GLUCOSE POC LAB TO COLLECT JPM [POC] QIDACANDBED Lab 01/28/21 16:30 Ordered GLUCOSE POC LAB TO COLLECT JPM [POC] QIDACANDBED Lab 01/28/21 21:00 Ordered GLUCOSE POC LAB TO COLLECT JPM [POC] QIDACANDBED Lab 01/29/21 07:30 Ordered Medication Orders Acetaminophen (Acetaminophen 325 Mg Tab) 650 mg PO Q4H PRN PRN Reason: Pain/Fever Last Admin: 01/21/21 08:21 Dose: 650 mg Documented by: CHIP Hydrocodone Bitart/Acetaminophen (Acetaminophen/Hydrocodone 325-5 Mg Tab) 1 tab PO Q4H PRN PRN Reason: Pain (mild 1-3) Last Admin: 01/27/21 08:52 Dose: 1 tab Documented by: Admin: 01/25/21 15:36 Dose: 1 tab Documented by: Admin: 01/18/21 19:37 Dose: 1 tab Documented by: Admin: 01/18/21 14:47 Dose: 1 tab Documented by: Admin: 01/18/21 10:56 Dose: 1 tab Documented by: CHIP Amlodipine Besylate (Amlodipine 5 Mg Tab) 2.5 mg PO DAILY [facility] Last Admin: 01/27/21 08:55 Dose: 2.5 mg Documented by: Admin: 01/26/21 09:17 Dose: 2.5 mg Documented by: Admin: 01/25/21 08:37 Dose: 2.5 mg Documented by: Admin: 01/24/21 08:27 Dose: 2.5 mg Documented by: Admin: 01/23/21 08:10 Dose: 2.5 mg Documented by: Admin: 01/22/21 08:20 Dose: 2.5 mg Documented by: Admin: 01/21/21 08:29 Dose: 2.5 mg Documented by: Admin: 01/20/21 08:04 Dose: 2.5 mg Documented by: Admin: 01/19/21 08:05 Dose: 2.5 mg Documented by: MATT Calcium Carbonate/Glycine (Calcium Carbonate 500 Mg Tab.Chew) 1,000 mg PO Q2H PRN PRN Reason: Indigestion Last Admin: 01/24/21 21:41 Dose: 1,000 mg Documented by: Admin: 01/20/21 04:11 Dose: 1,000 mg Documented by: ABIOLA Dextrose (Glucose Gel 15 Gm In 37.5 Gm Tube) 15 gm PO ONETIME PRN PRN Reason: Hypoglycemia Dextrose/Water (50% Dextrose In Water 50 Ml Syringe) 50 ml IVPUSH ASDIRECTED PRN PRN Reason: Hypoglycemia Digoxin (Digoxin 125 Mcg Tab) 250 mcg PO DAILY@1300 [facility] Last Admin: 01/26/21 13:06 Dose: 250 mcg Documented by: Admin: 01/25/21 13:59 Dose: 250 mcg Documented by: Admin: 01/24/21 12:46 Dose: 250 mcg Documented by: Admin: 01/23/21 12:11 Dose: 250 mcg Documented by: Admin: 01/22/21 13:13 Dose: 250 mcg Documented by: Admin: 01/21/21 13:37 Dose: 250 mcg Documented by: Admin: 01/20/21 13:56 Dose: 250 mcg Documented by: Admin: 01/19/21 12:29 Dose: 250 mcg Documented by: MATT Docusate Sodium (Docusate Sodium 100 Mg Cap) 100 mg PO BID [facility] Last Admin: 01/27/21 08:53 Dose: 100 mg Documented by: Admin: 01/26/21 20:10 Dose: 100 mg Documented by: Admin: 01/26/21 09:17 Dose: 100 mg Documented by: Admin: 01/25/21 21:14 Dose: 100 mg Documented by: Admin: 01/25/21 08:37 Dose: 100 mg Documented by: Admin: 01/24/21 20:07 Dose: 100 mg Documented by: Admin: 01/24/21 08:27 Dose: 100 mg Documented by: Admin: 01/23/21 21:26 Dose: 100 mg Documented by: Admin: 01/23/21 08:11 Dose: 100 mg Documented by: Admin: 01/22/21 21:00 Dose: 100 mg Documented by: Admin: 01/22/21 08:19 Dose: 100 mg Documented by: Admin: 01/21/21 21:10 Dose: 100 mg Documented by: Admin: 01/21/21 08:28 Dose: Not Given Documented by: Admin: 01/20/21 21:20 Dose: 100 mg Documented by: Admin: 01/20/21 08:04 Dose: 100 mg Documented by: Admin: 01/19/21 21:34 Dose: 100 mg Documented by: Admin: 01/19/21 08:04 Dose: 100 mg Documented by: Admin: 01/18/21 19:59 Dose: 100 mg Documented by: ABIOLA Enoxaparin Sodium (Enoxaparin 30 Mg/0.3 Ml Syringe) 30 mg SUBCUT DAILY [facility] Admin: 01/27/21 08:55 Dose: 30 mg Documented by: Admin: 01/26/21 09:17 Dose: 30 mg Documented by: Admin: 01/25/21 08:36 Dose: 30 mg Documented by: Admin: 01/24/21 08:26 Dose: 30 mg Documented by: Admin: 01/23/21 08:10 Dose: 30 mg Documented by: Admin: 01/22/21 08:20 Dose: 30 mg Documented by: Admin: 01/21/21 08:31 Dose: 30 mg Documented by: Admin: 01/20/21 08:05 Dose: 30 mg Documented by: Admin: 01/19/21 08:04 Dose: 30 mg Documented by: MATT Glucagon (Glucagon,Human Recombinant 1 Mg Vial) 1 mg IM ASDIRECTED PRN PRN Reason: Hypoglycemia Hydrochlorothiazide (Hydrochlorothiazide 25 Mg Tab) 25 mg PO DAILY [facility] Admin: 01/27/21 08:54 Dose: 25 mg Documented by: Admin: 01/26/21 09:17 Dose: 25 mg Documented by: Admin: 01/25/21 08:37 Dose: 25 mg Documented by: Admin: 01/24/21 08:25 Dose: 25 mg Documented by: Admin: 01/23/21 08:11 Dose: 25 mg Documented by: Admin: 01/22/21 08:20 Dose: 25 mg Documented by: Admin: 01/21/21 08:28 Dose: 25 mg Documented by: Admin: 01/20/21 08:05 Dose: 25 mg Documented by: Admin: 01/19/21 08:05 Dose: 25 mg Documented by: MATT Insulin Glargine (Insulin Glargine,Human Rec. Analog 100 Units/Ml 3 Ml Pen) 16 units SUBCUT BEDTIME SHE[facility] Last Admin: 01/26/21 21:45 Dose: 16 units Documented by: ANUJA Cosigned by: GARLAND Admin: 01/25/21 21:09 Dose: 16 units Documented by: ALIE Cosigned by: SUJIT Admin: 01/24/21 21:42 Dose: 16 units Documented by: ALIE Cosigned by: GEE Admin: 01/23/21 21:24 Dose: 16 units Documented by: AVA Cosigned by: ORTEGA Admin: 01/22/21 21:05 Dose: 16 units Documented by: AVA Cosigned by: CODY Insulin Human Lispro (Insulin Lispro 100 Unit/Ml 3 Ml Kwikpen) 0 unit SUBCUT QIDACANDBED [facility]; Protocol Last Admin: 01/27/21 07:23 Dose: Not Given Documented by: Admin: 01/26/21 21:44 Dose: 1 unit Documented by: ANUJA Cosigned by: GARLAND Admin: 01/26/21 18:08 Dose: 1 unit Documented by: ENRIKE Cosigned by: THELMA Admin: 01/26/21 12:20 Dose: 1 unit Documented by: ENRIKE Cosigned by: SHANTELL Admin: 01/26/21 08:39 Dose: 1 unit Documented by: ENRIKE Cosigned by: LIZZIE Admin: 01/25/21 21:10 Dose: 1 unit Documented by: ALIE Cosigned by: SUJIT Admin: 01/25/21 16:56 Dose: Not Given Documented by: Admin: 01/25/21 12:34 Dose: Not Given Documented by: Admin: 01/25/21 08:35 Dose: Not Given Documented by: Admin: 01/24/21 21:43 Dose: 1 unit Documented by: ALIE Cosigned by: GEE Admin: 01/24/21 17:11 Dose: Not Given Documented by: Admin: 01/24/21 11:35 Dose: Not Given Documented by: Admin: 01/24/21 08:05 Dose: Not Given Documented by: Admin: 01/23/21 21:25 Dose: 3 unit Documented by: AVA Cosigned by: ORTEGA Admin: 01/23/21 16:38 Dose: Not Given Documented by: Admin: 01/23/21 11:46 Dose: 1 unit Documented by: SHANTELL Israeligned by: COURTNEY Admin: 01/23/21 07:52 Dose: Not Given Documented by: Admin: 01/22/21 20:57 Dose: Not Given Documented by: Admin: 01/22/21 17:35 Dose: 1 unit Documented by: ANUJA Israeligned by: SUJIT Admin: 01/22/21 11:24 Dose: Not Given Documented by: Admin: 01/22/21 08:19 Dose: 1 unit Documented by: ANUJA Cosigned by: SUJIT Admin: 01/21/21 21:10 Dose: 2 unit Documented by: GARLAND Israeligned by: SURYA Admin: 01/21/21 16:52 Dose: Not Given Documented by: Admin: 01/21/21 13:34 Dose: 3 unit Documented by: CHIP Israeligned by: SHANTELL Admin: 01/21/21 08:22 Dose: 1 unit Documented by: CHIP Jeffries by: ABIGAIL Admin: 01/20/21 21:21 Dose: Not Given Documented by: Admin: 01/20/21 17:20 Dose: 2 unit Documented by: CHIP Israeligned by: KATHLEEN Admin: 01/20/21 13:54 Dose: 1 unit Documented by: CHIP Coszeenat by: ROBERTO Admin: 01/20/21 08:07 Dose: Not Given Documented by: Admin: 01/19/21 21:36 Dose: Not Given Documented by: Admin: 01/19/21 17:31 Dose: 2 unit Documented by: MATT Israeligned by: ANGELIA Lactobacillus Rhamnosus (Lactobacillus Rhamnosus Gg (Probiotic) Cap) 1 cap PO BID [facility] Admin: 01/27/21 08:53 Dose: 1 cap Documented by: Admin: 01/26/21 20:10 Dose: 1 cap Documented by: Admin: 01/26/21 09:17 Dose: 1 cap Documented by: Admin: 01/25/21 21:14 Dose: 1 cap Documented by: Admin: 01/25/21 08:36 Dose: 1 cap Documented by: Admin: 01/24/21 20:07 Dose: 1 cap Documented by: Admin: 01/24/21 08:27 Dose: 1 cap Documented by: Admin: 01/23/21 21:27 Dose: 1 cap Documented by: Admin: 01/23/21 08:10 Dose: 1 cap Documented by: Admin: 01/22/21 20:59 Dose: 1 cap Documented by: Admin: 01/22/21 08:20 Dose: 1 cap Documented by: Admin: 01/21/21 21:10 Dose: 1 cap Documented by: Admin: 01/21/21 10:49 Dose: 1 cap Documented by: Admin: 01/20/21 21:23 Dose: 1 cap Documented by: Admin: 01/20/21 18:13 Dose: 1 cap Documented by: CHIP Liraglutide (Liraglutide (Rdna Origin) 0.6 Mg/0.1 Ml 3 Ml Pen) 1.2 mg SUBCUT DAILY [facility] Admin: 01/27/21 08:56 Dose: 1.2 mg Documented by: Admin: 01/26/21 09:17 Dose: 1.2 mg Documented by: Admin: 01/25/21 08:37 Dose: 1.2 mg Documented by: Admin: 01/24/21 08:27 Dose: 1.2 mg Documented by: Admin: 01/23/21 10:15 Dose: 1.2 mg Documented by: Admin: 01/22/21 08:21 Dose: 1.2 mg Documented by: Admin: 01/21/21 08:32 Dose: 1.2 unit Documented by: Admin: 01/20/21 08:10 Dose: 1.2 unit Documented by: Admin: 01/19/21 08:06 Dose: 1.2 unit Documented by: MATT Lisinopril (Lisinopril 10 Mg Tab) 10 mg PO DAILY [facility] Admin: 01/27/21 08:56 Dose: 10 mg Documented by: Admin: 01/26/21 09:17 Dose: 10 mg Documented by: Admin: 01/25/21 08:37 Dose: 10 mg Documented by: Admin: 01/24/21 08:26 Dose: 10 mg Documented by: Admin: 01/23/21 08:10 Dose: 10 mg Documented by: COURTNEY Magnesium Hydroxide (Magnesium Hydroxide 400 Mg/5 Ml Susp 30 Ml Cup) 30 ml PO BID PRN PRN Reason: Constipation Last Admin: 01/21/21 04:03 Dose: 30 ml Documented by: GARLAND Metformin HCl (Metformin 500 Mg Tab) 1,000 mg PO BIDMEALS [facility] Admin: 01/27/21 08:53 Dose: 1,000 mg Documented by: Admin: 01/26/21 18:08 Dose: 1,000 mg Documented by: Admin: 01/26/21 08:39 Dose: 1,000 mg Documented by: Admin: 01/25/21 17:37 Dose: 1,000 mg Documented by: Admin: 01/25/21 08:36 Dose: 1,000 mg Documented by: Admin: 01/24/21 17:50 Dose: 1,000 mg Documented by: Admin: 01/24/21 08:25 Dose: 1,000 mg Documented by: Admin: 01/23/21 16:40 Dose: 1,000 mg Documented by: Admin: 01/23/21 07:51 Dose: 1,000 mg Documented by: Admin: 01/22/21 17:35 Dose: 1,000 mg Documented by: Admin: 01/22/21 08:19 Dose: 1,000 mg Documented by: Admin: 01/21/21 16:52 Dose: 1,000 mg Documented by: Admin: 01/21/21 08:22 Dose: 1,000 mg Documented by: Admin: 01/20/21 17:23 Dose: 1,000 mg Documented by: Admin: 01/20/21 08:03 Dose: 1,000 mg Documented by: Admin: 01/19/21 17:31 Dose: 1,000 mg Documented by: Admin: 01/19/21 07:43 Dose: 1,000 mg Documented by: Admin: 01/18/21 18:25 Dose: 1,000 mg Documented by: CHIP Morphine Sulfate (Morphine 2 Mg/Ml Syringe) 1 mg IVPUSH Q1H PRN PRN Reason: Breakthrough Pain Last Admin: 01/18/21 11:32 Dose: 1 mg Documented by: CHIP Ondansetron HCl (Ondansetron 4 Mg/2 Ml Sdv) 4 mg IVPUSH Q4H PRN PRN Reason: Nausea/Vomiting Oxycodone/Acetaminophen (Acetaminophen/Oxycodone 325-5 Mg Tab) 1 - 2 tab PO Q4H PRN PRN Reason: Pain Last Admin: 01/26/21 20:09 Dose: 1 tab Documented by: Admin: 01/25/21 21:22 Dose: 1 tab Documented by: Admin: 01/24/21 18:47 Dose: 1 tab Documented by: Admin: 01/24/21 00:29 Dose: 1 tab Documented by: Admin: 01/23/21 12:51 Dose: 1 tab Documented by: Admin: 01/23/21 07:48 Dose: 1 tab Documented by: Admin: 01/22/21 19:59 Dose: 1 tab Documented by: Admin: 01/22/21 12:36 Dose: 1 tab Documented by: Admin: 01/22/21 08:22 Dose: 1 tab Documented by: Admin: 01/21/21 23:30 Dose: 2 tab Documented by: Admin: 01/21/21 18:38 Dose: 2 tab Documented by: Admin: 01/20/21 18:10 Dose: 1 tab Documented by: Admin: 01/20/21 09:49 Dose: 1 tab Documented by: Admin: 01/20/21 03:42 Dose: 1 tab Documented by: Admin: 01/19/21 14:29 Dose: 2 tab Documented by: Admin: 01/19/21 10:21 Dose: 1 tab Documented by: Admin: 01/19/21 05:34 Dose: 1 tab Documented by: Admin: 01/18/21 23:54 Dose: 1 tab Documented by: ABIOLA - Assessment Assessment (Free Text/Narrative):: Did better with PT and has been able to get into hallway for short distances, still no word on bed availability at SNF or rehab facility, continue current treatment
--- NOTE | 2021-01-27 12:13 | PCM.SURGPN ---
- General Info Date of Service: 01/26/21 POD#: 8 Functional Status: Reports: Pain Controlled, Tolerating Diet, Ambulating, Urinating - Review of Systems General: Reports: No Symptoms HEENT: Reports: No Symptoms Pulmonary: Reports: No Symptoms Cardiovascular: Reports: No Symptoms Gastrointestinal: Reports: No Symptoms Genitourinary: Reports: No Symptoms Musculoskeletal: Reports: Leg Pain, Joint Swelling Skin: Reports: No Symptoms Neurological: Reports: No Symptoms Psychiatric: Reports: No Symptoms - Patient Data Vitals - Most Recent: Last Vital Signs Temp 37.2 C 01/27/21 11:00 Pulse 101 H 01/27/21 11:00 Resp 16 01/27/21 11:00 BP 113/61 01/27/21 11:00 Pulse Ox 100 01/27/21 11:00 Orthostatic Blood Pressure [ 125/62 Standing] Orthostatic Blood Pressure [ 107/45 Sitting] Orthostatic Blood Pressure [ 117/51 Supine] Weight - Most Recent: 53.841 kg I&O - Last 24 Hours: Intake & Output 01/26/21 01/27/21 01/27/21 22:59 06:59 14:59 Intake Total 480 240 300 Balance 480 240 300 Lab Results Last 24 Hrs: Laboratory Results - last 24 hr 01/26/21 01/26/21 01/27/21 Range/Units 16:24 21:06 07:18 POC Glucose 165 H 186 H 132 H (74-106) mg/dL 01/27/21 Range/Units 11:34 POC Glucose 146 H (74-106) mg/dL Med Orders - Current: Current Medications Acetaminophen (Acetaminophen 325 Mg Tab) 650 mg PO Q4H PRN PRN Reason: Pain/Fever Last Admin: 01/21/21 08:21 Dose: 650 mg Documented by: Hydrocodone Bitart/Acetaminophen (Acetaminophen/Hydrocodone 325-5 Mg Tab) 1 tab PO Q4H PRN PRN Reason: Pain (mild 1-3) Last Admin: 01/27/21 08:52 Dose: 1 tab Documented by: Amlodipine Besylate (Amlodipine 5 Mg Tab) 2.5 mg PO DAILY [facility] Last Admin: 01/27/21 08:55 Dose: 2.5 mg Documented by: Calcium Carbonate/Glycine (Calcium Carbonate 500 Mg Tab.Chew) 1,000 mg PO Q2H PRN PRN Reason: Indigestion Last Admin: 01/24/21 21:41 Dose: 1,000 mg Documented by: Dextrose (Glucose Gel 15 Gm In 37.5 Gm Tube) 15 gm PO ONETIME PRN PRN Reason: Hypoglycemia Dextrose/Water (50% Dextrose In Water 50 Ml Syringe) 50 ml IVPUSH ASDIRECTED PRN PRN Reason: Hypoglycemia Digoxin (Digoxin 125 Mcg Tab) 250 mcg PO DAILY@1300 [facility] Last Admin: 01/26/21 13:06 Dose: 250 mcg Documented by: Docusate Sodium (Docusate Sodium 100 Mg Cap) 100 mg PO BID [facility] Last Admin: 01/27/21 08:53 Dose: 100 mg Documented by: Enoxaparin Sodium (Enoxaparin 30 Mg/0.3 Ml Syringe) 30 mg SUBCUT DAILY [facility] Last Admin: 01/27/21 08:55 Dose: 30 mg Documented by: Glucagon (Glucagon,Human Recombinant 1 Mg Vial) 1 mg IM ASDIRECTED PRN PRN Reason: Hypoglycemia Hydrochlorothiazide (Hydrochlorothiazide 25 Mg Tab) 25 mg PO DAILY [facility] Last Admin: 01/27/21 08:54 Dose: 25 mg Documented by: Insulin Glargine (Insulin Glargine,Human Rec. Analog 100 Units/Ml 3 Ml Pen) 16 units SUBCUT BEDTIME [facility] Last Admin: 01/26/21 21:45 Dose: 16 units Documented by: Insulin Human Lispro (Insulin Lispro 100 Unit/Ml 3 Ml Kwikpen) 0 unit SUBCUT QIDACANDBED [facility]; Protocol Last Admin: 01/27/21 07:23 Dose: Not Given Documented by: Lactobacillus Rhamnosus (Lactobacillus Rhamnosus Gg (Probiotic) Cap) 1 cap PO BID [facility] Last Admin: 01/27/21 08:53 Dose: 1 cap Documented by: Liraglutide (Liraglutide (Rdna Origin) 0.6 Mg/0.1 Ml 3 Ml Pen) 1.2 mg SUBCUT DAILY [facility] Last Admin: 01/27/21 08:56 Dose: 1.2 mg Documented by: Lisinopril (Lisinopril 10 Mg Tab) 10 mg PO DAILY [facility] Last Admin: 01/27/21 08:56 Dose: 10 mg Documented by: Magnesium Hydroxide (Magnesium Hydroxide 400 Mg/5 Ml Susp 30 Ml Cup) 30 ml PO BID PRN PRN Reason: Constipation Last Admin: 01/21/21 04:03 Dose: 30 ml Documented by: Metformin HCl (Metformin 500 Mg Tab) 1,000 mg PO BIDMEALS [facility] Last Admin: 01/27/21 08:53 Dose: 1,000 mg Documented by: Morphine Sulfate (Morphine 2 Mg/Ml Syringe) 1 mg IVPUSH Q1H PRN PRN Reason: Breakthrough Pain Last Admin: 01/18/21 11:32 Dose: 1 mg Documented by: Ondansetron HCl (Ondansetron 4 Mg/2 Ml Sdv) 4 mg IVPUSH Q4H PRN PRN Reason: Nausea/Vomiting Oxycodone/Acetaminophen (Acetaminophen/Oxycodone 325-5 Mg Tab) 1 - 2 tab PO Q4H PRN PRN Reason: Pain Last Admin: 01/26/21 20:09 Dose: 1 tab Documented by: Discontinued Medications Albuterol/Ipratropium (Albuterol/Ipratropium 3.0-0.5 Mg/3 Ml Neb Soln) 3 ml NEB ONETIME ONE Stop: 01/18/21 07:36 Last Admin: 01/18/21 07:43 Dose: 3 ml Documented by: Bandage/Support Products (Nozin Nasal Bracelet And Brooch Maker) 1 applic NASBOTH BID [facility] Last Admin: 01/18/21 06:43 Dose: 1 applic Documented by: Bandage/Support Products (Nozin Nasal Bracelet And Brooch Maker) 1 applic NASBOTH BID [facility] Stop: 01/24/21 21:01 Last Admin: 01/24/21 20:07 Dose: 1 applic Documented by: Dextrose/Water (50% Dextrose In Water 50 Ml Syringe) 50 ml IVPUSH ASDIRECTED PRN PRN Reason: Hypoglycemia Fentanyl (Fentanyl 100 Mcg/2 Ml Sdv) Confirm Administered Dose 100 mcg .ROUTE .STK-MED ONE Stop: 01/18/21 07:51 Glucagon (Glucagon,Human Recombinant 1 Mg Vial) 1 mg IM ASDIRECTED PRN PRN Reason: Hypoglycemia Cefazolin Sodium/Dextrose (Ancef 2 Gm/50 Ml) 50 mls @ 100 mls/hr IV ONETIME ONE Stop: 01/18/21 06:29 Last Admin: 01/18/21 07:50 Dose: 100 mls/hr Documented by: Lactated Ringer's (Ringers, Lactated) 1,000 mls @ 75 mls/hr IV ASDIRECTED [facility] Last Admin: 01/18/21 06:42 Dose: 75 mls/hr Documented by: Lactated Ringer's (Ringers, Lactated) Confirm Administered Dose 1,000 mls @ as directed .ROUTE .STK-MED ONE Stop: 01/18/21 08:33 Sodium Chloride (Normal Saline) 1,000 mls @ 125 mls/hr IV ASDIRECTED [facility] Last Admin: 01/19/21 04:34 Dose: 125 mls/hr Documented by: Cefazolin Sodium/Dextrose 1 gm (/ Premix) 50 mls @ 200 mls/hr IV Q8H [facility] Stop: 01/19/21 06:14 Last Admin: 01/19/21 05:31 Dose: 200 mls/hr Documented by: Insulin Glargine (Insulin Glargine,Human Rec. Analog 100 Units/Ml 3 Ml Pen) 5 units SUBCUT BEDTIME [facility] Last Admin: 01/18/21 21:18 Dose: 5 units Documented by: Insulin Glargine (Insulin Glargine,Human Rec. Analog 100 Units/Ml 3 Ml Pen) 10 units SUBCUT BEDTIME [facility] Last Admin: 01/21/21 21:11 Dose: 10 units Documented by: Insulin Glargine (Insulin Glargine,Human Rec. Analog 100 Units/Ml 3 Ml Pen) 14 units SUBCUT BEDTIME [facility] Insulin Glargine (Insulin Glargine,Human Rec. Analog 100 Units/Ml 3 Ml Pen) 4 units SUBCUT BID ONE Stop: 01/21/21 22:01 Last Admin: 01/21/21 23:26 Dose: 4 units Documented by: Insulin Human Lispro (Insulin Lispro 100 Unit/Ml 3 Ml Kwikpen) 1 unit SUBCUT QIDACANDBED [facility]; Protocol Stop: 01/18/21 19:00 Last Admin: 01/19/21 00:30 Dose: Not Given Documented by: Insulin Human Lispro (Insulin Lispro 100 Unit/Ml 3 Ml Kwikpen) 0 unit SUBCUT QIDACANDBED [facility]; Protocol Stop: 01/22/21 20:00 Last Admin: 01/19/21 07:43 Dose: 1 units Documented by: Lisinopril 20 mg/ Lisinopril (10 mg) 30 mg PO DAILY [facility] Last Admin: 01/22/21 08:21 Dose: 30 mg Documented by: Midazolam HCl (Midazolam 1 Mg/Ml 2 Ml Sdv) Confirm Administered Dose 2 mg .ROUTE .STK-MED ONE Stop: 01/18/21 07:51 Non-Formulary Medication (Lisinopril [Lisinopril]) 30 mg PO DAILY [facility] Povidone Iodine (Povidone-Iodine 10% Soln 118.25 Ml Bottle) Confirm Administered Dose 1 ml .ROUTE .STK-MED ONE Stop: 01/18/21 06:46 Last Admin: 01/18/21 08:25 Dose: 30 ml Documented by: Propofol (Propofol 200 Mg/20 Ml Sdv) Confirm Administered Dose 200 mg .ROUTE .STK-MED ONE Stop: 01/18/21 07:51 - Exam Wound/Incisions: Healing Well, No Drainage General: Alert, Oriented Cardiovascular: Regular Rate, Regular Rhythm Extremities: Other (Swelling continues to improve, ROM slightly better) Skin: Warm, Dry Neurological: No New Focal Deficit Psy/Mental Status: Alert, Normal Affect, Normal Mood Sepsis Event Note - Evaluation Sepsis Screening Result: Possible Sepsis Risk - Focused Exam Vital Signs: Vital Signs Temp Temp Pulse Resp BP BP Pulse Ox 01/27/21 11:00 37.2 C 101 H 16 113/61 100 01/27/21 08:56 124/61 01/27/21 08:55 124/61 01/27/21 07:00 36.8 C 99 16 124/61 95 01/27/21 02:00 36.5 C - Problem List & Annotations (1) Status post left knee replacement SNOMED Code(s): 3552755543418, 074023629, 5389455612362 Code(s): Z96.652 - PRESENCE OF LEFT ARTIFICIAL KNEE JOINT Status: Acute Current Visit: Yes - Problem List Review Problem List Initiated/Reviewed/Updated: Yes - My Orders Last 24 Hours: Active Orders 24 hr Category Date Time Status Ready for Discharge [RC] PER UNIT ROUTINE Care 01/27/21 11:57 Ordered GLUCOSE POC LAB TO COLLECT JPM [POC] QIDACANDBED Lab 01/27/21 16:30 Ordered GLUCOSE POC LAB TO COLLECT JPM [POC] QIDACANDBED Lab 01/27/21 21:00 Ordered GLUCOSE POC LAB TO COLLECT JPM [POC] QIDACANDBED Lab 01/28/21 07:30 Ordered GLUCOSE POC LAB TO COLLECT JPM [POC] QIDACANDBED Lab 01/28/21 11:30 Ordered GLUCOSE POC LAB TO COLLECT JPM [POC] QIDACANDBED Lab 01/28/21 16:30 Ordered GLUCOSE POC LAB TO COLLECT JPM [POC] QIDACANDBED Lab 01/28/21 21:00 Ordered GLUCOSE POC LAB TO COLLECT JPM [POC] QIDACANDBED Lab 01/29/21 07:30 Ordered Medication Orders Acetaminophen (Acetaminophen 325 Mg Tab) 650 mg PO Q4H PRN PRN Reason: Pain/Fever Last Admin: 01/21/21 08:21 Dose: 650 mg Documented by: CHIP Hydrocodone Bitart/Acetaminophen (Acetaminophen/Hydrocodone 325-5 Mg Tab) 1 tab PO Q4H PRN PRN Reason: Pain (mild 1-3) Last Admin: 01/27/21 08:52 Dose: 1 tab Documented by: Admin: 01/25/21 15:36 Dose: 1 tab Documented by: Admin: 01/18/21 19:37 Dose: 1 tab Documented by: Admin: 01/18/21 14:47 Dose: 1 tab Documented by: Admin: 01/18/21 10:56 Dose: 1 tab Documented by: CHIP Amlodipine Besylate (Amlodipine 5 Mg Tab) 2.5 mg PO DAILY [facility] Last Admin: 01/27/21 08:55 Dose: 2.5 mg Documented by: Admin: 01/26/21 09:17 Dose: 2.5 mg Documented by: Admin: 01/25/21 08:37 Dose: 2.5 mg Documented by: Admin: 01/24/21 08:27 Dose: 2.5 mg Documented by: Admin: 01/23/21 08:10 Dose: 2.5 mg Documented by: Admin: 01/22/21 08:20 Dose: 2.5 mg Documented by: Admin: 01/21/21 08:29 Dose: 2.5 mg Documented by: Admin: 01/20/21 08:04 Dose: 2.5 mg Documented by: Admin: 01/19/21 08:05 Dose: 2.5 mg Documented by: MATT Calcium Carbonate/Glycine (Calcium Carbonate 500 Mg Tab.Chew) 1,000 mg PO Q2H PRN PRN Reason: Indigestion Last Admin: 01/24/21 21:41 Dose: 1,000 mg Documented by: Admin: 01/20/21 04:11 Dose: 1,000 mg Documented by: ABIOLA Dextrose (Glucose Gel 15 Gm In 37.5 Gm Tube) 15 gm PO ONETIME PRN PRN Reason: Hypoglycemia Dextrose/Water (50% Dextrose In Water 50 Ml Syringe) 50 ml IVPUSH ASDIRECTED PRN PRN Reason: Hypoglycemia Digoxin (Digoxin 125 Mcg Tab) 250 mcg PO DAILY@1300 [facility] Last Admin: 01/26/21 13:06 Dose: 250 mcg Documented by: Admin: 01/25/21 13:59 Dose: 250 mcg Documented by: Admin: 01/24/21 12:46 Dose: 250 mcg Documented by: Admin: 01/23/21 12:11 Dose: 250 mcg Documented by: Admin: 01/22/21 13:13 Dose: 250 mcg Documented by: Admin: 01/21/21 13:37 Dose: 250 mcg Documented by: Admin: 01/20/21 13:56 Dose: 250 mcg Documented by: Admin: 01/19/21 12:29 Dose: 250 mcg Documented by: MATT Docusate Sodium (Docusate Sodium 100 Mg Cap) 100 mg PO BID [facility] Last Admin: 01/27/21 08:53 Dose: 100 mg Documented by: Admin: 01/26/21 20:10 Dose: 100 mg Documented by: Admin: 01/26/21 09:17 Dose: 100 mg Documented by: Admin: 01/25/21 21:14 Dose: 100 mg Documented by: Admin: 01/25/21 08:37 Dose: 100 mg Documented by: Admin: 01/24/21 20:07 Dose: 100 mg Documented by: Admin: 01/24/21 08:27 Dose: 100 mg Documented by: Admin: 01/23/21 21:26 Dose: 100 mg Documented by: Admin: 01/23/21 08:11 Dose: 100 mg Documented by: Admin: 01/22/21 21:00 Dose: 100 mg Documented by: Admin: 01/22/21 08:19 Dose: 100 mg Documented by: Admin: 01/21/21 21:10 Dose: 100 mg Documented by: Admin: 01/21/21 08:28 Dose: Not Given Documented by: Admin: 01/20/21 21:20 Dose: 100 mg Documented by: Admin: 01/20/21 08:04 Dose: 100 mg Documented by: Admin: 01/19/21 21:34 Dose: 100 mg Documented by: Admin: 01/19/21 08:04 Dose: 100 mg Documented by: Admin: 01/18/21 19:59 Dose: 100 mg Documented by: ABIOLA Enoxaparin Sodium (Enoxaparin 30 Mg/0.3 Ml Syringe) 30 mg SUBCUT DAILY [facility] Admin: 01/27/21 08:55 Dose: 30 mg Documented by: Admin: 01/26/21 09:17 Dose: 30 mg Documented by: Admin: 01/25/21 08:36 Dose: 30 mg Documented by: Admin: 01/24/21 08:26 Dose: 30 mg Documented by: Admin: 01/23/21 08:10 Dose: 30 mg Documented by: Admin: 01/22/21 08:20 Dose: 30 mg Documented by: Admin: 01/21/21 08:31 Dose: 30 mg Documented by: Admin: 01/20/21 08:05 Dose: 30 mg Documented by: Admin: 01/19/21 08:04 Dose: 30 mg Documented by: MATT Glucagon (Glucagon,Human Recombinant 1 Mg Vial) 1 mg IM ASDIRECTED PRN PRN Reason: Hypoglycemia Hydrochlorothiazide (Hydrochlorothiazide 25 Mg Tab) 25 mg PO DAILY [facility] Admin: 01/27/21 08:54 Dose: 25 mg Documented by: Admin: 01/26/21 09:17 Dose: 25 mg Documented by: Admin: 01/25/21 08:37 Dose: 25 mg Documented by: Admin: 01/24/21 08:25 Dose: 25 mg Documented by: Admin: 01/23/21 08:11 Dose: 25 mg Documented by: Admin: 01/22/21 08:20 Dose: 25 mg Documented by: Admin: 01/21/21 08:28 Dose: 25 mg Documented by: Admin: 01/20/21 08:05 Dose: 25 mg Documented by: Admin: 01/19/21 08:05 Dose: 25 mg Documented by: MATT Insulin Glargine (Insulin Glargine,Human Rec. Analog 100 Units/Ml 3 Ml Pen) 16 units SUBCUT BEDTIME [facility] Last Admin: 01/26/21 21:45 Dose: 16 units Documented by: ANUJA Cosigned by: GARLAND Admin: 01/25/21 21:09 Dose: 16 units Documented by: ALIE Cosigned by: SUJIT Admin: 01/24/21 21:42 Dose: 16 units Documented by: ALIE Cosigned by: GEE Admin: 01/23/21 21:24 Dose: 16 units Documented by: AVA Cosigned by: ORTEGA Admin: 01/22/21 21:05 Dose: 16 units Documented by: AVA Israeligned by: CODY Insulin Human Lispro (Insulin Lispro 100 Unit/Ml 3 Ml Kwikpen) 0 unit SUBCUT QIDACANDBED [facility]; Protocol Last Admin: 01/27/21 07:23 Dose: Not Given Documented by: Admin: 01/26/21 21:44 Dose: 1 unit Documented by: ANUJA Cosigned by: GARLAND Admin: 01/26/21 18:08 Dose: 1 unit Documented by: ENRIKE Cosigned by: THELMA Admin: 01/26/21 12:20 Dose: 1 unit Documented by: ENRIKE Israeligned by: SHANTELL Admin: 01/26/21 08:39 Dose: 1 unit Documented by: ENRIKE Israeligned by: LIZZIE Admin: 01/25/21 21:10 Dose: 1 unit Documented by: ALIE Cosigned by: SUJIT Admin: 01/25/21 16:56 Dose: Not Given Documented by: Admin: 01/25/21 12:34 Dose: Not Given Documented by: Admin: 01/25/21 08:35 Dose: Not Given Documented by: Admin: 01/24/21 21:43 Dose: 1 unit Documented by: ALIE Israeligned by: GEE Admin: 01/24/21 17:11 Dose: Not Given Documented by: Admin: 01/24/21 11:35 Dose: Not Given Documented by: Admin: 01/24/21 08:05 Dose: Not Given Documented by: Admin: 01/23/21 21:25 Dose: 3 unit Documented by: AVA Cosigned by: ORTEGA Admin: 01/23/21 16:38 Dose: Not Given Documented by: Admin: 01/23/21 11:46 Dose: 1 unit Documented by: SHANTELL Israeligned by: COURTNEY Admin: 01/23/21 07:52 Dose: Not Given Documented by: Admin: 01/22/21 20:57 Dose: Not Given Documented by: Admin: 01/22/21 17:35 Dose: 1 unit Documented by: ANUAJ Israeligned by: SUJIT Admin: 01/22/21 11:24 Dose: Not Given Documented by: Admin: 01/22/21 08:19 Dose: 1 unit Documented by: ANUJA Israeligned by: SUJIT Admin: 01/21/21 21:10 Dose: 2 unit Documented by: GARLAND Israeligned by: SURYA Admin: 01/21/21 16:52 Dose: Not Given Documented by: Admin: 01/21/21 13:34 Dose: 3 unit Documented by: CHIP Jeffries by: SHANTELL Admin: 01/21/21 08:22 Dose: 1 unit Documented by: CHIP Jeffries by: ABIGAIL Admin: 01/20/21 21:21 Dose: Not Given Documented by: Admin: 01/20/21 17:20 Dose: 2 unit Documented by: CHIP Jeffries by: KATHLEEN Admin: 01/20/21 13:54 Dose: 1 unit Documented by: CHIP Jeffries by: ROBERTO Admin: 01/20/21 08:07 Dose: Not Given Documented by: Admin: 01/19/21 21:36 Dose: Not Given Documented by: Admin: 01/19/21 17:31 Dose: 2 unit Documented by: MATT Cosigned by: ANGELIA Lactobacillus Rhamnosus (Lactobacillus Rhamnosus Gg (Probiotic) Cap) 1 cap PO BID [facility] Admin: 01/27/21 08:53 Dose: 1 cap Documented by: Admin: 01/26/21 20:10 Dose: 1 cap Documented by: Admin: 01/26/21 09:17 Dose: 1 cap Documented by: Admin: 01/25/21 21:14 Dose: 1 cap Documented by: Admin: 01/25/21 08:36 Dose: 1 cap Documented by: Admin: 01/24/21 20:07 Dose: 1 cap Documented by: Admin: 01/24/21 08:27 Dose: 1 cap Documented by: Admin: 01/23/21 21:27 Dose: 1 cap Documented by: Admin: 01/23/21 08:10 Dose: 1 cap Documented by: Admin: 01/22/21 20:59 Dose: 1 cap Documented by: Admin: 01/22/21 08:20 Dose: 1 cap Documented by: Admin: 01/21/21 21:10 Dose: 1 cap Documented by: Admin: 01/21/21 10:49 Dose: 1 cap Documented by: Admin: 01/20/21 21:23 Dose: 1 cap Documented by: Admin: 01/20/21 18:13 Dose: 1 cap Documented by: CHIP Liraglutide (Liraglutide (Rdna Origin) 0.6 Mg/0.1 Ml 3 Ml Pen) 1.2 mg SUBCUT DAILY [facility] Admin: 01/27/21 08:56 Dose: 1.2 mg Documented by: Admin: 01/26/21 09:17 Dose: 1.2 mg Documented by: Admin: 01/25/21 08:37 Dose: 1.2 mg Documented by: Admin: 01/24/21 08:27 Dose: 1.2 mg Documented by: Admin: 01/23/21 10:15 Dose: 1.2 mg Documented by: Admin: 01/22/21 08:21 Dose: 1.2 mg Documented by: Admin: 01/21/21 08:32 Dose: 1.2 unit Documented by: Admin: 01/20/21 08:10 Dose: 1.2 unit Documented by: Admin: 01/19/21 08:06 Dose: 1.2 unit Documented by: MATT Lisinopril (Lisinopril 10 Mg Tab) 10 mg PO DAILY [facility] Admin: 01/27/21 08:56 Dose: 10 mg Documented by: Admin: 01/26/21 09:17 Dose: 10 mg Documented by: Admin: 01/25/21 08:37 Dose: 10 mg Documented by: Admin: 01/24/21 08:26 Dose: 10 mg Documented by: Admin: 01/23/21 08:10 Dose: 10 mg Documented by: COURTNEY Magnesium Hydroxide (Magnesium Hydroxide 400 Mg/5 Ml Susp 30 Ml Cup) 30 ml PO BID PRN PRN Reason: Constipation Last Admin: 01/21/21 04:03 Dose: 30 ml Documented by: GARLAND Metformin HCl (Metformin 500 Mg Tab) 1,000 mg PO BIDMEALS [facility] Admin: 01/27/21 08:53 Dose: 1,000 mg Documented by: Admin: 01/26/21 18:08 Dose: 1,000 mg Documented by: Admin: 01/26/21 08:39 Dose: 1,000 mg Documented by: Admin: 01/25/21 17:37 Dose: 1,000 mg Documented by: Admin: 01/25/21 08:36 Dose: 1,000 mg Documented by: Admin: 01/24/21 17:50 Dose: 1,000 mg Documented by: Admin: 01/24/21 08:25 Dose: 1,000 mg Documented by: Admin: 01/23/21 16:40 Dose: 1,000 mg Documented by: Admin: 01/23/21 07:51 Dose: 1,000 mg Documented by: Admin: 01/22/21 17:35 Dose: 1,000 mg Documented by: Admin: 01/22/21 08:19 Dose: 1,000 mg Documented by: Admin: 01/21/21 16:52 Dose: 1,000 mg Documented by: Admin: 01/21/21 08:22 Dose: 1,000 mg Documented by: Admin: 01/20/21 17:23 Dose: 1,000 mg Documented by: Admin: 01/20/21 08:03 Dose: 1,000 mg Documented by: Admin: 01/19/21 17:31 Dose: 1,000 mg Documented by: Admin: 01/19/21 07:43 Dose: 1,000 mg Documented by: Admin: 01/18/21 18:25 Dose: 1,000 mg Documented by: CHIP Morphine Sulfate (Morphine 2 Mg/Ml Syringe) 1 mg IVPUSH Q1H PRN PRN Reason: Breakthrough Pain Last Admin: 01/18/21 11:32 Dose: 1 mg Documented by: CHIP Ondansetron HCl (Ondansetron 4 Mg/2 Ml Sdv) 4 mg IVPUSH Q4H PRN PRN Reason: Nausea/Vomiting Oxycodone/Acetaminophen (Acetaminophen/Oxycodone 325-5 Mg Tab) 1 - 2 tab PO Q4H PRN PRN Reason: Pain Last Admin: 01/26/21 20:09 Dose: 1 tab Documented by: Admin: 01/25/21 21:22 Dose: 1 tab Documented by: Admin: 01/24/21 18:47 Dose: 1 tab Documented by: Admin: 01/24/21 00:29 Dose: 1 tab Documented by: Admin: 01/23/21 12:51 Dose: 1 tab Documented by: Admin: 01/23/21 07:48 Dose: 1 tab Documented by: Admin: 01/22/21 19:59 Dose: 1 tab Documented by: Admin: 01/22/21 12:36 Dose: 1 tab Documented by: Admin: 01/22/21 08:22 Dose: 1 tab Documented by: Admin: 01/21/21 23:30 Dose: 2 tab Documented by: Admin: 01/21/21 18:38 Dose: 2 tab Documented by: Admin: 01/20/21 18:10 Dose: 1 tab Documented by: Admin: 01/20/21 09:49 Dose: 1 tab Documented by: Admin: 01/20/21 03:42 Dose: 1 tab Documented by: Admin: 01/19/21 14:29 Dose: 2 tab Documented by: Admin: 01/19/21 10:21 Dose: 1 tab Documented by: Admin: 01/19/21 05:34 Dose: 1 tab Documented by: Admin: 01/18/21 23:54 Dose: 1 tab Documented by: ABIOLA - Assessment Assessment (Free Text/Narrative):: Has made progress over the last couple of days, not ideal but improved enough that she would be ok at home with assistance and Home Health to follow, working on HH and plan discharge tomorrow with daughter
--- NOTE | 2021-01-27 12:20 | PCM.DCSUM1 ---
Discharge Summary - Hospital Course Free Text/Narrative:: 85 year old with severe DJD of left knee to the point that she was having problems walking in her home and performing ADLs. Admitted for left TKA. Diagnosis: Stroke: No Modified Walton Scale: No Symptoms at All Modified Walton Scale Score: 0 - Discharge Data Discharge Date: 01/27/21 Discharge Disposition: Home, W Home Health Agency 06 Condition: Good - Referral to Home Health Date of Face to Face Encounter: 01/27/21 Reason for Homebound Status: Left Total Knee Arthroplasty, limited mobility Primary Care Physician: Panfilo De Leon MD Skilled Need: Physical Therapy for ambulation, ROM and strengthening - Discharge Diagnosis/Problem(s) (1) Status post left knee replacement SNOMED Code(s): [id number], [id number], [id number] ICD Code: Z96.652 - PRESENCE OF LEFT ARTIFICIAL KNEE JOINT Status: Acute Current Visit: Yes - Patient Summary/Data Operative Procedure(s) Performed: Left TKA Complications: None Consults: Consultations 01/18/21 09:28 Consult to Case Management/Manager Operating [CONS] Routine Comment: Physician Instructions: Service(s) to be Consulted: Case Management Reason for Consult: Plan for Discharge Special Instructions: s/p LTKA OT Evaluation and Treatment [CONS] Routine Please Evaluate and Treat. OT Reason for Consult: ADL's Special Instructions: s/p L TKA This query below is only for informational purposes and is not editable. PT Evaluation and Treatment [CONS] Routine Please Evaluate and Treat. PT Reason for Consult: Post op Ortho Surgery Special Instructions: s/p LTKA This query below is only for informational purposes and is not editable. PT Evaluation and Treatment [CONS] Routine Please Evaluate and Treat. PT Reason for Consult: Post op Ortho Surgery Knee Pending Discharge: Yes, 1- 2 days Special Instructions: Schedule first outpatient PT appointment in 3-5 day post discharge. This query below is only for informational purposes and is not editable. 01/19/21 10:55 Consult to Physician [CONS] Routine Consulting Provider: Roly Ely Call Completed to Consulting Physician: Yes Reason for Consult: elevated glucose + elevated BUN/creat, decreased UO Person Notified: Dr. Ely Date Notified: 01/19/21 Time Notified: 10:56 Hospital Course: Admitted after TKA. Tolerated the procedure well but was very limited in ambulation. Was only able to get a few feet in room for first several days. Had initially hoped to go home with daughter but limited mobility made it unsafe and started looking for SNF/Rehab facilities. Had a little bout of confusion for a day which cleared with medication adjustment. Was evaluated by Hospitalist and follow by them during her stay. Made slow progress with PT but was able to get walking in hallway after one week. Since no beds have been available plan to discharge to home with Home Health to follow. Follow up with Ortho as scheduled. - Patient Instructions Diet: Usual Diet as Tolerated Activity: Apply Ice, As Tolerated, Full Weight Bearing Driving: Do Not Drive Showering/Bathing: May Shower Notify Provider of: Fever, Increased Pain, Swelling and Redness, Drainage, Nausea and/or Vomiting Other/Special Instructions: Aspirin 325mg twice a day - Discharge Plan *PRESCRIPTION DRUG MONITORING PROGRAM REVIEWED*: No *COPY OF PRESCRIPTION DRUG MONITORING REPORT IN PATIENT ABRAHAM: No Prescriptions/Med Rec: Acetaminophen/HYDROcodone [HYDROcodone-Acetaminophen 325-5 MG] 1 - 2 tab PO Q6H PRN #36 tab PRN Reason: Pain Home Medications: Home Meds Digoxin 0.25 mg PO DAILY 11/13/17 [History] metFORMIN [Glucophage] 1,000 mg PO BIDMEALS 11/13/17 [History] Aspirin [Angelique Chewable Aspirin] 81 mg PO DAILY 01/06/20 [History] Insulin Detemir [Levemir Flextouch] 5 units SUBCUT BEDTIME 01/06/20 [History] Liraglutide [Victoza] 1.2 mg SUBCUT DAILY 01/06/20 [History] lisinopriL [Lisinopril] 30 mg PO DAILY 01/06/20 [History] amLODIPine [Norvasc] 2.5 mg PO DAILY 01/12/21 [History] hydroCHLOROthiazide [Hydrochlorothiazide] 25 mg PO DAILY 01/12/21 [History] Acetaminophen/HYDROcodone [HYDROcodone-Acetaminophen 325-5 MG] 1 - 2 tab PO Q6H PRN #36 tab 01/27/21 [Rx] Oxygen Therapy Mode: Room Air Patient Handouts: Total Knee Replacement, Care After, [id number], Preventing Problems After Surgery, How to Prevent Constipation After Surgery Referrals: Nikolai Fisher PA [Ordering Only Provider] - 02/02/21 1:30 pm (Please arrive 15 minutes early to register for your appointment.) - Discharge Summary/Plan Comment DC Time >30 min.: No Total # of Minutes for Discharge Time: 20 minites Discharge Summary/Plan Comment: Discharge to home with daughter. Home Health to follow. Follow up Ortho as scheduled. - General Info Functional Status: Reports: Pain Controlled, Tolerating Diet, Ambulating, Urinating - Review of Systems General: Reports: No Symptoms HEENT: Reports: No Symptoms Pulmonary: Reports: No Symptoms Cardiovascular: Reports: No Symptoms Gastrointestinal: Reports: No Symptoms Genitourinary: Reports: No Symptoms Musculoskeletal: Reports: Leg Pain, Joint Swelling (swelling continues to improve, ecchymosis still present) Skin: Reports: No Symptoms Neurological: Reports: No Symptoms Psychiatric: Reports: No Symptoms - Patient Data Vitals - Most Recent: Last Vital Signs Temp 37.2 C 01/27/21 11:00 Pulse 101 H 01/27/21 11:00 Resp 16 01/27/21 11:00 BP 113/61 01/27/21 11:00 Pulse Ox 100 01/27/21 11:00 Orthostatic Blood Pressure [ 125/62 Standing] Orthostatic Blood Pressure [ 107/45 Sitting] Orthostatic Blood Pressure [ 117/51 Supine] Weight - Most Recent: 53.841 kg I&O - Last 24 hours: Intake & Output 01/26/21 01/27/21 01/27/21 22:59 06:59 14:59 Intake Total 480 240 300 Balance 480 240 300 Lab Results - Last 24 hrs: Laboratory Results - last 24 hr 01/26/21 01/26/21 01/27/21 Range/Units 16:24 21:06 07:18 POC Glucose 165 H 186 H 132 H (74-106) mg/dL 01/27/21 Range/Units 11:34 POC Glucose 146 H (74-106) mg/dL Med Orders - Current: Current Medications Acetaminophen (Acetaminophen 325 Mg Tab) 650 mg PO Q4H PRN PRN Reason: Pain/Fever Last Admin: 01/21/21 08:21 Dose: 650 mg Documented by: Hydrocodone Bitart/Acetaminophen (Acetaminophen/Hydrocodone 325-5 Mg Tab) 1 tab PO Q4H PRN PRN Reason: Pain (mild 1-3) Last Admin: 01/27/21 08:52 Dose: 1 tab Documented by: Amlodipine Besylate (Amlodipine 5 Mg Tab) 2.5 mg PO DAILY [facility] Last Admin: 01/27/21 08:55 Dose: 2.5 mg Documented by: Calcium Carbonate/Glycine (Calcium Carbonate 500 Mg Tab.Chew) 1,000 mg PO Q2H PRN PRN Reason: Indigestion Last Admin: 01/24/21 21:41 Dose: 1,000 mg Documented by: Dextrose (Glucose Gel 15 Gm In 37.5 Gm Tube) 15 gm PO ONETIME PRN PRN Reason: Hypoglycemia Dextrose/Water (50% Dextrose In Water 50 Ml Syringe) 50 ml IVPUSH ASDIRECTED PRN PRN Reason: Hypoglycemia Digoxin (Digoxin 125 Mcg Tab) 250 mcg PO DAILY@1300 [facility] Last Admin: 01/26/21 13:06 Dose: 250 mcg Documented by: Docusate Sodium (Docusate Sodium 100 Mg Cap) 100 mg PO BID [facility] Last Admin: 01/27/21 08:53 Dose: 100 mg Documented by: Enoxaparin Sodium (Enoxaparin 30 Mg/0.3 Ml Syringe) 30 mg SUBCUT DAILY [facility] Last Admin: 01/27/21 08:55 Dose: 30 mg Documented by: Glucagon (Glucagon,Human Recombinant 1 Mg Vial) 1 mg IM ASDIRECTED PRN PRN Reason: Hypoglycemia Hydrochlorothiazide (Hydrochlorothiazide 25 Mg Tab) 25 mg PO DAILY [facility] Last Admin: 01/27/21 08:54 Dose: 25 mg Documented by: Insulin Glargine (Insulin Glargine,Human Rec. Analog 100 Units/Ml 3 Ml Pen) 16 units SUBCUT BEDTIME [facility] Last Admin: 01/26/21 21:45 Dose: 16 units Documented by: Insulin Human Lispro (Insulin Lispro 100 Unit/Ml 3 Ml Kwikpen) 0 unit SUBCUT QIDACANDBED [facility]; Protocol Last Admin: 01/27/21 07:23 Dose: Not Given Documented by: Lactobacillus Rhamnosus (Lactobacillus Rhamnosus Gg (Probiotic) Cap) 1 cap PO BID [facility] Last Admin: 01/27/21 08:53 Dose: 1 cap Documented by: Liraglutide (Liraglutide (Rdna Origin) 0.6 Mg/0.1 Ml 3 Ml Pen) 1.2 mg SUBCUT DAILY [facility] Last Admin: 01/27/21 08:56 Dose: 1.2 mg Documented by: Lisinopril (Lisinopril 10 Mg Tab) 10 mg PO DAILY [facility] Last Admin: 01/27/21 08:56 Dose: 10 mg Documented by: Magnesium Hydroxide (Magnesium Hydroxide 400 Mg/5 Ml Susp 30 Ml Cup) 30 ml PO BID PRN PRN Reason: Constipation Last Admin: 01/21/21 04:03 Dose: 30 ml Documented by: Metformin HCl (Metformin 500 Mg Tab) 1,000 mg PO BIDMEALS [facility] Last Admin: 01/27/21 08:53 Dose: 1,000 mg Documented by: Morphine Sulfate (Morphine 2 Mg/Ml Syringe) 1 mg IVPUSH Q1H PRN PRN Reason: Breakthrough Pain Last Admin: 01/18/21 11:32 Dose: 1 mg Documented by: Ondansetron HCl (Ondansetron 4 Mg/2 Ml Sdv) 4 mg IVPUSH Q4H PRN PRN Reason: Nausea/Vomiting Oxycodone/Acetaminophen (Acetaminophen/Oxycodone 325-5 Mg Tab) 1 - 2 tab PO Q4H PRN PRN Reason: Pain Last Admin: 01/26/21 20:09 Dose: 1 tab Documented by: Discontinued Medications Albuterol/Ipratropium (Albuterol/Ipratropium 3.0-0.5 Mg/3 Ml Neb Soln) 3 ml NEB ONETIME ONE Stop: 01/18/21 07:36 Last Admin: 01/18/21 07:43 Dose: 3 ml Documented by: Bandage/Support Products (Nozin Nasal Electronics System Mechanic) 1 applic NASBOTH BID [facility] Last Admin: 01/18/21 06:43 Dose: 1 applic Documented by: Bandage/Support Products (Nozin Nasal Electronics System Mechanic) 1 applic NASBOTH BID [facility] Stop: 01/24/21 21:01 Last Admin: 01/24/21 20:07 Dose: 1 applic Documented by: Dextrose/Water (50% Dextrose In Water 50 Ml Syringe) 50 ml IVPUSH ASDIRECTED PRN PRN Reason: Hypoglycemia Fentanyl (Fentanyl 100 Mcg/2 Ml Sdv) Confirm Administered Dose 100 mcg .ROUTE .STK-MED ONE Stop: 01/18/21 07:51 Glucagon (Glucagon,Human Recombinant 1 Mg Vial) 1 mg IM ASDIRECTED PRN PRN Reason: Hypoglycemia Cefazolin Sodium/Dextrose (Ancef 2 Gm/50 Ml) 50 mls @ 100 mls/hr IV ONETIME ONE Stop: 01/18/21 06:29 Last Admin: 01/18/21 07:50 Dose: 100 mls/hr Documented by: Lactated Ringer's (Ringers, Lactated) 1,000 mls @ 75 mls/hr IV ASDIRECTED [facility] Last Admin: 01/18/21 06:42 Dose: 75 mls/hr Documented by: Lactated Ringer's (Ringers, Lactated) Confirm Administered Dose 1,000 mls @ as directed .ROUTE .STK-MED ONE Stop: 01/18/21 08:33 Sodium Chloride (Normal Saline) 1,000 mls @ 125 mls/hr IV ASDIRECTED [facility] Last Admin: 01/19/21 04:34 Dose: 125 mls/hr Documented by: Cefazolin Sodium/Dextrose 1 gm (/ Premix) 50 mls @ 200 mls/hr IV Q8H [facility] Stop: 01/19/21 06:14 Last Admin: 01/19/21 05:31 Dose: 200 mls/hr Documented by: Insulin Glargine (Insulin Glargine,Human Rec. Analog 100 Units/Ml 3 Ml Pen) 5 units SUBCUT BEDTIME [facility] Last Admin: 01/18/21 21:18 Dose: 5 units Documented by: Insulin Glargine (Insulin Glargine,Human Rec. Analog 100 Units/Ml 3 Ml Pen) 10 units SUBCUT BEDTIME [facility] Last Admin: 01/21/21 21:11 Dose: 10 units Documented by: Insulin Glargine (Insulin Glargine,Human Rec. Analog 100 Units/Ml 3 Ml Pen) 14 units SUBCUT BEDTIME [facility] Insulin Glargine (Insulin Glargine,Human Rec. Analog 100 Units/Ml 3 Ml Pen) 4 units SUBCUT BID ONE Stop: 01/21/21 22:01 Last Admin: 01/21/21 23:26 Dose: 4 units Documented by: Insulin Human Lispro (Insulin Lispro 100 Unit/Ml 3 Ml Kwikpen) 1 unit SUBCUT QIDACANDBED [facility]; Protocol Stop: 01/18/21 19:00 Last Admin: 01/19/21 00:30 Dose: Not Given Documented by: Insulin Human Lispro (Insulin Lispro 100 Unit/Ml 3 Ml Kwikpen) 0 unit SUBCUT QIDACANDBED [facility]; Protocol Stop: 01/22/21 20:00 Last Admin: 01/19/21 07:43 Dose: 1 units Documented by: Lisinopril 20 mg/ Lisinopril (10 mg) 30 mg PO DAILY [facility] Last Admin: 01/22/21 08:21 Dose: 30 mg Documented by: Midazolam HCl (Midazolam 1 Mg/Ml 2 Ml Sdv) Confirm Administered Dose 2 mg .ROUTE .STK-MED ONE Stop: 01/18/21 07:51 Non-Formulary Medication (Lisinopril [Lisinopril]) 30 mg PO DAILY [facility] Povidone Iodine (Povidone-Iodine 10% Soln 118.25 Ml Bottle) Confirm Administered Dose 1 ml .ROUTE .STK-MED ONE Stop: 01/18/21 06:46 Last Admin: 01/18/21 08:25 Dose: 30 ml Documented by: Propofol (Propofol 200 Mg/20 Ml Sdv) Confirm Administered Dose 200 mg .ROUTE .STK-MED ONE Stop: 01/18/21 07:51 - Exam General: Reports: Alert, Oriented Neck: Reports: Supple Cardiovascular: Reports: Regular Rate, Regular Rhythm GI/Abdominal Exam: Normal Bowel Sounds, Soft, Non-Tender, No Distention (Female) Exam: Deferred Rectal (Female) Exam: Deferred Back Exam: Reports: Normal Inspection Extremities: Limited Range of Motion Skin: Reports: Warm, Dry Wound/Incisions: Reports: Healing Well, No Drainage Neurological: Reports: No New Focal Deficit Psy/Mental Status: Reports: Alert, Normal Affect, Normal Mood
[2021-01-27] MEDS: Digoxin 125 MCG Tab PO SCH (12:35)
--- NOTE | 2021-02-02 08:28 | OR ---
DATE OF PROCEDURE: 01/18/2021 SURGEON: Clay Rogers MD PREOPERATIVE DIAGNOSIS: Osteoarthritis, left knee. POSTOPERATIVE DIAGNOSIS: Severe osteoarthritis, left knee. PROCEDURE PERFORMED: Left total knee arthroplasty using Britta Persona components with a size 8 femur, D tibia 13 mm polyethylene, and 29 mm patella. HUMAN SERVICE COORDINATOR: PEDRITO Merrill ANESTHESIA: Spinal with sedation. INDICATIONS: Chelsea is an 85-year-old female with a history of progressive left knee pain over the past couple of years. It has become severe enough recently that she has been having difficulty with activities of daily living, standing long enough to cook, etc. She now presents for left total knee arthroplasty. Risks, benefits, and potential complications of the procedure were discussed with Chelsea and her family. DESCRIPTION OF PROCEDURE: After adequate anesthesia was obtained, the patient was placed supine with a tourniquet about the left upper thigh. The left leg was prepped and draped in a sterile fashion. The leg was exsanguinated and tourniquet inflated to 300 mmHg pressure. A longitudinal incision was made over the anterior aspect of the knee and carried down to the subcutaneous tissues. A medial parapatellar arthrotomy was performed. Moderate effusion was present. The patella was partially everted, held with towel clips, and the posterior aspect was resected with an oscillating saw. The knee was flexed, revealing the articular surfaces which revealed severe degenerative changes, particularly of the medial compartment with complete articular cartilage loss. Intramedullary canal of the femur was drilled. Distal femoral cut was made. Extramedullary tibial alignment jig was placed. Proximal tibia was resected with an oscillating saw, and remaining menisci were excised. The knee was flexed, and the distal femur was sized to a number 8 component. An 8 cutting jig was secured. Anterior, posterior, and chamfer cuts were made. The cutting jig was removed, and the trial femur was placed. Intercondylar notch was cut for a posterior cruciate-sacrificing component. The tibia sized to a D component. This was pinned in place, and the tibia was drilled and punched. A trial reduction was then done with a 12 mm insert, and patella was drilled for a 29 mm component. The patella had very slight lateral tracking, and a lateral release was performed. The components were removed. The knee was thoroughly irrigated with pulse lavage, and surfaces were dried. The components were cemented in place, and excess cement was removed. The knee was held in full extension as the cement cured with the trial implant. The patella tracked well, and a 13 mm polyethylene was chosen. The trial polyethylene was removed, the knee was irrigated, and the final polyethylene was snapped into position. The knee was irrigated once again followed by a dilute Betadine solution which was left in place for 2-1/2 minutes and then irrigated. The knee was closed with #2 Ethibond in interrupted fashion in the capsule, 2-0 Vicryl and a running 3-0 Monocryl. Steri-Strips were applied. A light compressive dressing was then placed. The patient tolerated the procedure well. There were no complications. She was taken from the operating room in stable condition. Clay Rogers MD /[id number]
== END 2021-01-27 15:05 | disposition home health service (06) | DRG 470 ==
LOC: JP.SDS 05:41 → JP.MS 09:30 → JP.SDS 01-19 08:06 → JP.MS 01-19 08:06
PROVIDERS: ADMIT Specialist; ATTEND Specialist
PROC: 0SRD0J9 Replacement of Left Knee Joint with Synthetic Substitute, Cemented, Open Approach (ICD-10-PCS; principal; 2021-01-18)
DX: M17.12 Unilateral primary osteoarthritis, left knee (principal); D62 Acute posthemorrhagic anemia; F17.210 Nicotine dependence, cigarettes, uncomplicated; I48.0 Paroxysmal atrial fibrillation; I12.9 Hypertensive chronic kidney disease with stage 1 through stage 4 chronic kidney disease, or unspecified chronic kidney disease; E11.22 Type 2 diabetes mellitus with diabetic chronic kidney disease; N18.31 Chronic kidney disease, stage 3a; H54.7 Unspecified visual loss; K57.90 Diverticulosis of intestine, part unspecified, without perforation or abscess without bleeding; E11.42 Type 2 diabetes mellitus with diabetic polyneuropathy; Z79.4 Long term (current) use of insulin; Z88.8 Allergy status to other drugs, medicaments and biological substances; Z86.73 Personal history of transient ischemic attack (TIA), and cerebral infarction without residual deficits; Z90.49 Acquired absence of other specified parts of digestive tract
CPT/HCPCS: 27447; 36415; 73560-26-LT; 73560-LT; 80048; 80053; 82947; 85025; 85027; 86850; 86900; 86901; 94640; 97110-GP; 97116-GP; 97162-GP; 97165-GO; 97530-GP; 97535-GO; 97535-GP; A9270-GY; C1713; C1776; J0690; J1650; J1815; J1815-GY; J2250; J2270; J2704; J3010; J7030; J7120; J7620-GY